=== PATIENT | female | born 1935 | race Caucasian/White ===

== ENCOUNTER 2016-08-25 18:10 | Inpatient (IN) ==
--- NOTE | 2016-08-25 18:35 | Emergency Department Note ---
Disposition Clinical Impression: UTI (urinary tract infection), Altered mental status Disposition: Admitted As Inpatient Weakness HPI - General Chief complaint: ED Weakness Stated complaint: lethargic Source: EMS Nursing Notes Reviewed: Yes Vital Signs Reviewed: Yes - History of Present Illness HPI Narrative: Patient was found unresponsive at the half-way. Per report last known well was 5 PM at dinnertime. The patient's found the 6:00 unresponsive. EMS arrived and notes that the patient was not following commands. At times been going on patient has been improving and able to follow commands. There is a report of fevers or chills no report of shortness of breath. Patient has had a questionable history of seizures in the past. The family does not believe the patient truly has seizures but they are unsure. He states this normally happens whenever she has a urinary tract infection. Pain Scale: 0 - Related Data Home Medications Medication Instructions Recorded Confirmed Carbidopa/Levodopa [Carbidopa-Levo 2 tab PO TID 12/14/15 02/22/16 ER 25-100 Tab] Aspirin [Lo-Dose Aspirin EC] 81 mg PO DAILY 01/22/16 02/22/16 Ferrous Sulfate [Iron] 325 mg PO DAILY 01/22/16 02/22/16 FluocinoNIDE 0.05% CRM [Lidex] 1 appl TP DAILY 01/22/16 02/22/16 Multivit-Min/FA/Lycopen/Lutein 1 tab PO DAILY 01/22/16 02/22/16 [Centrum Silver Tablet] Pravastatin Sodium 10 mg PO DAILY 01/22/16 02/22/16 Amlodipine Besylate 2.5 mg PO DAILY 02/22/16 02/22/16 Salicylic Acid [Dermarest 1 appl TP MOTH 02/22/16 02/22/16 Psoriasis] Previous Rx's Medication Instructions Recorded Ascorbate Calcium [Vitamin C] 500 mg PO BID #60 tablet 12/15/15 Cholecalciferol (Vitamin D3) 5,000 unit PO DAILY #30 capsule 12/15/15 [Dialyvite Vitamin D] Cranberry 800 mg PO TIDWM #180 capsule 12/15/15 Docusate [Colace] 100 mg PO BID capsule 12/15/15 Mirtazapine [Remeron] 15 mg PO HS #0 tablet 01/25/16 Ampicillin Trihydrate 500 mg PO Q6H 5 Days 02/25/16 Sulfamethoxazole/Trimeth DS 1 each PO BID 10 Days 05/23/16 [Bactrim DS] Allergies Allergy/AdvReac Type Severity Reaction Status Date / Time No Known Allergies Allergy Verified 02/22/16 10:15 All systems ED: reviewed and negative except as stated. 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 - Social History Smoking Status: Former smoker Smokeless Tobacco Status: No Alcohol use: Reports: none Drug use: Reports: none Physical Exam - General Limitations: altered mental status General appearance: alert, in no apparent distress - Head Head exam: atraumatic, normocephalic, normal inspection - Eye Eye exam: Present: PERRL, EOMI - ENT ENT exam: normal exam, normal oropharynx, mucous membranes moist - Neck Neck exam: Present: normal inspection, full ROM, trachea midline - Chest Chest inspection: Present: normal inspection, symmetric chest wall rise - Respiratory Respiratory exam: Present: normal lung sounds bilaterally, respiratory distress - Cardiovascular Cardiovascular exam: Present: regular rate, normal rhythm, normal heart sounds - Abdominal Exam Abdominal exam: Present: soft, Non-Tender. Absent: tenderness, distention, guarding, rebound, rigidity - Extremities Exam Extremities exam: Present: normal inspection, full ROM - Back Exam Back exam: Present: normal inspection, full ROM. Absent: tenderness - Neurological Exam Neurological exam: Present: alert, other (Nonverbal but able to follow commands. Left upper extremity weakness when compared to the right) - Skin Skin exam: Present: warm, dry, intact, normal color Course Vital Signs Temperature 98 F 08/25/16 18:13 Pulse Rate 92 08/25/16 18:13 Respiratory Rate 18 08/25/16 18:13 Blood Pressure 130/69 08/25/16 18:13 O2 Sat by Pulse Oximetry 97 08/25/16 18:13 Temperature 97.8 F 08/25/16 18:34 Pulse Rate 88 08/25/16 21:31 Respiratory Rate 14 08/25/16 21:31 Blood Pressure 133/85 08/25/16 21:31 O2 Sat by Pulse Oximetry 96 08/25/16 21:31 Oxygen Delivery Oxygen Delivery Room Air Weakness - Differential Diagnosis Differential Diagnosis: Likely: acute myocardial infarction, rhabdomyolysis, dehydration, stroke - Medical Records Medical records reviewed: Yes I reviewed the patient's medical records. - Lab Data Lab results reviewed: Yes I reviewed the patient's lab results. Result diagrams: 08/25/16 18:15 08/25/16 18:15 Lab Results 08/25/16 08/25/16 08/25/16 Range/Units 18:15 18:15 18:15 WBC 24.5 H (4.3-11.1) K/mcL RBC 4.71 (3.82-4.97) M/mcL Hgb 13.5 (11.5-15.4) g/dL Hct 43.2 (35.3-44.9) % MCV 91.7 (83.0-100.0) fL MCH 28.7 (28.0-33.3) pg MCHC 31.3 L (31.6-35.5) g/dL RDW 13.6 (11.5-14.5) % Plt Count 403 H (140-400) K/mcL MPV 10.4 (9.4-12.4) fL Immature Gran % 0.7 (0-4) % Seg Neutrophils % 82.5 % Lymphocytes % 10.4 % Monocytes % 5.8 % Eosinophils % 0.3 % Basophils % 0.3 % Neutrophils # 20.2 H (1.6-8.9) K/mcL Lymphocytes # 2.5 (0.6-4.6) K/mcL Monocytes # 1.4 H (0.0-1.3) K/mcL Eosinophils # 0.1 (0.0-0.6) K/mcL Basophils # 0.1 (0.0-0.2) K/mcL PT 11.1 (9.4-12.1) Seconds INR 1.0 APTT 26.4 (26.0-36.0) Seconds Sodium 142 (136-145) mEq/L Potassium 4.7 H (3.5-4.5) mEq/L Chloride 108 (98-109) mEq/L Carbon Dioxide 22 (19-29) mEq/L BUN 53 H (7-20) mg/dL Creatinine 0.95 (0.57-1.11) mg/dL Est GFR ( Amer) > 60 (> 60) Est GFR (Non-Af Amer) 57 L (> 60) BUN/Creatinine Ratio 56 H (6-26) Glucose 114 H (70-99) mg/dL Calculated Osmolality 309 H (280-300) Lactic Acid (0.5-2.2) mmol/L Calcium 10.3 (8.6-10.8) mg/dL Total Bilirubin 0.6 (0.2-1.2) mg/dL AST 13 (5-34) Units/L ALT < 6 (0-55) Units/L Alkaline Phosphatase 104 (38-126) Units/L Troponin I (0-0.03) ng/mL Serum Total Protein 7.5 (6.0-8.3) g/dL Albumin 3.2 L (3.5-5.0) g/dL Globulin 4.3 H (2.4-3.5) g/dL Albumin/Globulin Ratio 0.7 L (1.1-2.2) Urine Color (Yellow) Urine Clarity (Clear) Urine pH (5.0-8.0) pH Units Ur Specific [place] (1.010-1.025) Urine Protein (Neg-Trace) mg/dL Urine Glucose (UA) (Normal) mg/dL Urine Ketones (Negative) mg/dL Urine Blood (Negative) Urine Nitrite (Negative) Urine Bilirubin (Negative) Urine Urobilinogen (Normal) mg/dL Ur Leukocyte Esterase (Negative) Urine Microscopic RBC (0-3) per hpf Urine Microscopic WBC (0-3) per hpf Ur Squamous Epith Cells (None-Few) per lpf Urine Bacteria (None-Few) per hpf Hyaline Casts (None-Few) per lpf Ur Culture Indicated? (NO) 08/25/16 08/25/16 08/25/16 Range/Units 18:15 18:15 20:50 WBC (4.3-11.1) K/mcL RBC (3.82-4.97) M/mcL Hgb (11.5-15.4) g/dL Hct (35.3-44.9) % MCV (83.0-100.0) fL MCH (28.0-33.3) pg MCHC (31.6-35.5) g/dL RDW (11.5-14.5) % Plt Count (140-400) K/mcL MPV (9.4-12.4) fL Immature Gran % (0-4) % Seg Neutrophils % % Lymphocytes % % Monocytes % % Eosinophils % % Basophils % % Neutrophils # (1.6-8.9) K/mcL Lymphocytes # (0.6-4.6) K/mcL Monocytes # (0.0-1.3) K/mcL Eosinophils # (0.0-0.6) K/mcL Basophils # (0.0-0.2) K/mcL PT (9.4-12.1) Seconds INR APTT (26.0-36.0) Seconds Sodium (136-145) mEq/L Potassium (3.5-4.5) mEq/L Chloride (98-109) mEq/L Carbon Dioxide (19-29) mEq/L BUN (7-20) mg/dL Creatinine (0.57-1.11) mg/dL Est GFR ( Amer) (> 60) Est GFR (Non-Af Amer) (> 60) BUN/Creatinine Ratio (6-26) Glucose (70-99) mg/dL Calculated Osmolality (280-300) Lactic Acid 2.8 H (0.5-2.2) mmol/L Calcium (8.6-10.8) mg/dL Total Bilirubin (0.2-1.2) mg/dL AST (5-34) Units/L ALT (0-55) Units/L Alkaline Phosphatase (38-126) Units/L Troponin I 0.02 (0-0.03) ng/mL Serum Total Protein (6.0-8.3) g/dL Albumin (3.5-5.0) g/dL Globulin (2.4-3.5) g/dL Albumin/Globulin Ratio (1.1-2.2) Urine Color Yellow (Yellow) Urine Clarity Cloudy A (Clear) Urine pH 6.0 (5.0-8.0) pH Units Ur Specific [place] 1.021 (1.010-1.025) Urine Protein Trace (Neg-Trace) mg/dL Urine Glucose (UA) Normal (Normal) mg/dL Urine Ketones Trace H (Negative) mg/dL Urine Blood Negative (Negative) Urine Nitrite Negative (Negative) Urine Bilirubin Negative (Negative) Urine Urobilinogen Normal (Normal) mg/dL Ur Leukocyte Esterase Large H (Negative) Urine Microscopic RBC 3-5 H (0-3) per hpf Urine Microscopic WBC TNTC H (0-3) per hpf Ur Squamous Epith Cells Few (None-Few) per lpf Urine Bacteria Many H (None-Few) per hpf Hyaline Casts None Seen (None-Few) per lpf Ur Culture Indicated? YES A (NO) - Radiology Data Radiology results reviewed: Yes I reviewed the patient's radiology results. Head CT 08/25/16 00:00 IMPRESSION: 1. No acute intracranial abnormality. 2. Acute right sphenoid sinusitis. 3. Cerebral and cerebellar parenchymal volume loss with severe chronic microvascular white matter ischemic disease, stable. Results discussed with Dr. Shannon at 1840 hours on 08/25/2012. D/ / 08/25/2016 18:56:46 Angelito Cabezas MD / luisito Interpreting Provider: Angelito Cabezas MD Chest X-Ray 08/25/16 18:34 IMPRESSION: 1. Emphysema and sequela of old granulomatous disease, stable. No new lung infiltrate. D/ / Angelito Cabezas MD / Angelito Cabezas MD Interpreting Provider: Angelito Cabezas MD - EKG Data EKG attestation: Yes I reviewed and interpreted this EKG. EKG shows normal: sinus rhythm Rate: normal Rhythm: NSR Critical Care Time Total Critical Care Time: 45 Attestation: Critical care performed: Time is exclusive of separately billable procedures. Time includes: direct patient care, patient reassessment, coordination of patient care, interpretation of data (laboratory data, radiology data, and respiratory data), review of patient's medical records, medical consultation and documentation of patient care. Procedures included in critical care time: Procedures excluded from critical care time:
[2016-08-25 18:41] LABS: Basophils # 0.1 K/mcL (0.0-0.2); Basophils % 0.3 %; Eosinophils # 0.1 K/mcL (0.0-0.6); Eosinophils % 0.3 %; Hematocrit 43.2 % (35.3-44.9); Hemoglobin 13.5 g/dL (11.5-15.4); Immature Granulocytes % 0.7 % (0-4); Lymphocytes # 2.5 K/mcL (0.6-4.6); Lymphocytes % 10.4 %; Mean Corpuscular HGB Conc 31.3 g/dL (31.6-35.5); Mean Corpuscular Hemoglobin 28.7 pg (28.0-33.3); Mean Corpuscular Volume 91.7 fL (83.0-100.0); Mean Platelet Volume 10.4 fL (9.4-12.4); Monocytes # 1.4 K/mcL (0.0-1.3); Monocytes % 5.8 %; Neutrophils # 20.2 K/mcL (1.6-8.9); Platelet Count 403 K/mcL (140-400); Red Blood Count 4.71 M/mcL (3.82-4.97); Red Cell Distribution Width 13.6 % (11.5-14.5); Segmented Neutrophils % 82.5 %
[2016-08-25 18:48] LABS: Prothrombin Time 11.1 Seconds (9.4-12.1)
[2016-08-25 18:50] LABS: Albumin 3.2 g/dL (3.5-5.0); Albumin/Globulin Ratio 0.7 (1.1-2.2); Alkaline Phosphatase 104 Units/L (38-126); Aspartate Amino Transferase 13 Units/L (5-34); BUN/Creatinine Ratio 56 (6-26); Bilirubin,Total 0.6 mg/dL (0.2-1.2); Blood Urea Nitrogen 53 mg/dL (7-20); Calcium 10.3 mg/dL (8.6-10.8); Carbon Dioxide 22 mEq/L (19-29); Chloride 108 mEq/L (98-109); Globulin 4.3 g/dL (2.4-3.5); Glucose 114 mg/dL (70-99); Osmolality,Calculated 309 (280-300); Potassium 4.7 mEq/L (3.5-4.5); Sodium 142 mEq/L (136-145); Total Protein 7.5 g/dL (6.0-8.3); eGFR For African Americans > 60 (> 60); eGFR For Non-African Americans 57 (> 60)
[2016-08-25 18:51] LABS: Activated Partial Thrombo Time 26.4 Seconds (26.0-36.0)
[2016-08-25 18:56] LABS: Alanine Aminotransferase < 6 Units/L (0-55)
[2016-08-25] MEDS ORDERED: 0.9 % Sodium Chloride 500 ML IV ONE (19:11)
[2016-08-25] MEDS ORDERED: Levofloxacin 750 MG/150 ML 750 MG/150 ML BAG IVPB ONE (19:12)
[2016-08-25] MEDS ORDERED: 0.9 % Sodium Chloride 500 ML IVC ONE (20:50)
[2016-08-25 21:09] LABS: Bilirubin,Urine Negative (Negative); Blood,Urine Negative (Negative); Clarity,Urine Cloudy (Clear); Color,Urine Yellow (Yellow); Glucose,Urine (UA) Normal (Normal); Ketones,Urine Trace mg/dL (Negative); Leukocyte Esterase,Urine Large (Negative); Nitrite,Urine Negative (Negative); Protein,Urine Trace mg/dL (Neg-Trace); Specific Gravity,Urine 1.021 (1.010-1.025); Urobilinogen,Urine Normal (Normal)
[2016-08-25 21:12] LABS: Bacteria,Urine Many per hpf (None-Few); Hyaline Casts,Urine None Seen per lpf (None-Few); WBC,Urine TNTC per hpf (0-3)
[2016-08-25 21:27] LABS: Squamous Epithelial Cell,Urine Few per lpf (None-Few)
[2016-08-25] MEDS ORDERED: Phenytoin 1,000 MG in SYRINGE 1 EACH IVPB ONE (21:50)
--- NOTE | 2016-08-25 23:24 | Internal Med History&Physical ---
Date of Encounter: 08/26/16 Time of Encounter: 23:19 Assessment and Plan (1) Seizure Current visit: Yes Status: Acute Patient sustained a grand mal seizure as she had periods of unresponsiveness after full body tonic-clonic movements Start patient on Dilantin 100 mg 3 times a day Consult neurology, appreciate recommendations Obtain Dilantin level and procalcitonin in the morning (2) UTI (urinary tract infection) Current visit: No Status: Acute Patient does have history of recurrent urinary tract infections including several organisms resistant to multiple drugs Previous culture sensitivities reviewed, will start patient on nitrofurantoin and Levaquin Urine and blood cultures have been collected, await sensitivities Qualifiers: Urinary tract infection type: acute cystitis Hematuria presence: without hematuria Qualified Code(s): N30.00 - Acute cystitis without hematuria (3) Hypertension Current visit: Yes Status: Chronic Blood pressure is stable since admission We will continue home Norvasc dose monitor vital signs closely Qualifiers: Qualified Code(s): I10 - Essential (primary) hypertension (4) DVT prophylaxis Current visit: No Status: Acute heparin 5000 units subcutaneous twice a day Internal Medicine - H&P: HPI Chief complaint: Seizure, UTI Admitted From: Long-term Nursing Facility Plans for Post Hospital Care: Transfer Medical Technician Care History of present illness: Ms. Campos is a 81 year old female who presents from [facility] with reported seizure and UTI. Staff at [facility] noted that the seizure occurred on Thursday and she had episodes of unresponsiveness the next couple days which led to the ER visit. Has history of dementia and Parkinson's and is a poor historian, daughters at bedside and able to provide entire history. She states that her mother has had history of seizures over the past 3-4 months and was evaluated as an outpatient by neurology where an EEG was found to be negative 1.5 months ago. She was started on Keppra. There was one episode of fall, but she denies any injury to the head. Daughter also noted that patient has been having recurrent UTIs over the past year and a half and has required multiple antibiotic regimens. She states that she gets altered mental status during these episodes and is unsure if the seizures are being mistaken for symptoms from her UTI's. Patient is able to respond to commands appropriately but is unable to answer questions appropriately. At this time she denies any pain, shortness of breath, fevers. Past Med Surg Social Fam HX - Past Medical History Medical history: arthritis, COPD, dementia, GERD, hypertension, osteoporosis, renal disease, syncope, other Psychiatric history: no psych history - Past Surgical History Surgical History: hysterectomy, ALCIDES/BSO, other - Social History Smoking Status: Former smoker Smokeless Tobacco Status: No Alcohol use: none Drug use: none - Family History Mother Hx Family Respiratory Disorders: Yes (Empyhsema) Brother Hx Family Respiratory Disorders: Yes (empyhema) Internal Medicine - H&P: Meds Carbidopa/Levodopa [Carbidopa-Levo ER 25-100 Tab] 2 tab PO TID 12/14/15 [History ] Ascorbate Calcium [Vitamin C] 500 mg PO BID #60 tablet 12/15/15 [Rx] Cholecalciferol (Vitamin D3) [Dialyvite Vitamin D] 5,000 unit PO DAILY #30 capsule 12/15/15 [Rx] Cranberry 800 mg PO TIDWM #180 capsule 12/15/15 [Rx] Docusate [Colace] 100 mg PO BID capsule 12/15/15 [Rx] Aspirin [Lo-Dose Aspirin EC] 81 mg PO DAILY 01/22/16 [History] Ferrous Sulfate [Iron] 325 mg PO DAILY 01/22/16 [History] FluocinoNIDE 0.05% CRM [Lidex] 1 appl TP DAILY 01/22/16 [History] Multivit-Min/FA/Lycopen/Lutein [Centrum Silver Tablet] 1 tab PO DAILY 01/22/16 [ History] Pravastatin Sodium 10 mg PO DAILY 01/22/16 [History] Amlodipine Besylate 2.5 mg PO DAILY 02/22/16 [History] Salicylic Acid/Ceramide Cmb #1 [Salicylic Acid 6% Cream Kit] 1 each TP MOTH [History] Hydrocortisone 1% CREAM [Cortaid] 1 appl TP TID PRN 08/26/16 [History] Ketoconazole Shampoo [Nizoral Shampoo] 1 appl TP DAILY PRN 08/26/16 [History] LevETIRAcetam [Keppra] 250 mg PO BID 08/26/16 [History] Magnesium Hydroxide [Milk of Magnesia] 30 ml PO DAILY PRN 08/26/16 [History] Megestrol Acetate [Megace] 400 mg PO DAILY 08/26/16 [History] Promethazine [Phenergan] 12.5 mg RC Q8H PRN 08/26/16 [History] Allergies No Known Allergies Allergy (Verified 02/22/16 10:15) ROS unobtainable: due to mental status All Systems PM: A 10-system review of systems was performed and is negative for pertinent findings except as documented above in the HPI. - Constitutional Vitals: Temp Pulse Resp BP Pulse Ox 97.8 F 88 14 133/85 96 08/25/16 18:34 08/25/16 21:31 08/25/16 21:31 08/25/16 21:31 08/25/16 21:31 General appearance: Present: A&O X 0, disheveled. Absent: answers questions appropriately - Head Head exam: Present: atraumatic, normocephalic - Eye Eye exam: Present: PERRL, conjuntiva pink, sclera anicteric - Neck Neck exam general surgery: Present: supple, trachea midline. Absent: lymphadenopathy - Respiratory Respiratory exam: Present: CTAB. Absent: accessory muscle use, rales, rhonchi, wheezes - Cardiovascular Cardiovascular exam: Present: RRR, +S1, +S2. Absent: diastolic murmur, gallop, rubs, systolic murmur - GI/Abdominal GI/Abdominal exam: Present: normal bowel sounds, soft, no peritoneal signs. Absent: distended, tenderness - Extremities Exam Extremities exam: Present: warm, radial pulses palpable and symetrical. Absent : calf tenderness, cyanotic, pedal edema - Neurological Exam Neurological exam: Present: altered. Absent: oriented X3, facial droop, speech deficit - Skin Skin exam: Present: dry, intact Internal Med - H&P Results - Labs CBC & Chem 7: 08/25/16 18:15 08/25/16 18:15
[2016-08-25] MEDS ORDERED: Naloxone 0.4 MG/ML INJ IVP PRN (23:33)
[2016-08-25] MEDS ORDERED: Ondansetron ODT 4 MG TAB.RAPDIS SL PRN (23:33)
[2016-08-25] MEDS ORDERED: Acetaminophen 325 MG TABLET PO PRN (23:33)
--- NOTE | 2016-08-26 04:05 | Event Note ---
Date of Encounter: 08/26/16 Time of Encounter: 04:02 Patient seen and examined with internist medical doctor md. Patient presents with what appears to be a grand mal seizure. She is also found to have a urinary tract infection. Patient will be loaded with Dilantin. Continue Dilantin 100 mg 3 times a day. Dilantin level in a.m. Neurology consult. According to parent cultures patient will be started on antibiotics for UtI in the form of Levaquin and nitrofurantoin. Patients were dehydrated. Physical therapy will see the patient. Daughter was the power of commercial attorney is yet to decide about her code status. Daughter is not yet decided.
[2016-08-26] MEDS ORDERED: PHENYTOIN IVPB SCH (06:00)
[2016-08-26] MEDS: *HR* Heparin 5,000 UNIT/ML VIAL SQ SCH ×2 (06:16→19:07)
[2016-08-26 06:34] LABS: Basophils # 0.1 K/mcL (0.0-0.2); Basophils % 0.2 %; Hematocrit 35.2 % (35.3-44.9); Immature Granulocytes % 0.8 % (0-4); Lymphocytes # 1.6 K/mcL (0.6-4.6); Lymphocytes % 7.2 %; Mean Corpuscular HGB Conc 32.1 g/dL (31.6-35.5); Mean Corpuscular Volume 90.5 fL (83.0-100.0); Mean Platelet Volume 10.6 fL (9.4-12.4); Monocytes # 1.5 K/mcL (0.0-1.3); Monocytes % 6.8 %; Neutrophils # 19.1 K/mcL (1.6-8.9); Platelet Count 361 K/mcL (140-400); Red Blood Count 3.89 M/mcL (3.82-4.97); Red Cell Distribution Width 13.4 % (11.5-14.5)
[2016-08-26 06:37] LABS: Hemoglobin 11.3 g/dL (11.5-15.4)
[2016-08-26 06:47] LABS: BUN/Creatinine Ratio 68 (6-26); Blood Urea Nitrogen 47 mg/dL (7-20); Carbon Dioxide 17 mEq/L (19-29); Chloride 115 mEq/L (98-109); Glucose 89 mg/dL (70-99); Magnesium 1.7 mg/dL (1.6-2.6); Osmolality,Calculated 310 (280-300); Phosphorous 2.2 mg/dL (2.3-4.7); Potassium 3.7 mEq/L (3.5-4.5); Sodium 144 mEq/L (136-145); eGFR For African Americans > 60 (> 60); eGFR For Non-African Americans > 60 (> 60)
[2016-08-26] MEDS ORDERED: Aminoglycoside Consult 1 EACH MC ONE (08:01)
[2016-08-26] MEDS: Aspirin Enteric Coated 81 MG Tablet PO SCH (08:54)
[2016-08-26] MEDS: amLODIPine 5 MG TABLET PO SCH (08:54)
[2016-08-26] MEDS: Carbidopa/Levodopa 25/100 TABLET PO SCH ×3 (08:54→22:00)
--- NOTE | 2016-08-26 08:56 | Internal Med Progress Note ---
<Stephanie Bill - Last Filed: 08/26/16 11:33> Date of Encounter: 08/26/16 Time of Encounter: 08:54 - Assessment and plan (1) Seizure Current Visit: Yes Status: Acute Assessment and plan: Tonic-clonic seizure reported by family followed by period of unresponsiveness Dilantin 100mg TID Dilantin level this am 26.0 (ref 10-20) Procalcitonin level pending, lab reports that result will be available in 2-3 days Will await neurology recommendations (2) UTI (urinary tract infection) Current Visit: Yes Status: Acute Assessment and plan: WBC today 22.6 with neutrophilia 19.1 History of multiple UTIs with drug resistant organisms 06/12/16 urine culture grew multi-drug resistent Serratia plymuthica, VRE Serratia was susceptible to Gentamycin, Nitrofurantion Will continue Levaquin and Nitrofurantoin Urine cultures, pending Qualifiers: Urinary tract infection type: acute cystitis Hematuria presence: without hematuria Qualified Code(s): N30.00 - Acute cystitis without hematuria (3) Altered mental status Current Visit: Yes Status: Acute Assessment and plan: Qualifiers: Altered mental status type: unspecified Qualified Code(s): R41.82 - Altered mental status, unspecified (4) Hypertension Current Visit: Yes Status: Chronic Assessment and plan: Stable since admission Continue home dose Norvasc Closely monitor vital signs Qualifiers: Hypertension type: essential hypertension Qualified Code(s): I10 - Essential (primary) hypertension (5) Hypophosphatasia Current Visit: Yes Status: Acute Assessment and plan: Replaced, continue to monitor. (6) DVT prophylaxis Current Visit: No Status: Acute Assessment and plan: Heparin 5000u q 12 hr - Time Spent With Patient less than 15 minutes - Subjective Interval history: Patient presented to hospital from [facility]. She was admitted last evening for grand mal seizure that occurred Thursday followed by periods of unresponsiveness the next couple of days. She was placed on Dilantin 100mg TID. Patient is in room alone this morning. She has apparent altered mental status. However, I am unclear as to her baseline status given Parkinson's disease and dementia. Does respond to yes and no questioning, but does reply when asked her name or . She did have multiple episode of sneeze productive of mucopurulent discharge. She does not wince to pain when palpating abdomen. - Constitutional Vitals: Temp Pulse Resp BP Pulse Ox 98 F 100 14 118/72 95 08/26/16 08:19 08/26/16 08:19 08/26/16 08:19 08/26/16 08:19 08/26/16 08:19 General appearance: Present: cachectic, A&O X 0, disheveled. Absent: answers questions appropriately - Head Head exam: Present: atraumatic, normal inspection - Eye Eye exam: Present: EOMI - Neck Neck exam general surgery: Present: full ROM - Respiratory Respiratory exam: Absent: rhonchi, wheezes Additional comments: sonorous upper respiratory sounds - Cardiovascular Cardiovascular exam: Present: RRR, +S1, +S2 - GI/Abdominal GI/Abdominal exam: Present: normal bowel sounds, soft. Absent: tenderness ( patient did not wince to palpation), no peritoneal signs - Extremities Exam Extremities exam: Present: normal capillary refill, normal inspection, warm. Absent: pedal edema - Neurological Exam Neurological exam: Present: altered. Absent: facial droop - Skin Skin exam: Present: dry, warm Internal Medicine: Result - Labs CBC & Chem 7: 08/26/16 06:15 08/26/16 06:15 Labs: Short CBC 08/26/16 Range/Units 06:15 WBC 22.6 H (4.3-11.1) K/mcL Hgb 11.3 L D (11.5-15.4) g/dL Hct 35.2 L (35.3-44.9) % Plt Count 361 (140-400) K/mcL Neutrophils # 19.1 H (1.6-8.9) K/mcL BMP 08/26/16 06:15 Sodium 144 Potassium 3.7 D Chloride 115 H Carbon Dioxide 17 L BUN 47 H Creatinine 0.69 Glucose 89 Calcium 9.0 - ABG Interpretation ABG results: PT/INR, D-dimer PT 11.1 Seconds (9.4-12.1) 08/25/16 18:15 - Impressions Head CT 08/25/16 00:00 IMPRESSION: 1. No acute intracranial abnormality. 2. Acute right sphenoid sinusitis. 3. Cerebral and cerebellar parenchymal volume loss with severe chronic microvascular white matter ischemic disease, stable. Results discussed with Dr. Shannon at 1840 hours on 08/25/2012. D/ / 08/25/2016 18:56:46 Angelito Cabezas MD / luisito Interpreting Provider: Angelito Cabezas MD Chest X-Ray 08/25/16 18:34 IMPRESSION: 1. Emphysema and sequela of old granulomatous disease, stable. No new lung infiltrate. D/ / Angelito Cabezas MD / Angelito Cabezas MD Interpreting Provider: Angelito Cabezas MD Consult Discharge Plan - Plan Referrals: Taty Cruz MD [Primary Care Provider] - - Attending Attestation I examined this patient and my medical decision-making was reviewed with the BITUMASTIC APPLIER/PA/Advanced Practice Nurse/Resident Physician. I agree with the documented findings, disposition and treatment plan as described except to the extent set forth below. <MilajerryHakeem H - Last Filed: 08/26/16 11:45> Date of Encounter: 08/26/16 - Constitutional Vitals: Temp Pulse Resp BP Pulse Ox 98 F 100 14 118/72 95 08/26/16 08:19 08/26/16 08:19 08/26/16 08:19 08/26/16 08:19 08/26/16 08:30 Internal Medicine: Result - Labs CBC & Chem 7: 08/26/16 06:15 08/26/16 06:15 Labs: Short CBC 08/26/16 Range/Units 06:15 WBC 22.6 H (4.3-11.1) K/mcL Hgb 11.3 L D (11.5-15.4) g/dL Hct 35.2 L (35.3-44.9) % Plt Count 361 (140-400) K/mcL Neutrophils # 19.1 H (1.6-8.9) K/mcL BMP 08/26/16 06:15 Sodium 144 Potassium 3.7 D Chloride 115 H Carbon Dioxide 17 L BUN 47 H Creatinine 0.69 Glucose 89 Calcium 9.0 - ABG Interpretation ABG results: PT/INR, D-dimer PT 11.1 Seconds (9.4-12.1) 08/25/16 18:15 - Attending Attestation Acute metabolic encephalopathy likely secondary to urinary tract infection/ seizure disorder The patient is not swallowing the nitrofurantoin at this point, start gentamicin IV as Serratia was only sensitive to do stool antibiotics on the prior culture. Await new cultures to decide on antibiotic therapy Appreciate neurology recommendations Fall and aspiration precautions
[2016-08-26] MEDS ORDERED: WATER IVPB ONE (10:04)
[2016-08-26] MEDS ORDERED: D5 IVPB ONE (10:04)
[2016-08-26] MEDS ORDERED: SODIUM PHOSPHATE IVPB ONE (10:04)
[2016-08-26] MEDS ORDERED: Gentamicin 50 MG in 0.9 % Sodium Chloride 100 ML IVPB ONE (13:00)
[2016-08-26] MEDS: SODIUM CHLORIDE 0.9% IVPB SCH ×2 (13:47→22:15)
[2016-08-26] MEDS: AMPICILLIN IVPB SCH ×2 (13:47→22:15)
[2016-08-26] MEDS ORDERED: 0.9 % Sodium Chloride 500 ML ONE (14:43)
--- NOTE | 2016-08-26 16:59 | Neurology - Consult Note ---
Date of Encounter: 08/26/16 Time of Encounter: 16:53 Assessment and Plan (1) Altered mental status Current Visit: No Status: Acute Patient presents with altered mental status. The differential diagnosis is fairly large and would include delirium secondary to urinary tract infection, acute dehydration, she could have some element of Dilantin toxicity. She could have a protracted postictal state, she may also have a subclinical status. I do not suspect a central nervous system infectious process. She has no nuchal rigidity, the neck is supple. My plan at this point is to discontinue the Dilantin, I would prefer Keppra 500 mg IV twice a day. I will obtain an EEG in the morning. I would expect however that as her urinary tract infection improves in her metabolic status returns to baseline and that the delirium should resolve. Qualifiers: Altered mental status type: unspecified Qualified Code(s): R41.82 - Altered mental status, unspecified History of Present Illness HPI: Ms. Campos is a 81 year old female who was seen for neurologic consultation secondary to lethargy and confusion. 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 There is a question as to whether or not she has a seizure disorder. Apparently on the day of admission she had dinner at the [place] at about 5:00 in the evening. At about 6:00 which was one hour later that same evening she was found by staff to be on conscious and unarousable. There is question as to whether or not she may have had generalized tonic-clonic seizure. Upon arrival to the [facility] she was found to have a urinary tract infection as well as says evidence of kidney failure. She has not had any apparent seizure activity since admission, she remains confused however is a bit more responsive. However she is not verbal nor she following commands. The history is obtained from nursing staff as well as the medical record. She has not been febrile since admission. She was loaded on Dilantin however it is supratherapeutic at 26.0. The urine was elevated at 53, creatinine was 0.95. Urine revealed a high leukocyte esterase and multiple bacteria and WBCs. CT scan of the head reveals diffuse atrophy, along with a chronic white matter changes. Past Med Surg Social Fam HX - Past Medical History Medical history: arthritis, COPD, dementia, GERD, hypertension, osteoporosis, renal disease, syncope, other Psychiatric history: no psych history - Past Surgical History Surgical History: hysterectomy, ALCIDES/BSO, other - Social History Smoking Status: Former smoker Smokeless Tobacco Status: No Alcohol use: none Drug use: none - Family History Mother Hx Family Respiratory Disorders: Yes (Empyhsema) Hx Family Neurologic Disorders: Yes (CVA) Brother Hx Family Respiratory Disorders: Yes (empyhema) Medications and Allergies Carbidopa/Levodopa [Carbidopa-Levo ER 25-100 Tab] 2 tab PO TID 12/14/15 [History ] Ascorbate Calcium [Vitamin C] 500 mg PO BID #60 tablet 12/15/15 [Rx] Cholecalciferol (Vitamin D3) [Dialyvite Vitamin D] 5,000 unit PO DAILY #30 capsule 12/15/15 [Rx] Cranberry 800 mg PO TIDWM #180 capsule 12/15/15 [Rx] Docusate [Colace] 100 mg PO BID capsule 12/15/15 [Rx] Aspirin [Lo-Dose Aspirin EC] 81 mg PO DAILY 01/22/16 [History] FluocinoNIDE 0.05% CRM [Lidex] 1 appl TP DAILY 01/22/16 [History] Multivit-Min/FA/Lycopen/Lutein [Centrum Silver Tablet] 1 tab PO DAILY 01/22/16 [ History] Pravastatin Sodium 10 mg PO DAILY 01/22/16 [History] Amlodipine Besylate 2.5 mg PO DAILY 02/22/16 [History] Salicylic Acid/Ceramide Cmb #1 [Salicylic Acid 6% Cream Kit] 1 each TP MOTH [History] Ferrous Gluconate 324 mg PO DAILY 08/26/16 [History] Hydrocortisone 1% CREAM [Cortaid] 1 appl TP TID PRN 08/26/16 [History] Ketoconazole Shampoo [Nizoral Shampoo] 1 appl TP DAILY PRN 08/26/16 [History] LevETIRAcetam [Keppra] 250 mg PO BID 08/26/16 [History] Magnesium Hydroxide [Milk of Magnesia] 30 ml PO DAILY PRN 08/26/16 [History] Megestrol Acetate [Megace] 10 ml PO DAILY 08/26/16 [History] Promethazine [Phenergan] 12.5 mg RC Q8H PRN 08/26/16 [History] Allergies No Known Allergies Allergy (Verified 08/26/16 10:51) ROS unobtainable: due to mental status All Systems: A 10-system review of systems was performed and is negative for pertinent findings except as documented above in the HPI. Physical Examination - Vital Signs Vital Signs: Initial Vital Signs Temp Pulse Resp BP Pulse Ox 98 F 92 18 130/69 97 08/25/16 18:13 08/25/16 18:13 08/25/16 18:13 08/25/16 18:13 08/25/16 18:13 - Exam Exam: Neurologic examination is as follows: For cerebral functions she is arousable, she does make eye contact however, she does not follow commands and she is agitated. Somewhat lethargic. She withdraws appropriately from noxious stim. Every now and then she will moan or groan but she is not speaking in words at this time. But again she is responsive to environmental stimuli. Pupils are equal and reactive to light, extraocular motility appears to be intact. There is no facial asymmetry identified. Motor exam finds no involuntary movements are present now, she has normal tone of the upper and lower extremities. She does appear to be malnourished however. She does withdraw all 4 extremities to noxious stim. Sensory examination is difficult to perform on a confused patient however again she withdraws all 4 extremities to tactile stim. The deep tendon reflexes are 1 symmetrically in the biceps triceps brachioradialis absent at the patella and Achilles. No Babinski or clonus are present. Results - Laboratory Findings CBC and BMP: 08/26/16 06:15 08/26/16 06:15 Abnormal lab findings: Abnormal lab results WBC 22.6 K/mcL (4.3-11.1) H 08/26/16 06:15 Hgb 11.3 g/dL (11.5-15.4) L D 08/26/16 06:15 Hct 35.2 % (35.3-44.9) L 08/26/16 06:15 Neutrophils # 19.1 K/mcL (1.6-8.9) H 08/26/16 06:15 Monocytes # 1.5 K/mcL (0.0-1.3) H 08/26/16 06:15 Chloride 115 mEq/L (98-109) H 08/26/16 06:15 Carbon Dioxide 17 mEq/L (19-29) L 08/26/16 06:15 BUN 47 mg/dL (7-20) H 08/26/16 06:15 BUN/Creatinine Ratio 68 (6-26) H 08/26/16 06:15 POC Glucose 111 (58-89) H 08/25/16 18:17 Calculated Osmolality 310 (280-300) H 08/26/16 06:15 Lactic Acid 2.8 mmol/L (0.5-2.2) H 08/25/16 18:15 Phosphorus 2.2 mg/dL (2.3-4.7) L 08/26/16 06:15 Albumin 3.2 g/dL (3.5-5.0) L 08/25/16 18:15 Globulin 4.3 g/dL (2.4-3.5) H 08/25/16 18:15 Albumin/Globulin Ratio 0.7 (1.1-2.2) L 08/25/16 18:15 Urine Clarity Cloudy (Clear) A 08/25/16 20:50 Urine Ketones Trace mg/dL (Negative) H 08/25/16 20:50 Ur Leukocyte Esterase Large (Negative) H 08/25/16 20:50 Urine Microscopic RBC 3-5 per hpf (0-3) H 08/25/16 20:50 Urine Microscopic WBC TNTC per hpf (0-3) H 08/25/16 20:50 Urine Bacteria Many per hpf (None-Few) H 08/25/16 20:50 Ur Culture Indicated? YES (NO) A 08/25/16 20:50 Phenytoin 26.0 mcg/mL (10-20) H 08/26/16 06:15 Consult Discharge Plan - Plan Referrals: Taty Cruz MD [Primary Care Provider] -
--- NOTE | 2016-08-26 18:28 | Electrocardiograph Report ---
[place] [id number] Test Date: 2016-08-25 Pat Name: Elodia Campos Department: 103 Room: [facility] Gender: F [employer]: : [id number] Requested By: Anjel Shannon Order Number: [id number] Reading MD: Susan Calderon Measurements Intervals [place] Rate: 94 P: 69 TX: 125 QRS: 64 QRSD: 74 T: 68 QT: 340 QTc: 392 Interpretive Statements SINUS RHYTHM NONSPECIFIC ST \T\ T-WAVE ABNORMALITY Electronically Signed On 08-26-2016 18:26:06 EST by Susan Calderon
[2016-08-26] MEDS ORDERED: Levofloxacin 750 MG/150 ML 750 MG/150 ML BAG IVPB SCH (21:00)
[2016-08-26] MEDS: Mirtazapine 15 MG TABLET PO SCH (22:00)
[2016-08-27] MEDS: Gentamicin 40 MG in 0.9 % Sodium Chloride 100 ML IVPB SCH ×2 (00:26→14:01)
[2016-08-27] MEDS ORDERED: D5% in 0.45% NACL 1,000 ML IVC SCH (04:00)
[2016-08-27] MEDS: SODIUM CHLORIDE 0.9% IVPB SCH ×3 (04:08→21:32)
[2016-08-27] MEDS: AMPICILLIN IVPB SCH ×3 (04:08→21:32)
[2016-08-27] MEDS: *HR* Heparin 5,000 UNIT/ML VIAL SQ SCH ×2 (06:03→18:18)
[2016-08-27 07:02] LABS: Mean Corpuscular HGB Conc 31.6 g/dL (31.6-35.5); Mean Corpuscular Volume 91.8 fL (83.0-100.0); Mean Platelet Volume 10.7 fL (9.4-12.4); Platelet Count 350 K/mcL (140-400); Red Blood Count 4.14 M/mcL (3.82-4.97); Red Cell Distribution Width 13.3 % (11.5-14.5)
[2016-08-27 07:12] LABS: BUN/Creatinine Ratio 40 (6-26); Calcium 8.7 mg/dL (8.6-10.8); Carbon Dioxide 17 mEq/L (19-29); Chloride 117 mEq/L (98-109); Glucose 105 mg/dL (70-99); Osmolality,Calculated 304 (280-300); Potassium 3.4 mEq/L (3.5-4.5); Sodium 145 mEq/L (136-145); eGFR For African Americans > 60 (> 60); eGFR For Non-African Americans > 60 (> 60)
[2016-08-27 07:17] LABS: Blood Urea Nitrogen 24 mg/dL (7-20)
[2016-08-27] MEDS: Aspirin Enteric Coated 81 MG Tablet PO SCH (07:36)
[2016-08-27] MEDS: amLODIPine 5 MG TABLET PO SCH (07:36)
[2016-08-27] MEDS: Carbidopa/Levodopa 25/100 TABLET PO SCH ×3 (07:37→21:57)
--- NOTE | 2016-08-27 10:31 | Internal Med Progress Note ---
<Stephanie Bill - Last Filed: 08/27/16 14:01> Date of Encounter: 08/27/16 Time of Encounter: 13:30 - Assessment and plan (1) Seizure Current Visit: Yes Status: Acute Assessment and plan: Tonic-clonic seizure reported by [facility] followed by periods of unresponsiveness Patient was seen by neurology who started Keppra 500mg IV q 12 hr. Dilantin was discontinued. Procalcitonin level pending (2) UTI (urinary tract infection) Current Visit: Yes Status: Acute Assessment and plan: WBC down today to 12 from 22.6 yesterday History of multiple UTIs with drug resistant organisms Preliminary urine culture grew Gram positive cocci, will await final result Levaquin was discontinued yesterday and Ampicillin 750mg q 8 hr was started to cover Gram positive cocci We will continue nitrofurantoin Qualifiers: Urinary tract infection type: acute cystitis Hematuria presence: without hematuria Qualified Code(s): N30.00 - Acute cystitis without hematuria (3) Altered mental status Current Visit: Yes Status: Acute Assessment and plan: Qualifiers: Altered mental status type: unspecified Qualified Code(s): R41.82 - Altered mental status, unspecified (4) Hypertension Current Visit: Yes Status: Chronic Assessment and plan: Stable since admission Continue home dose Norvasc Closely monitor vital signs Qualifiers: Hypertension type: essential hypertension Qualified Code(s): I10 - Essential (primary) hypertension (5) At risk for aspiration Current Visit: Yes Status: Acute Assessment and plan: Swallow study performed by speech therapy Recommend NPO Will consider NGT feeds to provide nutrition altered mental status resolves (6) Hypokalemia Current Visit: Yes Status: Acute Assessment and plan: Replaced Will follow chemistry (7) DVT prophylaxis Current Visit: No Status: Acute Assessment and plan: Heparin 5000u q 12 hr - Time Spent With Patient 25 - 35 minutes - Subjective Interval history: Patient's mental status, not improved per nurse. However, I am unclear as to her baseline status given Parkinson's disease and dementia. She has agitation to any stimulation. Evaluation by speech therapy. She is NPO because she exhibited aspiration with thickened liquid. - Constitutional Vitals: Temp Pulse Resp BP Pulse Ox 98.2 F 82 14 144/80 98 08/27/16 08:14 08/27/16 08:14 08/27/16 08:14 08/27/16 08:14 08/27/16 08:14 General appearance: Present: cachectic, A&O X 0, disheveled. Absent: answers questions appropriately - Head Head exam: Present: atraumatic, normal inspection - Neck Neck exam general surgery: Present: full ROM - Respiratory Respiratory exam: Present: rhonchi. Absent: accessory muscle use, rales, respiratory distress, tachypnea Additional comments: coarse lung sounds in left upper lobe - Cardiovascular Cardiovascular exam: Present: RRR, +S1, +S2. Absent: irregular rhythm, tachycardia Internal Medicine: Result - Labs CBC & Chem 7: 08/27/16 06:44 08/27/16 06:44 Labs: Short CBC 08/27/16 Range/Units 06:44 WBC 12.0 H (4.3-11.1) K/mcL Hgb 12.0 (11.5-15.4) g/dL Hct 38.0 (35.3-44.9) % Plt Count 350 (140-400) K/mcL BMP 08/27/16 06:44 Sodium 145 Potassium 3.4 L Chloride 117 H Carbon Dioxide 17 L BUN 24 H D Creatinine 0.60 Glucose 105 H Calcium 8.7 - ABG Interpretation ABG results: PT/INR, D-dimer PT 11.1 Seconds (9.4-12.1) 08/25/16 18:15 Consult Discharge Plan - Plan Referrals: Taty Cruz MD [Primary Care Provider] - (Patient will follow up with ECF PCP) - Attending Attestation I examined this patient and my medical decision-making was reviewed with the ADOLESCENT SPECIALIST/PA/Advanced Practice Nurse/Resident Physician. I agree with the documented findings, disposition and treatment plan as described except to the extent set forth below. <Hakeem Rivera H - Last Filed: 08/27/16 15:02> Date of Encounter: 08/27/16 - Constitutional Vitals: Temp Pulse Resp BP Pulse Ox 98.2 F 85 16 156/93 95 08/27/16 11:24 08/27/16 11:24 08/27/16 11:24 08/27/16 11:24 08/27/16 11:24 Internal Medicine: Result - Labs CBC & Chem 7: 08/27/16 06:44 02/15/17 06:44 Labs: Short CBC 08/27/16 Range/Units 06:44 WBC 12.0 H (4.3-11.1) K/mcL Hgb 12.0 (11.5-15.4) g/dL Hct 38.0 (35.3-44.9) % Plt Count 350 (140-400) K/mcL BMP 08/27/16 06:44 Sodium 145 Potassium 3.4 L Chloride 117 H Carbon Dioxide 17 L BUN 24 H D Creatinine 0.60 Glucose 105 H Calcium 8.7 - ABG Interpretation ABG results: PT/INR, D-dimer PT 11.1 Seconds (9.4-12.1) 08/25/16 18:15 - Attending Attestation Acute metabolic encephalopathy secondary to sepsis from urinary tract infection with possible enterococcus Continue ampicillin IV Await culture Neurology recommended to continue Keppra and discontinue Dilantin May discontinue gentamicin and nitrofurantoin Start half normal saline with dextrose 5 with 10 mg of potassium at 100 mL per hour
--- NOTE | 2016-08-27 15:40 | EEG/EMG/Oth Biometrics Report ---
EEG Procedure Report Date of procedure: 08/27/16 EEG Procedure: Routine EEG Procedure Note: This is a report of a 21 channel bipolar and referential montage EEG. There is no resting of her rhythm at any time during the recording. The resting baseline rhythm consisted of mixed theta and delta frequencies in all leads bilaterally. This is poorly organized and poorly sustained. Hyperventilation was not performed during the recording. Occasional spindle-like activity is identified in the vertex area. Photic stimulation is performed and does not produce a driving response. The EKG reveals normal sinus rhythm at 72 beats per minute. Impressions: This EEG recording is abnormal and is reflective of a moderate to severe generalized encephalopathy. There is no evidence of epileptiform activity identified during the study. Comment: Etiologies of this interpretation might include toxic, metabolic, postictal, and degenerative. Please correlate clinically. The documentation in the history of HPI and plan were at least partially created by [employer] voice recognition technology by Dr. Medrano. Errors in grammar, wording or other phrases may exist. If errors are found after the documentation signed, they will be addressed individually in the addendum section of this document when appropriate.
--- NOTE | 2016-08-27 17:10 | Neurology Progress Note ---
Date of Encounter: 08/27/16 Time of Encounter: 17:08 Assessment and Plan (1) Altered mental status Current Visit: No Status: Acute Mental status has improved. However not certain whether not she is back to her normal baseline. We are likely dealing with metabolic encephalopathy secondary to urinary tract infection. Dilantin toxicity may have also been superimposed. Also acute renal failure. In any regard the EEG did not reveal evidence of seizure activity. However I recommend maintaining the Keppra at its current dosage of 500 mg twice a day. I will reevaluate her at your request. Qualifiers: Altered mental status type: unspecified Qualified Code(s): R41.82 - Altered mental status, unspecified Subjective Interval history: The chart was reviewed, the patient was seen and examined. Her mental status is improved today. She is awake, and she can follow simple commands and answer simple "questions. She does have obvious cognitive deficits. Her white blood cell count has declined today, her EEG was abnormal but did not show any evidence of seizure activity. She is moving all 4 extremities on command. I believe that the urinary tract infection was likely the culprit here. Objective - Constitutional Vitals: Temp Pulse Resp BP Pulse Ox 98.2 F 85 16 156/93 95 08/27/16 11:24 08/27/16 11:24 08/27/16 11:24 08/27/16 11:24 08/27/16 11:24 - Neurological Exam Motor Examination: Present: other (No focal or lateralizing deficits. Patient is able move all 4 extremities.) Mental Status Examination: Present: awake, oriented to person, drowsy (Patient is drowsy but she arouses and off to follow commands, she does make eye contact. She was confused however. His is likely secondary to her underlying Parkinson's and dementia.) Cranial nerve examination: Present: PERRL, EOMI Results - Laboratory Findings CBC and BMP: 08/27/16 06:44 08/27/16 06:44 Abnormal lab findings: Abnormal lab results WBC 12.0 K/mcL (4.3-11.1) H 08/27/16 06:44 Neutrophils # 19.1 K/mcL (1.6-8.9) H 08/26/16 06:15 Monocytes # 1.5 K/mcL (0.0-1.3) H 08/26/16 06:15 Potassium 3.4 mEq/L (3.5-4.5) L 08/27/16 06:44 Chloride 117 mEq/L (98-109) H 08/27/16 06:44 Carbon Dioxide 17 mEq/L (19-29) L 08/27/16 06:44 BUN 24 mg/dL (7-20) H D 08/27/16 06:44 BUN/Creatinine Ratio 40 (6-26) H 08/27/16 06:44 Glucose 105 mg/dL (70-99) H 08/27/16 06:44 POC Glucose 112 (58-89) H 08/27/16 11:29 Calculated Osmolality 304 (280-300) H 08/27/16 06:44 Lactic Acid 2.8 mmol/L (0.5-2.2) H 08/25/16 18:15 Phosphorus 2.2 mg/dL (2.3-4.7) L 08/26/16 06:15 Albumin 3.2 g/dL (3.5-5.0) L 08/25/16 18:15 Globulin 4.3 g/dL (2.4-3.5) H 08/25/16 18:15 Albumin/Globulin Ratio 0.7 (1.1-2.2) L 08/25/16 18:15 Urine Clarity Cloudy (Clear) A 08/25/16 20:50 Urine Ketones Trace mg/dL (Negative) H 08/25/16 20:50 Ur Leukocyte Esterase Large (Negative) H 08/25/16 20:50 Urine Microscopic RBC 3-5 per hpf (0-3) H 08/25/16 20:50 Urine Microscopic WBC TNTC per hpf (0-3) H 08/25/16 20:50 Urine Bacteria Many per hpf (None-Few) H 08/25/16 20:50 Ur Culture Indicated? YES (NO) A 08/25/16 20:50 Gentamicin Peak 2.2 mcg/mL (4.0-10.0) L 08/27/16 13:55 Phenytoin 26.0 mcg/mL (10-20) H 08/26/16 06:15 Consult Discharge Plan - Plan Referrals: Taty Cruz MD [Primary Care Provider] - (Patient will follow up with ECF PCP)
[2016-08-27] MEDS: D5% in 0.45% NACL w KCl 10 MEQ/1,000 ML MLS IVC SCH (18:16)
[2016-08-27] MEDS: Mirtazapine 15 MG TABLET PO SCH (21:57)
[2016-08-28 02:22] LABS: Hematocrit 39.2 % (35.3-44.9); Hemoglobin 12.5 g/dL (11.5-15.4); Mean Corpuscular HGB Conc 31.9 g/dL (31.6-35.5); Mean Corpuscular Hemoglobin 29.2 pg (28.0-33.3); Mean Corpuscular Volume 91.6 fL (83.0-100.0); Mean Platelet Volume 10.8 fL (9.4-12.4); Platelet Count 366 K/mcL (140-400); Red Blood Count 4.28 M/mcL (3.82-4.97); Red Cell Distribution Width 13.2 % (11.5-14.5)
[2016-08-28 02:44] LABS: BUN/Creatinine Ratio 24 (6-26); Blood Urea Nitrogen 14 mg/dL (7-20); Calcium 8.6 mg/dL (8.6-10.8); Carbon Dioxide 20 mEq/L (19-29); Chloride 112 mEq/L (98-109); Glucose 95 mg/dL (70-99); Osmolality,Calculated 294 (280-300); Potassium 3.2 mEq/L (3.5-4.5); Sodium 142 mEq/L (136-145); eGFR For African Americans > 60 (> 60); eGFR For Non-African Americans > 60 (> 60)
[2016-08-28] MEDS: *HR* Heparin 5,000 UNIT/ML VIAL SQ SCH ×2 (05:39→18:34)
[2016-08-28] MEDS: SODIUM CHLORIDE 0.9% IVPB SCH (06:51)
[2016-08-28] MEDS: AMPICILLIN IVPB SCH (06:51)
[2016-08-28] MEDS: Aspirin Enteric Coated 81 MG Tablet PO SCH (08:11)
[2016-08-28] MEDS: amLODIPine 5 MG TABLET PO SCH (08:12)
[2016-08-28] MEDS: Carbidopa/Levodopa 25/100 TABLET PO SCH ×3 (08:12→20:37)
--- NOTE | 2016-08-28 08:24 | Internal Med Progress Note ---
Date of Encounter: 08/28/16 Time of Encounter: 08:22 - Assessment and plan (1) UTI (urinary tract infection) Current Visit: Yes Status: Acute Assessment and plan: Acute metabolic encephalopathy secondary to sepsis from urinary tract infection growing VRE (Prior cultures for enterococcus of urinary were sensitive to ampicillin, the culture shows resistance to ampicillin) Levaquin, nitrofurantoin and Ampicillin were discontinued Gentamicin was discontinued at day 2, the patient was started this morning on Zyvox Qualifiers: Urinary tract infection type: acute cystitis Hematuria presence: without hematuria Qualified Code(s): N30.00 - Acute cystitis without hematuria (2) At risk for aspiration Current Visit: Yes Status: Acute Assessment and plan: Await recomendations by speech therapy NPO Will consider NGT feeds to provide nutrition altered mental status resolves (3) Hypokalemia Current Visit: Yes Status: Acute Assessment and plan: Replete as needed Will follow chemistry (4) Seizure Current Visit: Yes Status: Acute Assessment and plan: Tonic-clonic seizure reported by care home followed by periods of unresponsiveness Patient was seen by neurology , Keppra 500mg IV q 12 hr was recommended to be continued. Dilantin was discontinued. (5) Dementia Current Visit: No Status: Acute Qualifiers: Dementia type: associated with other underlying disease Dementia behavioral disturbance: without behavioral disturbance Qualified Code(s): F02.80 - Dementia in other diseases classified elsewhere without behavioral disturbance (6) Metabolic encephalopathy Current Visit: No Status: Acute (7) COPD (chronic obstructive pulmonary disease) Current Visit: No Status: Chronic Assessment and plan: Stable Qualifiers: COPD type: emphysema Emphysema type: centrilobular Qualified Code(s): J43.2 - Centrilobular emphysema - Time Spent With Patient Greater than 35 minutes - Subjective Interval history: Patient is more awake today, oriented in person only but able to mention that she is not having any shortness of breath, no chest pain, no abdominal pain. Review of systems was not able to be completed due to the patient's confusion. She appears to be in no distress - Constitutional Vitals: Temp Pulse Resp BP Pulse Ox 97.7 F 75 18 149/81 96 08/28/16 07:30 08/28/16 07:30 08/28/16 07:30 08/28/16 07:30 08/28/16 07:30 General appearance: Present: cachectic, A&O X 1, disheveled. Absent: answers questions appropriately - Head Head exam: Present: atraumatic, normocephalic - Eye Eye exam: Present: PERRL, conjuntiva pink, sclera anicteric Pupils: Present: PERRL - Neck Neck exam general surgery: Present: supple, trachea midline. Absent: lymphadenopathy - Respiratory Respiratory exam: Present: decreased breath sounds, CTAB. Absent: accessory muscle use, rales, rhonchi, wheezes - Cardiovascular Cardiovascular exam: Present: RRR, +S1, +S2. Absent: diastolic murmur, gallop, rubs, systolic murmur - GI/Abdominal GI/Abdominal exam: Present: distended, normal bowel sounds, soft, no peritoneal signs. Absent: tenderness - Extremities Exam Extremities exam: Present: warm, radial pulses palpable and symetrical. Absent : calf tenderness, cyanotic, pedal edema - Neurological Exam Neurological exam: Present: CN II-XII intact, no focal deficits. Absent: oriented X3, pronater drift, facial droop, speech deficit - Skin Skin exam: Present: dry, intact Internal Medicine: Result - Labs CBC & Chem 7: 08/28/16 01:58 08/28/16 01:58 Labs: Short CBC 08/28/16 Range/Units 01:58 WBC 12.8 H (4.3-11.1) K/mcL Hgb 12.5 (11.5-15.4) g/dL Hct 39.2 (35.3-44.9) % Plt Count 366 (140-400) K/mcL [facility] 08/28/16 01:58 Sodium 142 Potassium 3.2 L Chloride 112 H Carbon Dioxide 20 BUN 14 D Creatinine 0.59 Glucose 95 Calcium 8.6 - ABG Interpretation ABG results: PT/INR, D-dimer PT 11.1 Seconds (9.4-12.1) 08/25/16 18:15 Consult Discharge Plan - Plan Referrals: Taty Cruz MD [Primary Care Provider] - (Patient will follow up with ECF PCP)
[2016-08-28] MEDS: D5% in 0.45% NACL w KCl 10 MEQ/1,000 ML MLS IVC SCH ×2 (10:50)
[2016-08-29] MEDS: D5% in 0.45% NACL w KCl 10 MEQ/1,000 ML MLS IVC SCH (01:50)
[2016-08-29 05:21] VITALS: BP 147/53
[2016-08-29 06:20] LABS: Hematocrit 37.7 % (35.3-44.9); Hemoglobin 12.3 g/dL (11.5-15.4); Mean Corpuscular HGB Conc 32.6 g/dL (31.6-35.5); Mean Corpuscular Hemoglobin 29.6 pg (28.0-33.3); Mean Corpuscular Volume 90.8 fL (83.0-100.0); Mean Platelet Volume 10.9 fL (9.4-12.4); Platelet Count 354 K/mcL (140-400); Red Blood Count 4.15 M/mcL (3.82-4.97); Red Cell Distribution Width 13.2 % (11.5-14.5)
[2016-08-29] MEDS: *HR* Heparin 5,000 UNIT/ML VIAL SQ SCH (06:43)
[2016-08-29 07:39] LABS: BUN/Creatinine Ratio 16 (6-26); Blood Urea Nitrogen 10 mg/dL (7-20); Calcium 8.5 mg/dL (8.6-10.8); Carbon Dioxide 18 mEq/L (19-29); Chloride 106 mEq/L (98-109); Glucose 96 mg/dL (70-99); Osmolality,Calculated 277 (280-300); Potassium 3.8 mEq/L (3.5-4.5); eGFR For African Americans > 60 (> 60); eGFR For Non-African Americans > 60 (> 60)
[2016-08-29 07:47] LABS: Sodium 134 mEq/L (136-145)
[2016-08-29] MEDS: Aspirin Enteric Coated 81 MG Tablet PO SCH (08:20)
--- NOTE | 2016-08-29 08:20 | Discharge Summary ---
Date of Encounter: 08/29/16 Time of Encounter: 08:16 - Discharge Diagnosis (1) UTI (urinary tract infection) Priority: Primary Status: Acute Comments: Acute metabolic encephalopathy secondary to sepsis from urinary tract infection growing VRE (Prior cultures for enterococcus of urinary were sensitive to ampicillin, the culture shows resistance to ampicillin) Qualifiers: Urinary tract infection type: acute cystitis Hematuria presence: without hematuria Qualified Code(s): N30.00 - Acute cystitis without hematuria (2) At risk for aspiration Priority: Secondary Status: Acute (3) Hypokalemia Priority: Secondary Status: Acute (4) Seizure Priority: Secondary Status: Acute (5) Dementia Priority: Secondary Status: Acute Qualifiers: Dementia type: associated with other underlying disease Dementia behavioral disturbance: without behavioral disturbance Qualified Code(s): F02.80 - Dementia in other diseases classified elsewhere without behavioral disturbance (6) Metabolic encephalopathy Priority: Primary Status: Acute (7) COPD (chronic obstructive pulmonary disease) Priority: Secondary Status: Chronic Qualifiers: COPD type: emphysema Emphysema type: centrilobular Qualified Code(s): J43.2 - Centrilobular emphysema - Discharge Medications Prescriptions: Carbidopa/Levodopa [Carbidopa-Levo ER 25-100 Tab] 2 tab PO TID #90 tablet.er LevETIRAcetam [Keppra] 500 mg PO BID #60 tablet Linezolid [Zyvox] 600 mg PO BID #10 tablet Home Medications: Ascorbate Calcium [Vitamin C] 500 mg PO BID #60 tablet 12/15/15 [Rx] Cholecalciferol (Vitamin D3) [Dialyvite Vitamin D] 5,000 unit PO DAILY #30 capsule 12/15/15 [Rx] Cranberry 800 mg PO TIDWM #180 capsule 12/15/15 [Rx] Docusate [Colace] 100 mg PO BID capsule 12/15/15 [Rx] Aspirin [Lo-Dose Aspirin EC] 81 mg PO DAILY 01/22/16 [History] FluocinoNIDE 0.05% CRM [Lidex] 1 appl TP DAILY 01/22/16 [History] Multivit-Min/FA/Lycopen/Lutein [Centrum Silver Tablet] 1 tab PO DAILY 01/22/16 [ History] Pravastatin Sodium 10 mg PO DAILY 01/22/16 [History] Amlodipine Besylate 2.5 mg PO DAILY 02/22/16 [History] Salicylic Acid/Ceramide Cmb #1 [Salicylic Acid 6% Cream Kit] 1 each TP MOTH [History] Ferrous Gluconate 324 mg PO DAILY 08/26/16 [History] Hydrocortisone 1% CREAM [Cortaid] 1 appl TP TID PRN 08/26/16 [History] Ketoconazole Shampoo [Nizoral Shampoo] 1 appl TP DAILY PRN 08/26/16 [History] Magnesium Hydroxide [Milk of Magnesia] 30 ml PO DAILY PRN 08/26/16 [History] Megestrol Acetate [Megace] 10 ml PO DAILY 08/26/16 [History] Promethazine [Phenergan] 12.5 mg RC Q8H PRN 08/26/16 [History] Carbidopa/Levodopa [Carbidopa-Levo ER 25-100 Tab] 2 tab PO TID #90 tablet.er [Rx] LevETIRAcetam [Keppra] 500 mg PO BID #60 tablet 08/29/16 [Rx] Linezolid [Zyvox] 600 mg PO BID #10 tablet 08/29/16 [Rx] Allergies/Adverse Reactions: Allergies No Known Allergies Allergy (Verified 08/26/16 10:51) Date of admission: 08/26/16 04:20 Primary care physician: Ttay Cruz, Consults: 08/27/16 09:47 Consult to Interpret Exam [CONS] Routine Consulting Provider: Kwame Medrano Consult to Interpret Exam: Interpret EEG - Patient Status Disposition: Transfer SNF Condition: Fair Overall status at discharge: patient is progressing back to baseline - Discharge Instructions Follow Up With: Taty Cruz MD [Primary Care Provider] - ([facility]) Forms: ED Satisfaction Letter Additional Instructions: Follow with primary care physician within the next 7 days. Continue 5 more days of Zyvox. Continue pureed Diet with pudding thick liquids. Fall precautions . Continue Keppra at 500 mg twice a day, may follow with neurology within the next 2 weeks. - Diet and Activity Activity: increase activity as tolerated (He is wheelchair) Diet: other Hospital course: Ms. Campos is a 81 year old female with a past medical history of COPD not oxygen dependent, dementia, GERD, hypertension, osteoporosis, CKD2, syncope, who was transferred from [facility] with reported seizure and UTI. Staff at [facility] noted that the seizure occurred on Thursday and she had episodes of unresponsiveness the next couple days which led to the ER visit. Has history of dementia and Parkinson's and is a poor historian, daughter stated that her mother has had history of seizures over the past 3-4 months and was evaluated as an outpatient by neurology where an EEG was found to be negative 1.5 months ago. She was started on Keppra. There was one episode of fall, but she denies any injury to the head. Daughter also noted that patient has been having recurrent UTIs over the past year and a half and has required multiple antibiotic regimens. She stated that she gets altered mental status during these episodes and is unsure if the seizures are being mistaken for symptoms from her UTI's. The patient was loaded with Dilantin and neurology was consulted. An EEG was performed and did not show any abnormality. Neurology recommended to continue Keppra at a dose of 500 mg twice a day. Initially, the patient was kept nothing by mouth, then diet was restarted started after being evaluated by the speech pathology service. Pudding thick liquids with pureed diet was recommended (Prior urine cultures for enterococcus were sensitive to ampicillin, the new culture showed resistance to ampicillin, was VRE) Levaquin, nitrofurantoin and Ampicillin were discontinued. Gentamicin was discontinued at day 2, the patient was started on Zyvox. The patient has improved her mentation but is not quite at baseline yet. Her white blood cell count has decreased from 24.5 down to 14.3. Potassium was repleted and it was low at 3.2, today's 3.8. - Time Spent with Patient Total time spent providing and/or coordinating discharge services: Greater than 30 minutes (40 min) - Constitutional Vitals: Temp Pulse Resp BP Pulse Ox 98.4 F 64 20 147/53 94 L 08/29/16 04:58 08/29/16 04:58 08/29/16 04:58 08/29/16 04:58 08/29/16 04:58 General appearance: Present: cachectic, A&O X 1, underweight. Absent: answers questions appropriately - Head Head exam: Present: atraumatic, normocephalic - Eye Eye exam: Present: PERRL, conjuntiva pink, sclera anicteric Pupils: Present: PERRL - Neck Neck exam general surgery: Present: supple, trachea midline. Absent: lymphadenopathy - Respiratory Respiratory exam: Present: decreased breath sounds, CTAB. Absent: accessory muscle use, rales, rhonchi, wheezes - Cardiovascular Cardiovascular exam: Present: RRR, +S1, +S2. Absent: diastolic murmur, gallop, rubs, systolic murmur - GI/Abdominal GI/Abdominal exam: Present: distended, normal bowel sounds, soft, no peritoneal signs. Absent: tenderness - Extremities Exam Extremities exam: Present: warm, radial pulses palpable and symetrical. Absent : calf tenderness, cyanotic, pedal edema - Neurological Exam Neurological exam: Present: CN II-XII intact, no focal deficits. Absent: oriented X3, pronater drift, facial droop, speech deficit - Skin Skin exam: Present: dry, intact Additional comments: Generalized weakness
[2016-08-29] MEDS: Carbidopa/Levodopa 25/100 TABLET PO SCH (08:21)
[2016-08-29] MEDS: amLODIPine 5 MG TABLET PO SCH (08:27)
--- NOTE | 2016-08-29 08:29 | Physician Discharge Referral ---
ExtendedCare Referral Info Provider in Charge after Transfer: PCP Institutional Level of Care: Skilled - Diagnosis (1) UTI (urinary tract infection) Status: Acute (2) At risk for aspiration Status: Acute (3) Hypokalemia Status: Acute (4) Seizure Status: Acute (5) Dementia Status: Acute (6) Metabolic encephalopathy Status: Acute (7) COPD (chronic obstructive pulmonary disease) Status: Chronic - Transfer Medications Prescriptions: Carbidopa/Levodopa [Carbidopa-Levo ER 25-100 Tab] 2 tab PO TID #90 tablet.er LevETIRAcetam [Keppra] 500 mg PO BID #60 tablet Linezolid [Zyvox] 600 mg PO BID #10 tablet Home Medications: Ascorbate Calcium [Vitamin C] 500 mg PO BID #60 tablet 12/15/15 [Rx] Cholecalciferol (Vitamin D3) [Dialyvite Vitamin D] 5,000 unit PO DAILY #30 capsule 12/15/15 [Rx] Cranberry 800 mg PO TIDWM #180 capsule 12/15/15 [Rx] Docusate [Colace] 100 mg PO BID capsule 12/15/15 [Rx] Aspirin [Lo-Dose Aspirin EC] 81 mg PO DAILY 01/22/16 [History] FluocinoNIDE 0.05% CRM [Lidex] 1 appl TP DAILY 01/22/16 [History] Multivit-Min/FA/Lycopen/Lutein [Centrum Silver Tablet] 1 tab PO DAILY 01/22/16 [ History] Pravastatin Sodium 10 mg PO DAILY 01/22/16 [History] Amlodipine Besylate 2.5 mg PO DAILY 02/22/16 [History] Salicylic Acid/Ceramide Cmb #1 [Salicylic Acid 6% Cream Kit] 1 each TP MOTH [History] Ferrous Gluconate 324 mg PO DAILY 08/26/16 [History] Hydrocortisone 1% CREAM [Cortaid] 1 appl TP TID PRN 08/26/16 [History] Ketoconazole Shampoo [Nizoral Shampoo] 1 appl TP DAILY PRN 08/26/16 [History] Magnesium Hydroxide [Milk of Magnesia] 30 ml PO DAILY PRN 08/26/16 [History] Megestrol Acetate [Megace] 10 ml PO DAILY 08/26/16 [History] Promethazine [Phenergan] 12.5 mg RC Q8H PRN 08/26/16 [History] Carbidopa/Levodopa [Carbidopa-Levo ER 25-100 Tab] 2 tab PO TID #90 tablet.er [Rx] LevETIRAcetam [Keppra] 500 mg PO BID #60 tablet 08/29/16 [Rx] Linezolid [Zyvox] 600 mg PO BID #10 tablet 08/29/16 [Rx] Allergies/Adverse Reactions: Allergies No Known Allergies Allergy (Verified 08/26/16 10:51) - Respiratory Orders Smoking Cessation: Smoking cessation has been advised. For more information, call the [place] Tobacco Quit Line at 3-329-XXZQ-NOW. - Advance Directives Code Status: Full Code - Treatments List/Other: Follow with primary care physician within the next 7 days. Continue 5 more days of Zyvox. Continue pureed Diet with pudding thick liquids. Fall precautions . Continue Keppra at 500 mg twice a day, may follow with neurology within the next 2 weeks. - Diet Orders Pureed CERTIFICATION: I certify that the transfer of the above named patient to an Extended Care Facility is necessary for the continuing treatment of the diagnosis listed. The above information is true and accurate reflection of patient's current condition. Confidential - Redisclosure prohibited without a patient's written consent.
[2016-08-29] MEDS ORDERED: Linezolid 600 MG TABLET PO SCH (09:00)
== END 2016-08-29 12:27 | DRG 871 ==
LOC: EMEROO 18:10 → 2ANU 18:10 → SUATTDRO 08-26 04:20
PROVIDERS: ADMIT Internal Medicine Endocrinology, Diabetes & Metabolism; ATTEND Internal Medicine

== ENCOUNTER 2016-12-15 17:59 | Inpatient (IN) ==
--- NOTE | 2016-12-15 18:08 | Emergency Department Note ---
Addendum entered and electronically signed by Real Sen DO 12/15/16 19: 45: EKG: Heart rate 10 2 bpm. TN interval 142 ms. QTC 395 ms. Normal axis. Sinus tachycardia. No ST elevation or ST depression noted. EKG similar to EKG from 08/25/2016 with the exception of new tachycardia. Original Note: Disposition Clinical Impression: Hypoxia Sepsis Qualifiers: Sepsis type: sepsis due to unspecified organism Qualified Code(s): A41.9 - Sepsis, unspecified organism Pneumonia Qualifiers: Pneumonia type: due to unspecified organism Laterality: left Lung location: lower lobe of lung Qualified Code(s): J18.1 - Lobar pneumonia, unspecified organism Disposition: Admitted As Inpatient Condition: Undetermined Time of Disposition: 19:32 General Adult HPI - General Chief complaint: ED General Medical Stated complaint: Chills Time Seen by Provider: 12/15/16 18:05 Source: EMS Mode of arrival: EMS Limitations: altered mental status Nursing Notes Reviewed: Yes Vital Signs Reviewed: Yes - History of Present Illness HPI Narrative: 81-year-old female with extensive history of Lewy body dementia arrives from [facility] after feeling "chills"today. The patient is otherwise at her baseline. There was no noted fevers by EMS. In addition the patient was hypoxic upon arrival by EMS crew with a O2 saturation of 73% on room air. The immediately placed the patient on 2 L nasal cannula and she is at 92% at this time. The patient is laying on the stretcher shivering. In addition the patient is resting comfortably otherwise. The patient is unable to answer any questions due to baseline alteration of mentation associated with her Lewy body dementia. No other report was given from [facility] EMS stated that that was not the story that they were told initially. They gathered the patient's O2 saturation upon physical exam. Onset (ago): unknown Improves with: nothing Worsens with: nothing Treatments Prior to Arrival: none - Related Data Home Medications Medication Instructions Recorded Confirmed Aspirin [Lo-Dose Aspirin EC] 81 mg PO DAILY 01/22/16 12/15/16 FluocinoNIDE 0.05% CRM [Lidex] 1 appl TP DAILY 01/22/16 12/15/16 Multivit-Min/FA/Lycopen/Lutein 1 tab PO DAILY 01/22/16 12/15/16 [Centrum Silver Tablet] Pravastatin Sodium 10 mg PO DAILY 01/22/16 12/15/16 Amlodipine Besylate 2.5 mg PO DAILY 02/22/16 12/15/16 Salicylic Acid/Ceramide Cmb #1 1 each TP MOTH 08/25/16 12/15/16 [Salicylic Acid 6% Cream Kit] Hydrocortisone 1% CREAM [Cortaid] 1 appl TP TID PRN 08/26/16 12/15/16 Ketoconazole Shampoo [Nizoral 1 appl TP DAILY 08/26/16 12/15/16 Shampoo] Magnesium Hydroxide [Milk of 2,400 mg PO DAILY PRN 08/26/16 12/15/16 Magnesia] Promethazine [Phenergan] 12.5 mg RC Q8H PRN 08/26/16 12/15/16 Bisacodyl [Dulcolax] 10 mg RC DAILY PRN 12/15/16 12/15/16 Lactulose 20 gm PO BID 12/15/16 12/15/16 Mirtazapine 7.5 mg PO HS 12/15/16 12/15/16 Previous Rx's Medication Instructions Recorded Carbidopa/Levodopa [Carbidopa-Levo 2 tab PO TID #90 tablet.er 08/29/16 ER 25-100 Tab] levETIRAcetam [Keppra] 500 mg PO BID #60 tablet 08/29/16 Allergies Allergy/AdvReac Type Severity Reaction Status Date / Time No Known Allergies Allergy Verified 08/26/16 10:51 Limitations: ROS unobtainable due to patients medical condition Past Medical History - Past Medical History Attestation: Yes The following information was validated with the patient. 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 Absent: respiratory distress, wheezes - Cardiovascular Cardiovascular exam: Present: normal rhythm, tachycardia - Abdominal Exam Abdominal exam: Present: soft, Non-Tender. Absent: tenderness, distention, guarding, rebound, rigidity - Extremities Exam Extremities exam: Present: normal inspection, full ROM. Absent: tenderness, pedal edema - Back Exam Back exam: Present: normal inspection, full ROM. Absent: tenderness - Neurological Exam Neurological exam: Present: alert, oriented X3 - Psychiatric Psychiatric exam: Present: normal affect, normal mood - Skin Skin exam: Present: warm, dry, intact, normal color Course Vital Signs Temperature 97.6 F 12/15/16 18:02 Pulse Rate 106 12/15/16 18:02 Respiratory Rate 16 12/15/16 18:02 Blood Pressure 116/64 12/15/16 18:02 O2 Sat by Pulse Oximetry 80 12/15/16 18:02 Temperature 97.6 F 12/15/16 18:02 Pulse Rate 106 12/15/16 18:02 Respiratory Rate 16 12/15/16 18:02 Blood Pressure 116/64 12/15/16 18:02 O2 Sat by Pulse Oximetry 80 12/15/16 18:02 Oxygen Delivery Oxygen Delivery Room Air Medical Decision Making - MDM Narrative Medical decision making narrative: Findings suggestive of sepsis as well as concern for pneumonia. We will begin the patient on Rocephin as well as vancomycin. The patient will be admitted to the hospital. The patient is not in septic shock at this time. - Lab Data Lab results reviewed: Yes I reviewed the patient's lab results. Result diagrams: 12/15/16 18:42 12/15/16 18:42 Lab Results 12/15/16 12/15/16 12/15/16 Range/Units 18:42 18:42 18:42 WBC 22.8 H (4.3-11.1) K/mcL RBC 4.44 (3.82-4.97) M/mcL Hgb 12.4 (11.5-15.4) g/dL Hct 39.4 (35.3-44.9) % MCV 88.7 (83.0-100.0) fL MCH 27.9 L (28.0-33.3) pg MCHC 31.5 L (31.6-35.5) g/dL RDW 14.6 H (11.5-14.5) % Plt Count 296 (140-400) K/mcL MPV 10.8 (9.4-12.4) fL Immature Gran % 0.5 (0-4) % Seg Neutrophils % 90.5 % Lymphocytes % 4.4 % Monocytes % 4.1 % Eosinophils % 0.2 % Basophils % 0.3 % Neutrophils # 20.6 H (1.6-8.9) K/mcL Lymphocytes # 1.0 (0.6-4.6) K/mcL Monocytes # 0.9 (0.0-1.3) K/mcL Eosinophils # 0.1 (0.0-0.6) K/mcL Basophils # 0.1 (0.0-0.2) K/mcL Sodium 141 (136-145) mEq/L Potassium 4.5 (3.5-4.5) mEq/L Chloride 107 (98-109) mEq/L Carbon Dioxide 24 (19-29) mEq/L BUN 49 H (7-20) mg/dL Creatinine 0.86 (0.57-1.11) mg/dL Est GFR ( Amer) > 60 (> 60) Est GFR (Non-Af Amer) > 60 (> 60) BUN/Creatinine Ratio 57 H (6-26) Glucose 115 H (70-99) mg/dL Calculated Osmolality 306 H (280-300) Lactic Acid 1.8 (0.5-2.2) mmol/L Calcium 9.9 (8.6-10.8) mg/dL Total Bilirubin 0.5 (0.2-1.2) mg/dL AST 17 (5-34) Units/L ALT < 6 (0-55) Units/L Alkaline Phosphatase 105 (38-126) Units/L Serum Total Protein 7.6 (6.0-8.3) g/dL Albumin 3.3 L (3.5-5.0) g/dL Globulin 4.3 H (2.4-3.5) g/dL Albumin/Globulin Ratio 0.8 L (1.1-2.2) - Radiology Data Radiology results reviewed: Yes I reviewed the patient's radiology results. Critical Care Time Critical Care Time: Yes Total Critical Care Time: 35 Attestation: Total care time managing patient's pneumonia, hypoxia, and sepsis, 35 minutes. Attestation Statement - Attestation Attestation: Patient was seen with resident physician. I reviewed the history, physical, assessment and plan, and agree with the findings. I also personally evaluated this patient and had [id number] time with this patient. 81-year-old female presents from [facility] with chief complaint of chills. Patient provides no history secondary to dementia. History from EMS and senior living is that the patient had chills today and she has a history of urinary tract infections. Exam vital signs severe hypoxia. Lungs diminished breath sounds significantly in the left base. Remainder with some crackles diffusely throughout. Heart regular rhythm and rate. Abdomen soft no appreciable tenderness extremities no swelling. Neurologically patient is awake follows no commands has no verbal communication. ED course we will do workup for sepsis. We will also need to evaluate why the patient so severely hypoxic. She is placed on oxygen therapy. IV access was obtained. Chest x-ray demonstrates pneumonia bilaterally and worse on the left. This is consistent with her lab testing showed an elevated white blood cell count. Also with the patient's hypoxia. IV antibiotics were started. Hospitalist was notified and the patient was admitted to the hospital for further evaluation and treatment for pneumonia and sepsis. Patient did not meet criteria for severe sepsis. Critical care time was 35 minutes for this patient. I agree with the resident physician assessment and plan.
[2016-12-15 18:53] LABS: Basophils # 0.1 K/mcL (0.0-0.2); Basophils % 0.3 %; Eosinophils # 0.1 K/mcL (0.0-0.6); Eosinophils % 0.2 %; Hematocrit 39.4 % (35.3-44.9); Hemoglobin 12.4 g/dL (11.5-15.4); Immature Granulocytes % 0.5 % (0-4); Lymphocytes % 4.4 %; Mean Corpuscular HGB Conc 31.5 g/dL (31.6-35.5); Mean Corpuscular Hemoglobin 27.9 pg (28.0-33.3); Mean Corpuscular Volume 88.7 fL (83.0-100.0); Mean Platelet Volume 10.8 fL (9.4-12.4); Monocytes # 0.9 K/mcL (0.0-1.3); Monocytes % 4.1 %; Neutrophils # 20.6 K/mcL (1.6-8.9); Platelet Count 296 K/mcL (140-400); Red Blood Count 4.44 M/mcL (3.82-4.97); Red Cell Distribution Width 14.6 % (11.5-14.5); Segmented Neutrophils % 90.5 %
[2016-12-15 19:08] LABS: Albumin 3.3 g/dL (3.5-5.0); Albumin/Globulin Ratio 0.8 (1.1-2.2); Alkaline Phosphatase 105 Units/L (38-126); Aspartate Amino Transferase 17 Units/L (5-34); BUN/Creatinine Ratio 57 (6-26); Bilirubin,Total 0.5 mg/dL (0.2-1.2); Blood Urea Nitrogen 49 mg/dL (7-20); Calcium 9.9 mg/dL (8.6-10.8); Carbon Dioxide 24 mEq/L (19-29); Chloride 107 mEq/L (98-109); Globulin 4.3 g/dL (2.4-3.5); Glucose 115 mg/dL (70-99); Osmolality,Calculated 306 (280-300); Potassium 4.5 mEq/L (3.5-4.5); Sodium 141 mEq/L (136-145); Total Protein 7.6 g/dL (6.0-8.3); eGFR For African Americans > 60 (> 60); eGFR For Non-African Americans > 60 (> 60)
[2016-12-15 19:09] LABS: Alanine Aminotransferase < 6 Units/L (0-55)
[2016-12-15] MEDS ORDERED: Vancomycin 1,000 MG in D5% in Water 250 ML IVPB ONE (19:25)
[2016-12-15] MEDS ORDERED: 0.9 % Sodium Chloride 1,000 ML IVC ONE (19:27)
[2016-12-15 20:57] LABS: Bilirubin,Urine Negative (Negative); Blood,Urine Moderate (Negative); Clarity,Urine Turbid (Clear); Color,Urine Yellow (Yellow); Glucose,Urine (UA) Normal (Normal); Ketones,Urine Negative (Negative); Leukocyte Esterase,Urine Large (Negative); Nitrite,Urine Negative (Negative); Protein,Urine Trace mg/dL (Neg-Trace); Specific Gravity,Urine 1.018 (1.010-1.025); Urobilinogen,Urine Normal (Normal)
[2016-12-15 21:00] LABS: Bacteria,Urine Many per hpf (None-Few); RBC,Urine 15-30 per hpf (0-3); Squamous Epithelial Cell,Urine Many per lpf (None-Few); WBC,Urine TNTC per hpf (0-3)
[2016-12-15] MEDS ORDERED: Acetaminophen 325 MG TABLET PO PRN (21:24)
[2016-12-15] MEDS ORDERED: Naloxone 0.4 MG/ML INJ IVP PRN (21:24)
[2016-12-15] MEDS ORDERED: Bisacodyl 10 MG RECTAL SUPPOSITORY RC PRN (21:30)
[2016-12-15] MEDS ORDERED: Vancomycin 500 MG in D5% in Water 250 ML IVPB SCH (22:00)
[2016-12-15] MEDS: 0.9 % Sodium Chloride 1,000 ML IVC SCH (23:09)
--- NOTE | 2016-12-16 01:48 | Internal Med History&Physical ---
Date of Encounter: 12/15/16 Time of Encounter: 21:00 Assessment and Plan (1) Sepsis Current visit: Yes Status: Acute Patient has tachycardia, leukocytosis, urinary analysis shows UTI, chest x-ray shows pneumonia. Meet criteria of sepsis. - IV fluid has been giving the emergency room and will continue. - Lactate acid is not elevated. - Continue antibiotics Vanco and cefepime. - Closely monitor patient. - Follow up blood culture Patient is at high risk because of she is on vancomycin, need close monitoring. Qualifiers: Sepsis type: sepsis due to unspecified organism Qualified Code(s): A41.9 - Sepsis, unspecified organism (2) DVT prophylaxis Current visit: No Status: Acute Heparin subcutaneously (3) UTI (urinary tract infection) Current visit: No Status: Acute Patient is on antibiotic. Follow-up urine culture. Qualifiers: Urinary tract infection type: acute cystitis Hematuria presence: without hematuria Qualified Code(s): N30.00 - Acute cystitis without hematuria (4) Pneumonia Current visit: Yes Status: Acute Patient has chills, desaturation. Chest x-ray shows pneumonia. Consider healthcare associated pneumonia. - Treat Patient with Vanco and cefepime to cover healthcare associated pneumonia - Supportive treatment with oxygen. - Closely monitor patient. - Keep patient nothing by mouth now. Swallow evaluation in a.m. Qualifiers: Pneumonia type: due to unspecified organism Laterality: left Lung location: lower lobe of lung Qualified Code(s): J18.1 - Lobar pneumonia, unspecified organism (5) Dementia Current visit: No Status: Acute Chronic. Qualifiers: Dementia type: associated with other underlying disease Dementia behavioral disturbance: without behavioral disturbance Qualified Code(s): F02.80 - Dementia in other diseases classified elsewhere without behavioral disturbance (6) Parkinson disease Current visit: No Status: Chronic Continue home medications Levadopa Internal Medicine - H&P: HPI Chief complaint: Lethargic Admitted From: Long-term Nursing Facility Plans for Post Hospital Care: Transfer Long-Term Facility History of present illness: Ms. Campos is a 81 year old female transferred from [facility] for lethargic. Patient is demented. History is obtained from transfer form the patient's daughter Lissette Reza (Also POA). Patient has a history of repeatedly UTI. She was found lethargic, chills, and desaturation for 2 days in senior living. Patient was sent to emergency room, chest x-ray shows pneumonia. Urinalysis shows UTI. Patient was admitted as healthcare associated pneumonia and UTI. I discussed CODE STATUS with patient's daughter and POA. Patient is DNR DNI Past Med Surg Social Fam HX - Past Medical History Medical history: arthritis, COPD, dementia, GERD, hypertension, osteoporosis, syncope, other Psychiatric history: no psych history - Past Surgical History Surgical History: hysterectomy, ALCIDES/BSO, other - Social History Smoking Status: Former smoker Smokeless Tobacco Status: No Alcohol use: none Drug use: none - Family History Grandfather Hx Family Respiratory Disorders: Yes (Emphysema) Grandmother Hx Family Neurologic Disorders: Yes (CVA) Mother Hx Family Respiratory Disorders: Yes (Empyhsema) Hx Family Neurologic Disorders: Yes (CVA) Brother Hx Family Respiratory Disorders: Yes (empyhema) Internal Medicine - H&P: Meds Aspirin [Lo-Dose Aspirin EC] 81 mg PO DAILY 01/22/16 [History] FluocinoNIDE 0.05% CRM [Lidex] 1 appl TP DAILY 01/22/16 [History] Multivit-Min/FA/Lycopen/Lutein [Centrum Silver Tablet] 1 tab PO DAILY 01/22/16 [ History] Pravastatin Sodium 10 mg PO DAILY 01/22/16 [History] Amlodipine Besylate 2.5 mg PO DAILY 02/22/16 [History] Salicylic Acid/Ceramide Cmb #1 [Salicylic Acid 6% Cream Kit] 1 each TP MOTH [History] Hydrocortisone 1% CREAM [Cortaid] 1 appl TP TID PRN 08/26/16 [History] Ketoconazole Shampoo [Nizoral Shampoo] 1 appl TP DAILY 08/26/16 [History] Magnesium Hydroxide [Milk of Magnesia] 2,400 mg PO DAILY PRN 08/26/16 [History] Promethazine [Phenergan] 12.5 mg RC Q8H PRN 08/26/16 [History] Carbidopa/Levodopa [Carbidopa-Levo ER 25-100 Tab] 2 tab PO TID #90 tablet.er [Rx] levETIRAcetam [Keppra] 500 mg PO BID #60 tablet 02/17/17 [Rx] Bisacodyl [Dulcolax] 10 mg RC DAILY PRN 12/15/16 [History] Lactulose 20 gm PO BID 12/15/16 [History] Mirtazapine 7.5 mg PO HS 12/15/16 [History] Allergies No Known Allergies Allergy (Verified 08/26/16 10:51) All Systems PM: A 10-system review of systems was performed and is negative for pertinent findings except as documented above in the HPI. - Constitutional Vitals: Temp Pulse Resp BP Pulse Ox 98.2 F 108 15 133/94 97 12/15/16 21:44 12/15/16 21:44 12/15/16 21:44 12/15/16 21:44 12/15/16 23:31 General appearance: Present: cachectic, A&O X 0 - Head Head exam: Present: atraumatic, normocephalic - Eye Eye exam: Present: PERRL, conjuntiva pink, sclera anicteric Pupils: Present: PERRL - Neck Neck exam general surgery: Present: supple, trachea midline. Absent: lymphadenopathy - Respiratory Respiratory exam: Present: CTAB. Absent: accessory muscle use, rales, rhonchi, wheezes - Cardiovascular Cardiovascular exam: Present: RRR, +S1, +S2. Absent: diastolic murmur, gallop, rubs, systolic murmur - GI/Abdominal GI/Abdominal exam: Present: normal bowel sounds, soft, no peritoneal signs. Absent: distended, tenderness - Extremities Exam Extremities exam: Present: warm, radial pulses palpable and symetrical. Absent : calf tenderness, cyanotic, pedal edema - Neurological Exam Neurological exam: Present: CN II-XII intact, no focal deficits. Absent: pronater drift, facial droop, speech deficit - Skin Skin exam: Present: dry, intact Internal Med - H&P Results - Labs CBC & Chem 7: 12/15/16 18:42 12/15/16 18:42
[2016-12-16 06:00] LABS: Basophils # 0.1 K/mcL (0.0-0.2); Basophils % 0.2 %; Hemoglobin 10.4 g/dL (11.5-15.4); Immature Granulocytes % 0.6 % (0-4); Lymphocytes # 1.3 K/mcL (0.6-4.6); Lymphocytes % 5.4 %; Mean Corpuscular HGB Conc 31.5 g/dL (31.6-35.5); Mean Corpuscular Volume 88.9 fL (83.0-100.0); Mean Platelet Volume 11.2 fL (9.4-12.4); Monocytes # 1.1 K/mcL (0.0-1.3); Monocytes % 4.7 %; Neutrophils # 21.3 K/mcL (1.6-8.9); Platelet Count 253 K/mcL (140-400); Red Blood Count 3.71 M/mcL (3.82-4.97); Red Cell Distribution Width 14.7 % (11.5-14.5); Segmented Neutrophils % 89.1 %
[2016-12-16 06:15] LABS: BUN/Creatinine Ratio 48 (6-26); Blood Urea Nitrogen 38 mg/dL (7-20); Calcium 9.1 mg/dL (8.6-10.8); Carbon Dioxide 23 mEq/L (19-29); Chloride 109 mEq/L (98-109); Glucose 114 mg/dL (70-99); Magnesium 1.7 mg/dL (1.6-2.6); Osmolality,Calculated 300 (280-300); Potassium 4.2 mEq/L (3.5-4.5); Sodium 140 mEq/L (136-145); eGFR For African Americans > 60 (> 60); eGFR For Non-African Americans > 60 (> 60)
[2016-12-16 06:23] LABS: Platelet Estimate Normal (Normal)
[2016-12-16] MEDS: *HR* Heparin 5,000 UNIT/ML VIAL SQ SCH ×2 (06:30→17:38)
--- NOTE | 2016-12-16 08:46 | Internal Med Progress Note ---
<Murtaza Lara - Last Filed: 12/16/16 14:56> Date of Encounter: 12/16/16 Time of Encounter: 08:46 - Assessment and plan (1) Sepsis Current Visit: Yes Status: Acute Assessment and plan: Likely 2/2 PNA and UTI, still high WBCs, tachycardia improved, con't vanco and zosyn for now until cultures come back. Qualifiers: Qualified Code(s): A41.9 - Sepsis, unspecified organism (2) Pneumonia Current Visit: Yes Status: Acute Assessment and plan: Chest x-ray reviewed, b/l middle lobe PNA more so on left side, recent hospitalization 4 months ago and she's from residential, concern for MDR organisms, will cover with vanco and zosyn for now, also concern for aspiration in a setting of swallowing issue and baseline dementia, will wait for blood/ sputum cultures and urinary antigens. Qualifiers: Qualified Code(s): J18.9 - Pneumonia, unspecified organism (3) Dementia Current Visit: Yes Status: Acute Assessment and plan: She has this as baseline but worse now, con't sinemet, treat underlying infections. Qualifiers: Qualified Code(s): F03.90 - Unspecified dementia without behavioral disturbance; F02.80 - Dementia in other diseases classified elsewhere without behavioral disturbance (4) Change in mental status Current Visit: Yes Status: Acute Assessment and plan: Likely 2/2 ongoing underlying infection, will treat with IV abxs. Qualifiers: Qualified Code(s): R41.82 - Altered mental status, unspecified (5) UTI (urinary tract infection) Current Visit: Yes Status: Acute Assessment and plan: Hx of VRE twice, she got zyvox in the previous visit, will wait for culture for now. Qualifiers: Qualified Code(s): N39.0 - Urinary tract infection, site not specified (6) DVT prophylaxis Current Visit: Yes Status: Acute Assessment and plan: Heparin SQ BID. - Subjective Interval history: Pt seen and examined, A and Ox1, not answering questions appropriately or follow simple commands. - Constitutional Vitals: Temp Pulse Resp BP Pulse Ox 99.5 F 87 16 115/64 97 12/16/16 07:01 12/16/16 07:01 12/16/16 07:01 12/16/16 07:01 12/16/16 07:01 General appearance: Present: cachectic, A&O X 1, no acute distress. Absent: cooperative, answers questions appropriately - Respiratory Respiratory exam: Present: CTAB. Absent: accessory muscle use, chest wall tenderness, rales, rhonchi, wheezes - Cardiovascular Cardiovascular exam: Present: RRR, +S1, +S2. Absent: gallop, rubs, systolic murmur - GI/Abdominal GI/Abdominal exam: Present: normal bowel sounds, soft, no peritoneal signs. Absent: distended, firm, guarding, rebound, rigid, tenderness - Extremities Exam Extremities exam: Present: normal inspection, warm, radial pulses palpable and symetrical. Absent: calf tenderness, pedal edema, tenderness - Neurological Exam Neurological exam: Present: altered (unable to assess full neuro exams). Absent : alert, oriented X3 Internal Medicine: Result - Labs CBC & Chem 7: 12/16/16 04:36 12/16/16 04:36 Labs: Short CBC 12/16/16 Range/Units 04:36 WBC 23.9 H (4.3-11.1) K/mcL Hgb 10.4 L D (11.5-15.4) g/dL Hct 33.0 L (35.3-44.9) % Plt Count 253 (140-400) K/mcL Neutrophils # 21.3 H (1.6-8.9) K/mcL BMP 12/16/16 04:36 Sodium 140 Potassium 4.2 Chloride 109 Carbon Dioxide 23 BUN 38 H D Creatinine 0.79 Glucose 114 H Calcium 9.1 Consult Discharge Plan - Plan Referrals: Taty Cruz MD [Primary Care Provider] - 12/25/16 2:00 pm <Abdirizak Santana - Last Filed: 12/16/16 17:16> Date of Encounter: 12/16/16 - Assessment and plan (1) Acute respiratory failure with hypoxia Current Visit: Yes Status: Acute Assessment and plan: Due to pneumonia. On oxygen supplementation. (2) Pneumonia Current Visit: Yes Status: Suspected Assessment and plan: On IV abx and modified diet Qualifiers: Pneumonia type: aspiration pneumonia Laterality: bilateral Lung location : lower lobe of lung Qualified Code(s): J69.0 - Pneumonitis due to inhalation of food and vomit (3) Dysphagia Current Visit: Yes Status: Chronic Assessment and plan: Modified diet. Qualifiers: Dysphagia type: pharyngeal phase Qualified Code(s): R13.13 - Dysphagia, pharyngeal phase (4) Encephalopathy acute Current Visit: Yes Status: Acute Assessment and plan: Most likely related to acute infection. (5) Severe protein-calorie malnutrition Current Visit: Yes Status: Chronic (6) UTI (urinary tract infection) Current Visit: No Status: Acute Assessment and plan: On IV abx. Qualifiers: Urinary tract infection type: acute cystitis Hematuria presence: without hematuria Qualified Code(s): N30.00 - Acute cystitis without hematuria (7) Dementia Current Visit: Yes Status: Acute Qualifiers: Dementia type: Parkinson's disease Dementia behavioral disturbance: without behavioral disturbance Qualified Code(s): G20 - Parkinson's disease; F02.80 - Dementia in other diseases classified elsewhere without behavioral disturbance (8) Hypertension Current Visit: Yes Status: Chronic Assessment and plan: Monitoring. Qualifiers: Hypertension type: essential hypertension Qualified Code(s): I10 - Essential (primary) hypertension - Constitutional Vitals: Temp Pulse Resp BP Pulse Ox 98.6 F 95 19 125/66 90 12/16/16 16:13 12/16/16 16:13 12/16/16 16:13 12/16/16 16:13 12/16/16 16:13 Internal Medicine: Result - Labs CBC & Chem 7: 12/16/16 04:36 12/16/16 04:36 Labs: Short CBC 12/16/16 Range/Units 04:36 WBC 23.9 H (4.3-11.1) K/mcL Hgb 10.4 L D (11.5-15.4) g/dL Hct 33.0 L (35.3-44.9) % Plt Count 253 (140-400) K/mcL Neutrophils # 21.3 H (1.6-8.9) K/mcL BMP 12/16/16 04:36 Sodium 140 Potassium 4.2 Chloride 109 Carbon Dioxide 23 BUN 38 H D Creatinine 0.79 Glucose 114 H Calcium 9.1 - Attending Attestation I examined this patient and my medical decision-making was reviewed with the Resident Physician on 12/16/16. I agree with the documented findings, disposition and treatment plan as described except to the extent set forth below. Ms. Campos is currently admitted for acute encephalopathy, PNA, UTI and hypoxemia. She is high risk due to potential for worsening respiratory and infectious status. Ms. Campos is more alert this AM. She has been verbalizing some. No fever noted. Has required more oxygen this afternoon but breathes through mouth. No GI issues. Incontinent of urine. Exam Alert. Comfortable Heart reg Lungs with scattered rhonchi. No wheeze Abd soft No edema I/P 1. Hypoxic resp failure 2. PNA - ? aspiration 3. Acute encephalopathy 4. UTI 5. Dysphagia Further diagnoses and plan as above.
[2016-12-16] MEDS ORDERED: FluocinoNIDE 0.05% CRM 15 GM TUBE TP SCH (09:00)
[2016-12-16] MEDS ORDERED: Aspirin Enteric Coated 81 MG Tablet PO SCH (09:00)
[2016-12-16] MEDS: Piperacillin/Tazobactam 3.375 GM in D5% in Water (Mini-Bag+) 100 ML IVPB SCH ×2 (09:56→15:57)
[2016-12-16] MEDS: levETIRAcetam 250 MG TABLET PO SCH ×2 (10:00→20:33)
[2016-12-16] MEDS: Carbidopa/Levodopa 25/100 TABLET PO SCH ×3 (10:00→20:32)
[2016-12-16] MEDS: Lactulose Oral Soln 20 GM/30 ML UDC PO SCH ×2 (10:00→20:35)
[2016-12-16] MEDS: Aspirin 81 MG TAB.CHEW PO SCH (15:42)
[2016-12-16] MEDS: 0.9 % Sodium Chloride 1,000 ML IVC SCH (15:58)
[2016-12-16] MEDS: Mirtazapine 15 MG TABLET PO SCH (20:33)
[2016-12-16] MEDS ORDERED: Vancomycin 500 MG in D5% in Water (Mini-Bag+) 100 ML IVPB SCH (22:00)
[2016-12-16] MEDS ORDERED: Cefepime HCl 1,000 MG in D5% in Water (Mini-Bag+) 100 ML IVPB SCH ×2 (23:00)
--- NOTE | 2016-12-16 23:53 | Electrocardiograph Report ---
[place] [address] Test Date: 2016-12-15 Pat Name: Elodia Campos Department: 103 Room: 2NE20 Gender: F Land [employer]: : [id number] Requested By: Abdirizak Santana Order Number: [id number] Reading MD: Susan Calderon Measurements Intervals [place] Rate: 102 P: 64 [place]: 142 QRS: 53 QRSD: 86 T: 41 QT: 336 QTc: 395 Interpretive Statements SINUS TACHYCARDIA NONSPECIFIC ST \T\ T-WAVE ABNORMALITY ABNORMAL RHYTHM ECG Electronically Signed On 12-16-2016 23:52:21 EDT by Susan Calderon
[2016-12-17] MEDS: Piperacillin/Tazobactam 3.375 GM in D5% in Water (Mini-Bag+) 100 ML IVPB SCH ×3 (00:52→17:44)
[2016-12-17 04:36] LABS: Basophils # 0.1 K/mcL (0.0-0.2); Basophils % 0.4 %; Eosinophils # 0.2 K/mcL (0.0-0.6); Eosinophils % 1.7 %; Hematocrit 34.1 % (35.3-44.9); Hemoglobin 10.5 g/dL (11.5-15.4); Immature Granulocytes % 0.5 % (0-4); Lymphocytes # 1.5 K/mcL (0.6-4.6); Lymphocytes % 11.5 %; Mean Corpuscular HGB Conc 30.8 g/dL (31.6-35.5); Mean Corpuscular Hemoglobin 27.6 pg (28.0-33.3); Mean Corpuscular Volume 89.7 fL (83.0-100.0); Mean Platelet Volume 11.1 fL (9.4-12.4); Monocytes % 7.7 %; Neutrophils # 9.9 K/mcL (1.6-8.9); Platelet Count 214 K/mcL (140-400); Red Cell Distribution Width 14.7 % (11.5-14.5); Segmented Neutrophils % 78.2 %
[2016-12-17 04:58] LABS: BUN/Creatinine Ratio 36 (6-26); Blood Urea Nitrogen 29 mg/dL (7-20); Calcium 9.1 mg/dL (8.6-10.8); Carbon Dioxide 23 mEq/L (19-29); Chloride 112 mEq/L (98-109); Glucose 102 mg/dL (70-99); Osmolality,Calculated 302 (280-300); Sodium 143 mEq/L (136-145); eGFR For African Americans > 60 (> 60); eGFR For Non-African Americans > 60 (> 60)
[2016-12-17] MEDS: *HR* Heparin 5,000 UNIT/ML VIAL SQ SCH ×2 (06:38→17:44)
--- NOTE | 2016-12-17 08:17 | Internal Med Progress Note ---
<Murtaza Lara - Last Filed: 12/17/16 12:24> Date of Encounter: 12/17/16 Time of Encounter: 08:17 - Assessment and plan (1) Acute on chronic respiratory failure with hypoxia Current Visit: Yes Status: Acute Assessment and plan: Patient now requiring more oxygen support with 6-8 liter of nasal cannula, satting 90%, likely secondary to underlying pneumonia infection and possible COPD exacerbation, will obtain ABG today and will add DuoNeb and po steroid. (2) COPD exacerbation Current Visit: Yes Status: Acute Assessment and plan: Possibility due to underlying pneumonia infection, will treat with IV antibiotics, po steroid, DuoNeb and oxygen support. (3) Sepsis Current Visit: Yes Status: Acute Assessment and plan: Likely 2/2 PNA and UTI, leukocytosis significantly improved, continue zosyn for now until repeat urine culture comes back. Qualifiers: Qualified Code(s): A41.9 - Sepsis, unspecified organism (4) Pneumonia Current Visit: Yes Status: Acute Assessment and plan: Chest x-ray reviewed, b/l middle lobe PNA more so on left side, recent hospitalization 4 months ago and she's from skilled nursing, concern for aspiration in a setting of swallowing issue and baseline dementia, leukocytosis significantly improved after Zosyn was started yesterday, urinary antigen and blood culture came back negative, we will stop vancomycin today. Qualifiers: Qualified Code(s): J18.9 - Pneumonia, unspecified organism (5) Dementia Current Visit: Yes Status: Acute Assessment and plan: She has this as baseline but came in with change in mental status, somewhat improved today, con't sinemet, treat underlying infections. Qualifiers: Dementia type: Parkinson's disease Dementia behavioral disturbance: without behavioral disturbance Qualified Code(s): G20 - Parkinson's disease; F02.80 - Dementia in other diseases classified elsewhere without behavioral disturbance (6) Change in mental status Current Visit: Yes Status: Acute Assessment and plan: Likely 2/2 ongoing underlying infection, will treat with IV abx, mental status has improved today. 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 Qualifiers: Qualified Code(s): N39.0 - Urinary tract infection, site not specified (8) DVT prophylaxis Current Visit: Yes Status: Acute Assessment and plan: Heparin SQ BID. - Subjective Interval history: Pt seen and examined, A and Ox1, not answering questions appropriately or follow simple commands but clinically she shows slight improvement compared to yesterday. - Constitutional Vitals: Temp Pulse Resp BP Pulse Ox 97.5 F L 82 16 130/77 97 12/17/16 07:04 12/17/16 07:04 12/17/16 07:04 12/17/16 07:04 12/17/16 07:04 General appearance: Present: cachectic, A&O X 1, no acute distress. Absent: cooperative, answers questions appropriately - Respiratory Respiratory exam: Present: rhonchi (Diffusedly bilateral). Absent: rales, respiratory distress, stridor, wheezes - Cardiovascular Cardiovascular exam: Present: RRR, +S1, +S2. Absent: clicks, gallop, rubs, systolic murmur - GI/Abdominal GI/Abdominal exam: Present: normal bowel sounds, soft, no peritoneal signs. Absent: distended, firm, guarding, rebound, rigid, tenderness - Extremities Exam Extremities exam: Present: normal inspection, warm, radial pulses palpable and symetrical. Absent: calf tenderness, pedal edema, tenderness - Neurological Exam Neurological exam: Present: altered. Absent: alert, oriented X3 Additional comments: Limited full neurological exam due to change in mental status Internal Medicine: Result - Labs CBC & Chem 7: 12/17/16 04:04 12/17/16 04:04 Labs: Short CBC 12/17/16 Range/Units 04:04 WBC 12.7 H (4.3-11.1) K/mcL Hgb 10.5 L (11.5-15.4) g/dL Hct 34.1 L (35.3-44.9) % Plt Count 214 (140-400) K/mcL Neutrophils # 9.9 H (1.6-8.9) K/mcL BMP 12/17/16 04:04 Sodium 143 Potassium 4.0 Chloride 112 H Carbon Dioxide 23 BUN 29 H Creatinine 0.81 Glucose 102 H Calcium 9.1 Consult Discharge Plan - Plan Referrals: Taty Cruz MD [Primary Care Provider] - 12/25/16 2:00 pm <Abdirizak Santana - Last Filed: 12/17/16 19:07> Date of Encounter: 12/17/16 - Assessment and plan (1) Acute respiratory failure with hypoxia Current Visit: Yes Status: Acute (2) Pneumonia Current Visit: Yes Status: Suspected Qualifiers: Pneumonia type: aspiration pneumonia Laterality: bilateral Lung location : lower lobe of lung Qualified Code(s): J69.0 - Pneumonitis due to inhalation of food and vomit (3) Dysphagia Current Visit: Yes Status: Chronic Qualifiers: Dysphagia type: pharyngeal phase Qualified Code(s): R13.13 - Dysphagia, pharyngeal phase (4) Encephalopathy acute Current Visit: Yes Status: Acute (5) Severe protein-calorie malnutrition Current Visit: Yes Status: Chronic (6) UTI (urinary tract infection) Current Visit: No Status: Acute Qualifiers: Urinary tract infection type: acute cystitis Hematuria presence: without hematuria Qualified Code(s): N30.00 - Acute cystitis without hematuria (7) Dementia Current Visit: Yes Status: Acute Qualifiers: Dementia type: Parkinson's disease Dementia behavioral disturbance: without behavioral disturbance Qualified Code(s): G20 - Parkinson's disease; F02.80 - Dementia in other diseases classified elsewhere without behavioral disturbance (8) Hypertension Current Visit: Yes Status: Chronic Qualifiers: Hypertension type: essential hypertension Qualified Code(s): I10 - Essential (primary) hypertension - Constitutional Vitals: Temp Pulse Resp BP Pulse Ox 98.3 F 73 20 112/67 97 12/17/16 15:13 12/17/16 15:13 12/17/16 15:36 12/17/16 15:13 12/17/16 15:36 Internal Medicine: Result - Labs CBC & Chem 7: 12/17/16 04:04 12/17/16 04:04 Labs: Short CBC 12/17/16 Range/Units 04:04 WBC 12.7 H (4.3-11.1) K/mcL Hgb 10.5 L (11.5-15.4) g/dL Hct 34.1 L (35.3-44.9) % Plt Count 214 (140-400) K/mcL Neutrophils # 9.9 H (1.6-8.9) K/mcL BMP 12/17/16 04:04 Sodium 143 Potassium 4.0 Chloride 112 H Carbon Dioxide 23 BUN 29 H Creatinine 0.81 Glucose 102 H Calcium 9.1 - ABG Interpretation ABG results: ABG ABG pH 7.42 pH Units (7.32-7.45) 12/17/16 17:15 ABG pCO2 37 mmHg (35-45) 12/17/16 17:15 ABG pO2 121 mmHg (85-104) H 12/17/16 17:15 ABG O2 Saturation 99 % (95-98) H 12/17/16 17:15 - Impressions Impressions Chest X-Ray 12/17/16 08:00 IMPRESSION: 1. COPD with stable asymmetric patchy opacities, more prominent on the left, suggesting pneumonia. 2. Mild left and probable trace right pleural effusions. D/ / 12/17/2016 09:15:43 Rashawn Bustillo [facility] / [facility] Interpreting Provider: Rashawn Bustillo MD - Attending Attestation I examined this patient and my medical decision-making was reviewed with the Resident Physician on 12/17/16. I agree with the documented findings, disposition and treatment plan as described except to the extent set forth below. Ms. Campos is currently hospitalized for acute encephalopathy and pneumonia. She is moderate to high risk due to potential for worsening respiratory status. Ms. Campos is doing OK. No fever or chills. No GI symptoms. CXR showed pneumonia and abx changed. Exam Alert. Comfortable Heart reg No wheeze. Rhonchi heard. I/P 1. Pneumonia 2. Encephalopathy Further diagnoses and plan as above.
[2016-12-17] MEDS: levETIRAcetam 250 MG TABLET PO SCH ×2 (08:39→21:07)
[2016-12-17] MEDS: Carbidopa/Levodopa 25/100 TABLET PO SCH ×3 (08:39→21:08)
[2016-12-17] MEDS: Aspirin 81 MG TAB.CHEW PO SCH (08:39)
[2016-12-17] MEDS: Lactulose Oral Soln 20 GM/30 ML UDC PO SCH ×2 (08:39→21:08)
[2016-12-17] MEDS: predniSONE 20 MG TABLET PO SCH (11:34)
[2016-12-17] MEDS ORDERED: Aminoglycoside Consult 1 EACH MC ONE (12:00)
[2016-12-17] MEDS: Ipratropium/Albuterol Neb 3 ML IH SCH ×3 (15:15→20:39)
[2016-12-17 17:25] LABS: ABG Base Excess -0.3 mEq/L (-2.0 to 3.0); ABG Oxygen Saturation 99 % (95-98); ABG PCO2 37 mmHg (35-45); ABG PH 7.42 pH Units (7.32-7.45); ABG PO2 121 mmHg (85-104); ABG TCO2 25.1 mEq/L (20-26)
[2016-12-17] MEDS: Mirtazapine 15 MG TABLET PO SCH (21:08)
[2016-12-18] MEDS: Piperacillin/Tazobactam 3.375 GM in D5% in Water (Mini-Bag+) 100 ML IVPB SCH ×4 (01:47→23:27)
[2016-12-18] MEDS: Ipratropium/Albuterol Neb 3 ML IH SCH ×4 (03:22→23:15)
[2016-12-18 05:10] LABS: Basophils % 0.2 %; Eosinophils % 0.3 %; Hematocrit 30.5 % (35.3-44.9); Hemoglobin 9.5 g/dL (11.5-15.4); Immature Granulocytes % 0.3 % (0-4); Lymphocytes # 1.4 K/mcL (0.6-4.6); Lymphocytes % 15.1 %; Mean Corpuscular HGB Conc 31.1 g/dL (31.6-35.5); Mean Corpuscular Hemoglobin 27.9 pg (28.0-33.3); Mean Corpuscular Volume 89.7 fL (83.0-100.0); Mean Platelet Volume 10.7 fL (9.4-12.4); Monocytes # 0.5 K/mcL (0.0-1.3); Monocytes % 5.8 %; Neutrophils # 7.2 K/mcL (1.6-8.9); Platelet Count 223 K/mcL (140-400); Red Cell Distribution Width 14.6 % (11.5-14.5); Segmented Neutrophils % 78.3 %
[2016-12-18] MEDS: *HR* Heparin 5,000 UNIT/ML VIAL SQ SCH ×2 (06:49→17:16)
--- NOTE | 2016-12-18 08:35 | Internal Med Progress Note ---
<Murtaza Lara - Last Filed: 12/18/16 13:43> Date of Encounter: 12/18/16 Time of Encounter: 08:35 - Assessment and plan (1) Acute on chronic respiratory failure with hypoxia Current Visit: Yes Status: Acute Assessment and plan: Able to decrease oxygen down to 3L NC, satting 90%, likely secondary to underlying pneumonia infection and possible COPD exacerbation, con't abx, duoNeb and po steroid. (2) COPD exacerbation Current Visit: Yes Status: Acute Assessment and plan: Possibility due to underlying pneumonia infection, will treat with IV antibiotics, po steroid, DuoNeb and oxygen support. (3) Sepsis Current Visit: Yes Status: Acute Assessment and plan: Resolved, likely 2/2 PNA and UTI, continue zosyn for now until repeat urine culture comes back. Qualifiers: Qualified Code(s): A41.9 - Sepsis, unspecified organism (4) Pneumonia Current Visit: Yes Status: Acute Assessment and plan: Chest x-ray reviewed, b/l middle lobe PNA more so on left side, recent hospitalization 4 months ago and she's from [facility], concern for aspiration in a setting of swallowing issue and baseline dementia, leukocytosis significantly improved after Zosyn was started, urinary antigen and blood culture came back negative, vanco stopped. Qualifiers: Qualified Code(s): J18.9 - Pneumonia, unspecified organism (5) Dementia Current Visit: Yes Status: Acute Assessment and plan: Likely at her baseline now, con't sinemet, treat underlying infections. Qualifiers: Dementia type: Parkinson's disease Dementia behavioral disturbance: without behavioral disturbance Qualified Code(s): G20 - Parkinson's disease; F02.80 - Dementia in other diseases classified elsewhere without behavioral disturbance (6) UTI (urinary tract infection) Current Visit: Yes Status: Acute Assessment and plan: Hx of VRE twice, she got zyvox in the previous visit, will wait for culture for now. Qualifiers: Qualified Code(s): N39.0 - Urinary tract infection, site not specified (7) DVT prophylaxis Current Visit: Yes Status: Acute Assessment and plan: Heparin SQ BID. - Subjective Interval history: Pt seen and examined, A and Ox1, not answering questions appropriately or follow simple commands, likely this is her baseline dementia, but clinically she shows slight improvement compared to yesterday. - Constitutional Vitals: Temp Pulse Resp BP Pulse Ox 97.4 F L 75 18 133/81 98 12/18/16 06:50 12/18/16 06:50 12/18/16 06:50 12/18/16 06:50 12/18/16 06:50 General appearance: Present: cachectic, A&O X 1, no acute distress. Absent: cooperative, answers questions appropriately - Respiratory Respiratory exam: Present: rhonchi (at base diffuse b/l). Absent: chest wall tenderness, decreased breath sounds, rales, wheezes - Cardiovascular Cardiovascular exam: Present: RRR, +S1, +S2. Absent: clicks, gallop, rubs, systolic murmur - GI/Abdominal GI/Abdominal exam: Present: normal bowel sounds, soft. Absent: distended, firm , guarding, rebound, rigid, tenderness - Extremities Exam Extremities exam: Present: warm, radial pulses palpable and symetrical. Absent : calf tenderness, pedal edema, tenderness - Neurological Exam Neurological exam: Present: altered. Absent: alert, oriented X3 Internal Medicine: Result - Labs CBC & Chem 7: 12/18/16 04:56 12/17/16 04:04 Labs: Short CBC 12/18/16 Range/Units 04:56 WBC 9.2 (4.3-11.1) K/mcL Hgb 9.5 L (11.5-15.4) g/dL Hct 30.5 L (35.3-44.9) % Plt Count 223 (140-400) K/mcL Neutrophils # 7.2 (1.6-8.9) K/mcL - ABG Interpretation ABG results: ABG ABG pH 7.42 pH Units (7.32-7.45) 12/17/16 17:15 ABG pCO2 37 mmHg (35-45) 12/17/16 17:15 ABG pO2 121 mmHg (85-104) H 12/17/16 17:15 ABG O2 Saturation 99 % (95-98) H 12/17/16 17:15 - Impressions Impressions Chest X-Ray 12/17/16 08:00 IMPRESSION: 1. COPD with stable asymmetric patchy opacities, more prominent on the left, suggesting pneumonia. 2. Mild left and probable trace right pleural effusions. D/ / 12/17/2016 09:15:43 Rashawn Bustillo MD / earnolydia Interpreting Provider: Rashawn Bustillo MD Consult Discharge Plan - Plan Referrals: Taty Cruz MD [Primary Care Provider] - 12/25/16 2:00 pm <Abdirizak Santana - Last Filed: 12/18/16 18:16> Date of Encounter: 12/18/16 - Assessment and plan (1) Acute respiratory failure with hypoxia Current Visit: Yes Status: Acute (2) Pneumonia Current Visit: Yes Status: Suspected Qualifiers: Pneumonia type: aspiration pneumonia Laterality: bilateral Lung location : lower lobe of lung Qualified Code(s): J69.0 - Pneumonitis due to inhalation of food and vomit (3) Dysphagia Current Visit: Yes Status: Chronic Qualifiers: Dysphagia type: pharyngeal phase Qualified Code(s): R13.13 - Dysphagia, pharyngeal phase (4) Encephalopathy acute Current Visit: Yes Status: Acute (5) Severe protein-calorie malnutrition Current Visit: Yes Status: Chronic (6) UTI (urinary tract infection) Current Visit: No Status: Acute Qualifiers: Urinary tract infection type: acute cystitis Hematuria presence: without hematuria Qualified Code(s): N30.00 - Acute cystitis without hematuria (7) Dementia Current Visit: Yes Status: Acute Qualifiers: Dementia type: Parkinson's disease Dementia behavioral disturbance: without behavioral disturbance Qualified Code(s): G20 - Parkinson's disease; F02.80 - Dementia in other diseases classified elsewhere without behavioral disturbance (8) Hypertension Current Visit: Yes Status: Chronic Qualifiers: Hypertension type: essential hypertension Qualified Code(s): I10 - Essential (primary) hypertension - Constitutional Vitals: Temp Pulse Resp BP Pulse Ox 97.3 F L 95 16 115/63 93 12/18/16 16:44 12/18/16 16:44 12/18/16 16:27 12/18/16 16:44 12/18/16 16:27 Internal Medicine: Result - Labs CBC & Chem 7: 12/18/16 04:56 12/17/16 04:04 Labs: Short CBC 12/18/16 Range/Units 04:56 WBC 9.2 (4.3-11.1) K/mcL Hgb 9.5 L (11.5-15.4) g/dL Hct 30.5 L (35.3-44.9) % Plt Count 223 (140-400) K/mcL Neutrophils # 7.2 (1.6-8.9) K/mcL - ABG Interpretation ABG results: ABG ABG pH 7.42 pH Units (7.32-7.45) 12/17/16 17:15 ABG pCO2 37 mmHg (35-45) 12/17/16 17:15 ABG pO2 121 mmHg (85-104) H 12/17/16 17:15 ABG O2 Saturation 99 % (95-98) H 12/17/16 17:15 - Attending Attestation I examined this patient and my medical decision-making was reviewed with the Resident Physician on 12/18/16. I agree with the documented findings, disposition and treatment plan as described except to the extent set forth below. Ms. Campos is currently admitted for acute encephalopathy related to pneumonia and probable UTI. She is moderate to high risk due to potential for worsening respiratory status. Ms Campos is alert. She does not appear to be in distress. Oxygen has been weaning down. No fever or GI issues. Exam Alert. Comfortable Heart reg No wheeze I/P 1. PNA 2. Encephalopathy Further diagnoses and plan as above.
[2016-12-18] MEDS: predniSONE 20 MG TABLET PO SCH (09:39)
[2016-12-18] MEDS: Lactulose Oral Soln 20 GM/30 ML UDC PO SCH ×2 (09:39→21:37)
[2016-12-18] MEDS: Aspirin 81 MG TAB.CHEW PO SCH (09:39)
[2016-12-18] MEDS: levETIRAcetam 250 MG TABLET PO SCH ×2 (09:39→21:39)
[2016-12-18] MEDS: Carbidopa/Levodopa 25/100 TABLET PO SCH ×3 (09:39→21:38)
[2016-12-18] MEDS: Mirtazapine 15 MG TABLET PO SCH (21:39)
[2016-12-19] MEDS: Ipratropium/Albuterol Neb 3 ML IH SCH ×3 (04:17→16:37)
[2016-12-19 04:50] LABS: Basophils % 0.1 %; Eosinophils % 0.1 %; Hemoglobin 9.4 g/dL (11.5-15.4); Immature Granulocytes % 0.5 % (0-4); Lymphocytes # 1.4 K/mcL (0.6-4.6); Mean Corpuscular HGB Conc 31.3 g/dL (31.6-35.5); Mean Corpuscular Hemoglobin 27.9 pg (28.0-33.3); Mean Platelet Volume 10.9 fL (9.4-12.4); Monocytes # 0.6 K/mcL (0.0-1.3); Monocytes % 6.5 %; Neutrophils # 6.7 K/mcL (1.6-8.9); Platelet Count 240 K/mcL (140-400); Red Blood Count 3.37 M/mcL (3.82-4.97); Red Cell Distribution Width 14.5 % (11.5-14.5); Segmented Neutrophils % 76.8 %
[2016-12-19 05:21] LABS: BUN/Creatinine Ratio 49 (6-26); Blood Urea Nitrogen 37 mg/dL (7-20); Calcium 9.2 mg/dL (8.6-10.8); Carbon Dioxide 23 mEq/L (19-29); Chloride 114 mEq/L (98-109); Glucose 100 mg/dL (70-99); Osmolality,Calculated 311 (280-300); Potassium 3.7 mEq/L (3.5-4.5); Sodium 146 mEq/L (136-145); eGFR For African Americans > 60 (> 60); eGFR For Non-African Americans > 60 (> 60)
[2016-12-19] MEDS: *HR* Heparin 5,000 UNIT/ML VIAL SQ SCH (05:46)
[2016-12-19] MEDS ORDERED: Fluconazole 100 MG TABLET PO SCH (09:00)
[2016-12-19] MEDS: Lactulose Oral Soln 20 GM/30 ML UDC PO SCH (09:36)
[2016-12-19] MEDS: Piperacillin/Tazobactam 3.375 GM in D5% in Water (Mini-Bag+) 100 ML IVPB SCH (09:36)
[2016-12-19] MEDS: Carbidopa/Levodopa 25/100 TABLET PO SCH (09:37)
[2016-12-19] MEDS: predniSONE 20 MG TABLET PO SCH (09:37)
[2016-12-19] MEDS: levETIRAcetam 250 MG TABLET PO SCH (09:37)
[2016-12-19] MEDS: Aspirin 81 MG TAB.CHEW PO SCH (09:37)
--- NOTE | 2016-12-19 14:12 | Discharge Summary ---
<Murtaza Lara - Last Filed: 12/19/16 14:02> Date of Encounter: 12/19/16 Time of Encounter: 14:03 - Discharge Diagnosis (1) Acute on chronic respiratory failure with hypoxia Priority: Primary Status: Acute (2) COPD exacerbation Priority: Primary Status: Acute (3) Sepsis Priority: Primary Status: Acute Qualifiers: Qualified Code(s): A41.9 - Sepsis, unspecified organism (4) Pneumonia Priority: Primary Status: Acute Qualifiers: Qualified Code(s): J18.9 - Pneumonia, unspecified organism (5) Dementia Priority: Secondary Status: Acute Qualifiers: Dementia type: Parkinson's disease Dementia behavioral disturbance: without behavioral disturbance Qualified Code(s): G20 - Parkinson's disease; F02.80 - Dementia in other diseases classified elsewhere without behavioral disturbance (6) UTI (urinary tract infection) Priority: Primary Status: Acute Qualifiers: Qualified Code(s): N39.0 - Urinary tract infection, site not specified (7) Altered mental status Priority: Primary Status: Acute Qualifiers: Altered mental status type: unspecified Qualified Code(s): R41.82 - Altered mental status, unspecified (8) DVT prophylaxis Priority: Secondary Status: Acute - Discharge Medications Prescriptions: Amoxicillin/Clavulanate [Augmentin] 875 mg PO BIDWM 5 Days Fluconazole [Diflucan] 200 mg PO DAILY 13 Days predniSONE [PredniSONE] 10 mg PO DAILY #25 tablet Home Medications: Aspirin [Lo-Dose Aspirin EC] 81 mg PO DAILY 01/22/16 [History] FluocinoNIDE 0.05% CRM [Lidex] 1 appl TP DAILY 01/22/16 [History] Multivit-Min/FA/Lycopen/Lutein [Centrum Silver Tablet] 1 tab PO DAILY 01/22/16 [ History] Pravastatin Sodium 10 mg PO DAILY 01/22/16 [History] Amlodipine Besylate 2.5 mg PO DAILY 02/22/16 [History] Salicylic Acid/Ceramide Cmb #1 [Salicylic Acid 6% Cream Kit] 1 each TP MOTH [History] Hydrocortisone 1% CREAM [Cortaid] 1 appl TP TID PRN 08/26/16 [History] Ketoconazole Shampoo [Nizoral Shampoo] 1 appl TP DAILY 08/26/16 [History] Magnesium Hydroxide [Milk of Magnesia] 2,400 mg PO DAILY PRN 08/26/16 [History] Promethazine [Phenergan] 12.5 mg RC Q8H PRN 08/26/16 [History] Carbidopa/Levodopa [Carbidopa-Levo ER 25-100 Tab] 2 tab PO TID #90 tablet.er [Rx] levETIRAcetam [Keppra] 500 mg PO BID #60 tablet 08/29/16 [Rx] Bisacodyl [Dulcolax] 10 mg RC DAILY PRN 12/15/16 [History] Lactulose 20 gm PO BID 12/15/16 [History] Mirtazapine 7.5 mg PO HS 12/15/16 [History] Amoxicillin/Clavulanate [Augmentin] 875 mg PO BIDWM 5 Days 12/19/16 [Rx] Fluconazole [Diflucan] 200 mg PO DAILY 13 Days 12/19/16 [Rx] predniSONE [PredniSONE] 10 mg PO DAILY #25 tablet 12/19/16 [Rx] Allergies/Adverse Reactions: Allergies No Known Allergies Allergy (Verified 08/26/16 10:51) Date of admission: 12/15/16 21:24 Primary care physician: Taty Cruz, Consults: 12/15/16 21:29 Consult to Speech Therapy [CONS] Routine Comment: Evaluate, develop and implement POC Reason for Consult: pneumonia, dementia, need swallow evaluation Call Completed: No 12/16/16 14:58 Consult to Nutrition [CONS] Routine Comment: Consulting Provider: NUTRITION Reason for Dietary Consult: PO Supplementation Discharging clinician: Murtaza Lara Anticipated date of discharge: 12/19/16 - Patient Status Disposition: Transfer SNF Condition: Fair Functional capacity at discharge: wheelchair bound (fall precaution) Overall status at discharge: patient is progressing back to baseline - Discharge Instructions Follow Up With: Taty Cruz MD [Primary Care Provider] - 12/25/16 2:00 pm (F/u for hospital d/c f/u and for PNA and UTI, COPD.) - Diet and Activity Activity: resume usual activities as tolerated, wear oxygen at all times Diet: other (mechanicalll altered diet, encourage more water intake, aspiration precaution, nectar thickended diet and ensure plus TID, assist with feeding) Hospital course: Ms. Campos is a 81 year old female with a history of COPD, baseline dementia, hypertension, and GERD who was transferred from long-term for change in mental status from her baseline dementia and she was lethargic. Patient has a history of recurrent UTI and she had a VRE UTI twice in the past, recently she was in this hospital 4 months ago. At long-term she was lethargic, having chills and had oxygen desaturation. Chest x-ray in the ER showed bilateral pneumonia and the UA showed picture of UTI. Patient was admitted to the hospital for pneumonia and UTI and during his hospital stay patient received the IV antibiotics of vancomycin and Zosyn. Patient's mental status gradually improved and on the day of discharge her mental status went back to her baseline. Because of extensive smoking history and history of COPD patient was also put on by mouth steroid for possible underlying COPD exacerbation and patient was also getting DuoNeb [id number]. Blood culture came back negative and urinary Legionella/pneumococcal antigens were negative, for possible aspiration pneumonia Zosyn was selected, a urine culture came back positive for yeast infection therefore Diflucan was added. Today patient will be discharged to long-term in stable condition with steroid po taper, and by mouth antibiotic of Augmentin for possible aspiration pneumonia and Diflucan for yeast UTI. - Time Spent with Patient Total time spent providing and/or coordinating discharge services: - Constitutional Vitals: Temp Pulse Resp BP Pulse Ox 96.9 F L 97 14 131/83 92 12/19/16 11:06 12/19/16 11:06 12/19/16 11:06 12/19/16 11:06 12/19/16 11:06 General appearance: Present: cachectic, A&O X 1, no acute distress. Absent: cooperative, answers questions appropriately - Respiratory Respiratory exam: Present: CTAB. Absent: accessory muscle use, chest wall tenderness, rales, rhonchi, wheezes - Cardiovascular Cardiovascular exam: Present: RRR, +S1, +S2. Absent: clicks, diastolic murmur, gallop, rubs, systolic murmur - GI/Abdominal GI/Abdominal exam: Present: normal bowel sounds, soft. Absent: distended, firm , guarding, rebound, rigid, tenderness - Extremities Exam Extremities exam: Present: warm, radial pulses palpable and symetrical. Absent : calf tenderness, pedal edema, tenderness - Neurological Exam Neurological exam: Present: altered. Absent: alert, oriented X3 Additional comments: limited neuro exam due to baseline dementia <Abdirizak Santana Kel - Last Filed: 12/19/16 17:19> Date of Encounter: 12/19/16 - Discharge Diagnosis (1) Acute respiratory failure with hypoxia Priority: Primary Status: Acute (2) Pneumonia Priority: Primary Status: Suspected Qualifiers: Pneumonia type: aspiration pneumonia Laterality: bilateral Lung location : lower lobe of lung (3) Yeast UTI Priority: Secondary Status: Acute (4) Dysphagia Priority: Secondary Status: Chronic Qualifiers: Dysphagia type: pharyngeal phase Qualified Code(s): R13.13 - Dysphagia, pharyngeal phase (5) Encephalopathy acute Priority: Secondary Status: Acute (6) Severe protein-calorie malnutrition Priority: Secondary Status: Chronic (7) UTI (urinary tract infection) Priority: Secondary Status: Acute Qualifiers: Urinary tract infection type: acute cystitis Hematuria presence: without hematuria Qualified Code(s): N30.00 - Acute cystitis without hematuria (8) Dementia Priority: Secondary Status: Acute Qualifiers: Dementia type: Parkinson's disease Dementia behavioral disturbance: without behavioral disturbance Qualified Code(s): G20 - Parkinson's disease; F02.80 - Dementia in other diseases classified elsewhere without behavioral disturbance (9) Hypertension Priority: Secondary Status: Chronic Qualifiers: Hypertension type: essential hypertension Qualified Code(s): I10 - Essential (primary) hypertension Date of admission: 12/15/16 21:24 Primary care physician: Taty Cruz, Consults: 12/15/16 21:29 Consult to Speech Therapy [CONS] Routine Comment: Evaluate, develop and implement POC Reason for Consult: pneumonia, dementia, need swallow evaluation Call Completed: No 12/16/16 14:58 Consult to Nutrition [CONS] Routine Comment: Consulting Provider: NUTRITION Reason for Dietary Consult: PO Supplementation Hospital course: Ms. Campos is a 81 year old female - Time Spent with Patient Total time spent providing and/or coordinating discharge services: 38min - Constitutional Vitals: Temp Pulse Resp BP Pulse Ox 98.8 F 89 16 134/76 95 12/19/16 15:58 12/19/16 15:58 12/19/16 16:38 12/19/16 15:58 12/19/16 16:38 - Attending Attestation I examined this patient and my medical decision-making was reviewed with the Resident Physician on 12/19/16 . I agree with the documented findings, disposition and treatment plan as described except to the extent set forth below. Ms. Campos appears to be at baseline. She is drinking and eating well. Her sodium is slightly elevated but she is drinking more today. No fever or chills. Vitals are stable today. Exam Alert. Comfortable Heart reg No wheeze Plan D/C today Encourage PO thickened fluids. Follow labs at [facility].
--- NOTE | 2016-12-19 14:40 | Physician Discharge Referral ---
ExtendedCare Referral Info Transfer To: [facility] Provider in Charge: Dr. Santana Provider in Charge after Transfer: PCP Institutional Level of Care: Skilled - Diagnosis (1) Acute on chronic respiratory failure with hypoxia Priority: Primary Status: Acute (2) COPD exacerbation Status: Acute (3) Sepsis Status: Acute (4) Pneumonia Status: Acute (5) Dementia Status: Acute (6) UTI (urinary tract infection) Status: Acute (7) Altered mental status Status: Acute (8) DVT prophylaxis Status: Acute - Transfer Medications Prescriptions: Amoxicillin/Clavulanate [Augmentin] 875 mg PO BIDWM 5 Days Fluconazole [Diflucan] 200 mg PO DAILY 13 Days predniSONE [PredniSONE] 10 mg PO DAILY #25 tablet Home Medications: Aspirin [Lo-Dose Aspirin EC] 81 mg PO DAILY 01/22/16 [History] FluocinoNIDE 0.05% CRM [Lidex] 1 appl TP DAILY 01/22/16 [History] Multivit-Min/FA/Lycopen/Lutein [Centrum Silver Tablet] 1 tab PO DAILY 01/22/16 [ History] Pravastatin Sodium 10 mg PO DAILY 01/22/16 [History] Amlodipine Besylate 2.5 mg PO DAILY 02/22/16 [History] Salicylic Acid/Ceramide Cmb #1 [Salicylic Acid 6% Cream Kit] 1 each TP MOTH [History] Hydrocortisone 1% CREAM [Cortaid] 1 appl TP TID PRN 08/26/16 [History] Ketoconazole Shampoo [Nizoral Shampoo] 1 appl TP DAILY 08/26/16 [History] Magnesium Hydroxide [Milk of Magnesia] 2,400 mg PO DAILY PRN 08/26/16 [History] Promethazine [Phenergan] 12.5 mg RC Q8H PRN 08/26/16 [History] Carbidopa/Levodopa [Carbidopa-Levo ER 25-100 Tab] 2 tab PO TID #90 tablet.er [Rx] levETIRAcetam [Keppra] 500 mg PO BID #60 tablet 08/29/16 [Rx] Bisacodyl [Dulcolax] 10 mg RC DAILY PRN 12/15/16 [History] Lactulose 20 gm PO BID 12/15/16 [History] Mirtazapine 7.5 mg PO HS 12/15/16 [History] Amoxicillin/Clavulanate [Augmentin] 875 mg PO BIDWM 5 Days 12/19/16 [Rx] Fluconazole [Diflucan] 200 mg PO DAILY 13 Days 12/19/16 [Rx] predniSONE [PredniSONE] 10 mg PO DAILY #25 tablet 12/19/16 [Rx] Allergies/Adverse Reactions: Allergies No Known Allergies Allergy (Verified 08/26/16 10:51) - Respiratory Orders Oxygen / L per min (2) Smoking Cessation: Smoking cessation has been advised. For more information, call the [place] Tobacco Quit Line at 9-868-NUXL-NOW. - Ancillary Orders May use pressure relief devices daily prn, May go on ABEL w/family/respon democrat w /meds at nurse discretion PRN, May consult with Dentist, Automatic Washer Mechanic, Ms Access Database Developer PRN - Advance Directives Code Status: DNR-Arrest/Don't Intubate - Mobility Orders Ambulate (up with assistance, fall precaution) - Rehabiliation Orders Rehab Potential: Poor Rehab Orders: ROM Exercises, Evaluation for Speech Therapy - Treatments Skin tear care topically daily PRN per policy, May check for fecal impaction rectally daily PRN, Fleet enema rectally every other day PRN cleansing purposes - Diet Orders Mechanical Soft (mechanicalll altered diet, encourage more water intake, aspiration precaution, nectar thickended diet and ensure plus TID, assist with feeding) CERTIFICATION: I certify that the transfer of the above named patient to an Extended Care Facility is necessary for the continuing treatment of the diagnosis listed. The above information is true and accurate reflection of patient's current condition. Confidential - Redisclosure prohibited without a patient's written consent.
[2016-12-19 15:59] VITALS: BP 134/76
== END 2016-12-19 18:40 | DRG 871 ==
LOC: EMEROO 17:59 → 2ANU 17:59 → 2NNU 21:17 → 2NENU 21:20 → SUATTDRO 21:24 → 2NENU 21:35
PROVIDERS: ADMIT Internal Medicine; ATTEND Internal Medicine

== ENCOUNTER 2017-06-14 12:10 | Inpatient (IN) ==
--- NOTE | 2017-06-14 12:21 | Emergency Department Note ---
Disposition Clinical Impression: Fall Qualifiers: Encounter type: initial encounter Qualified Code(s): W19.XXXA - Unspecified fall, initial encounter UTI (urinary tract infection) Qualifiers: Urinary tract infection type: site unspecified Hematuria presence: with hematuria Qualified Code(s): N39.0 - Urinary tract infection, site not specified ; R31.9 - Hematuria, unspecified; R31.9 - Hematuria, unspecified Fracture of femoral neck, right Qualifiers: Encounter type: initial encounter Fracture type: closed Qualified Code(s): S72.001A - Fracture of unspecified part of neck of right femur, initial encounter for closed fracture Disposition: Admitted As Inpatient Condition: Fair Time of Disposition: 17:21 Fall HPI - General Chief Complaint: ED Fall Stated Complaint: fall Time Seen by Provider: 06/14/17 12:12 Nursing Notes Reviewed: Yes Vital Signs Reviewed: Yes - History of Present Illness HPI Narrative: Mrs. Campos, 82-year-old female, presents from nursing facility after reported fall from her wheelchair. Noted to be at 11:05 this morning however it was unwitnessed. Patient presents with right-sided complaints. Anticoagulant: None Antiplatelet: Aspirin 81 daily - Related Data Home Medications Medication Instructions Recorded Confirmed Aspirin [Lo-Dose Aspirin EC] 81 mg PO DAILY 01/22/16 06/14/17 Multivit-Min/FA/Lycopen/Lutein 1 tab PO DAILY 01/22/16 06/14/17 [Centrum Silver Tablet] Pravastatin Sodium 10 mg PO DAILY 01/22/16 06/14/17 Amlodipine Besylate 2.5 mg PO DAILY 02/22/16 06/14/17 Salicylic Acid/Ceramide Cmb #1 1 each TP MOTH 08/25/16 06/14/17 [Salicylic Acid 6% Cream Kit] Hydrocortisone 1% CREAM [Cortaid] 1 appl TP TID PRN 08/26/16 06/14/17 Ketoconazole Shampoo [Nizoral 1 appl TP DAILY 08/26/16 06/14/17 Shampoo] Magnesium Hydroxide [Milk of 2,400 mg PO DAILY PRN 08/26/16 06/14/17 Magnesia] Promethazine [Phenergan] 12.5 mg RC Q8H PRN 08/26/16 06/14/17 Bisacodyl [Dulcolax] 10 mg RC DAILY PRN 12/15/16 06/14/17 Lactulose 20 gm PO BID 12/15/16 06/14/17 Carbidopa/Levodopa 25/100 [Sinemet 2 each PO TID 06/14/17 06/14/17 25/100] Lactose-Reduced Food [Ensure Plus] 1 bottle PO QID 06/14/17 06/14/17 LevETIRAcetam [Keppra] 500 mg PO BID 06/14/17 06/14/17 Oxygen 2 l NS AD PRN 06/14/17 06/14/17 Allergies Allergy/AdvReac Type Severity Reaction Status Date / Time No Known Allergies Allergy Verified 08/26/16 10:51 All systems ED: reviewed and negative except as stated. 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 Breathing: No chest wall tenderness. Bilateral breath sounds equal. Circulation: Bilateral radial, posterior tibial, pulses 2/4. No hemorrhaging. Disability: GCS 15. Exposure: No abrasions, lacerations, ecchymosis, or hematomas on the patient's scalp or face, trunk, extremities. Secondary survey Vital Signs Reviewed General: Patient is alert, oriented, and in moderate distress from her right arm and leg pain. She appears thin and frail. HEENT: No facial asymmetry. Head is normocephalic and atraumatic. PERRLA, EOMI. Nasal turbinates moist and pink without epistaxis. Oral mucosa moist. Cardiovascular: Heart regular rate and rhythm without clicks, rubs, gallops, or murmurs. No JVD. PMI nondisplaced. Respiratory: Symmetric chest rise with poor respiratory effort. Bilateral breath sounds are clear without wheezing, crackles, or rhonchi. Abdomen: Bowel sounds present normoactive x-4 quadrants. Abdomen is soft, nondistended, and nontender. No organomegaly noted. Musculoskeletal: Spontaneously moving all extremities. Pain to palpation of right midhumerus, right greater trochanter, right femur, right knee. Neuro: Sensation light touch intact. Psych: Patient's affect is appropriate for situation. Course Course Narrative: Patient presents with unwitnessed fall. CT head and C-spine. She has pain in her right mid humerus as well as entire right thigh/hip/knee. X-ray shows right subcapital femoral neck fracture. We will add on additional lab work prior to admission. I discussed the patient with the on-call orthopedic surgeon, Dr. Manzano, who agrees to see the patient with admission to medicine. I discussed the patient with the admitting hospitalist, Dr. Valentino, who agrees to accept the patient. Head CT 06/14/17 12:16 IMPRESSION: No acute abnormality of the cervical spine. No acute intracranial abnormality D/ / Tammy Liriano Cha, MD / Tammy Liriano Cha, MD Interpreting Provider: Tammy Liriano Cha, MD Cervical Spine CT 06/14/17 12:17 IMPRESSION: No acute abnormality of the cervical spine. No acute intracranial abnormality D/ / Tammy Liriano Cha, MD / Tammy Liriano Cha, MD Interpreting Provider: Tammy Liriano Cha, MD Femur X-Ray 06/14/17 12:17 IMPRESSION: Mildly subluxed right femoral neck fracture. D/ / Max Multani MD / Max Multani MD Interpreting Provider: Max Multani MD Humerus X-Ray 06/14/17 12:17 IMPRESSION: No acute osseous abnormality. D/ / Mxa Puente MD / Max Puente MD Interpreting Provider: Max Puente MD Pelvis X-Ray 12/03/17 12:17 IMPRESSION: Mildly subluxed right femoral neck fracture. D/ / Max Multani MD / Max Multani MD Interpreting Provider: Max Multani MD Vital Signs Temperature 97.4 F L 06/14/17 12:11 Pulse Rate 96 06/14/17 12:11 Respiratory Rate 14 06/14/17 12:11 Blood Pressure 118/69 06/14/17 12:11 O2 Sat by Pulse Oximetry 84 06/14/17 12:11 Temperature 98.3 F 06/14/17 16:53 Pulse Rate 99 06/14/17 16:53 Respiratory Rate 16 06/14/17 16:53 Blood Pressure 112/66 06/14/17 16:53 O2 Sat by Pulse Oximetry 93 06/14/17 16:53 Oxygen Delivery Oxygen Delivery Nasal Cannula Fall - Lab Data Result diagrams: 06/14/17 15:19 06/14/17 15:20 Lab Results 06/14/17 06/14/17 06/14/17 Range/Units 12:30 15:19 15:20 WBC 32.6 H* (4.3-11.1) K/mcL RBC 4.52 (3.82-4.97) M/mcL Hgb 13.0 (11.5-15.4) g/dL Hct 40.5 (35.3-44.9) % MCV 89.6 (83.0-100.0) fL MCH 28.8 (28.0-33.3) pg MCHC 32.1 (31.6-35.5) g/dL RDW 13.6 (11.5-14.5) % Plt Count 293 (140-400) K/mcL MPV 10.7 (9.4-12.4) fL Immature Gran % 0.6 (0-4) % Seg Neutrophils % 90.0 % Lymphocytes % 5.3 % Monocytes % 3.8 % Eosinophils % 0.1 % Basophils % 0.2 % Neutrophils # 29.3 H (1.6-8.9) K/mcL Lymphocytes # 1.7 (0.6-4.6) K/mcL Monocytes # 1.2 (0.0-1.3) K/mcL Eosinophils # 0.0 (0.0-0.6) K/mcL Basophils # 0.1 (0.0-0.2) K/mcL Platelet Estimate Normal (Normal) Sodium 138 (136-145) mEq/L Potassium 4.1 (3.5-4.5) mEq/L Chloride 109 (98-109) mEq/L Carbon Dioxide 26 (19-29) mEq/L BUN 30 H (7-20) mg/dL Creatinine 0.81 (0.57-1.11) mg/dL Est GFR ( Amer) > 60 (> 60) Est GFR (Non-Af Amer) > 60 (> 60) BUN/Creatinine Ratio 37 H (6-26) Glucose 130 H (70-99) mg/dL Calculated Osmolality 294 (280-300) Calcium 8.8 (8.6-10.8) mg/dL Magnesium 1.8 (1.6-2.6) mg/dL Total Bilirubin 0.3 (0.2-1.2) mg/dL AST 15 (5-34) Units/L ALT < 6 (0-55) Units/L Alkaline Phosphatase 88 (38-126) Units/L Serum Total Protein 6.6 (6.0-8.3) g/dL Albumin 2.9 L (3.5-5.0) g/dL Globulin 3.7 H (2.4-3.5) g/dL Albumin/Globulin Ratio 0.8 L (1.1-2.2) Urine Color Yellow (Yellow) Urine Clarity Turbid A (Clear) Urine pH 7.5 (5.0-8.0) pH Units Ur Specific [place] 1.019 (1.010-1.025) Urine Protein 30 H (Neg-Trace) mg/dL Urine Glucose (UA) Normal (Normal) mg/dL Urine Ketones Negative (Negative) mg/dL Urine Blood Small H (Negative) Urine Nitrite Positive A (Negative) Urine Bilirubin Negative (Negative) Urine Urobilinogen Normal (Normal) mg/dL Ur Leukocyte Esterase Large H (Negative) Urine Microscopic RBC 5-15 H (0-3) per hpf Urine Microscopic WBC TNTC H (0-3) per hpf Ur Squamous Epith Cells Many H (None-Few) per lpf Urine Bacteria Many H (None-Few) per hpf Ur Culture Indicated? YES A (NO)
[2017-06-14] MEDS ORDERED: *HR* FentaNYL (PF) 100 MCG/2 ML VIAL IVP ONE (12:25)
[2017-06-14 12:43] LABS: Bilirubin,Urine Negative (Negative); Blood,Urine Small (Negative); Clarity,Urine Turbid (Clear); Color,Urine Yellow (Yellow); Glucose,Urine (UA) Normal (Normal); Ketones,Urine Negative (Negative); Leukocyte Esterase,Urine Large (Negative); Nitrite,Urine Positive (Negative); PH,Urine 7.5 pH Units (5.0-8.0); Protein,Urine 30 mg/dL (Neg-Trace); Specific Gravity,Urine 1.019 (1.010-1.025); Urobilinogen,Urine Normal (Normal)
[2017-06-14 12:48] LABS: Bacteria,Urine Many per hpf (None-Few); Squamous Epithelial Cell,Urine Many per lpf (None-Few); WBC,Urine TNTC per hpf (0-3)
[2017-06-14] MEDS ORDERED: CefTRIAXone 1,000 MG VIAL IM ONE (13:04)
--- NOTE | 2017-06-14 13:17 | Emergency Department Note ---
START Narrative - START START: I examined this patient and my medical decision-making was reviewed with the Resident Physician. I agree with the documented findings, disposition and treatment plan as described except to the extent set forth below. 82 year old female from care home arrives to the ED via EMS for fall from standing that was heard but not witnessed. It appears that she has a UTI on exam in addition to a midlly subluxed femoral neck fracture. CCT head and neck pending. We have dosed her with rocephin and will admit to medicine with ortho consult
[2017-06-14] MEDS ORDERED: 0.9 % Sodium Chloride 500 ML IVC ONE (13:35)
[2017-06-14 15:28] LABS: Basophils % 0.2 %; Lymphocytes % 5.3 %; Red Cell Distribution Width 13.6 % (11.5-14.5)
[2017-06-14 15:30] LABS: Basophils # 0.1 K/mcL (0.0-0.2); Eosinophils % 0.1 %; Hematocrit 40.5 % (35.3-44.9); Immature Granulocytes % 0.6 % (0-4); Lymphocytes # 1.7 K/mcL (0.6-4.6); Mean Corpuscular HGB Conc 32.1 g/dL (31.6-35.5); Mean Corpuscular Hemoglobin 28.8 pg (28.0-33.3); Mean Corpuscular Volume 89.6 fL (83.0-100.0); Mean Platelet Volume 10.7 fL (9.4-12.4); Monocytes # 1.2 K/mcL (0.0-1.3); Monocytes % 3.8 %; Neutrophils # 29.3 K/mcL (1.6-8.9); Platelet Count 293 K/mcL (140-400); Red Blood Count 4.52 M/mcL (3.82-4.97)
[2017-06-14 15:51] LABS: Albumin 2.9 g/dL (3.5-5.0); Albumin/Globulin Ratio 0.8 (1.1-2.2); Alkaline Phosphatase 88 Units/L (38-126); Aspartate Amino Transferase 15 Units/L (5-34); BUN/Creatinine Ratio 37 (6-26); Bilirubin,Total 0.3 mg/dL (0.2-1.2); Blood Urea Nitrogen 30 mg/dL (7-20); Calcium 8.8 mg/dL (8.6-10.8); Carbon Dioxide 26 mEq/L (19-29); Chloride 109 mEq/L (98-109); Globulin 3.7 g/dL (2.4-3.5); Glucose 130 mg/dL (70-99); Magnesium 1.8 mg/dL (1.6-2.6); Osmolality,Calculated 294 (280-300); Potassium 4.1 mEq/L (3.5-4.5); Sodium 138 mEq/L (136-145); Total Protein 6.6 g/dL (6.0-8.3); eGFR For African Americans > 60 (> 60); eGFR For Non-African Americans > 60 (> 60)
[2017-06-14 15:56] LABS: Alanine Aminotransferase < 6 Units/L (0-55)
[2017-06-14 16:09] LABS: Platelet Estimate Normal (Normal)
[2017-06-14] MEDS ORDERED: *HR* Promethazine 25 MG/ML VIAL IVP PRN (17:29)
[2017-06-14] MEDS ORDERED: Acetaminophen 325 MG TABLET PO PRN (17:29)
[2017-06-14] MEDS ORDERED: Ondansetron 4 MG/2 ML VIAL IVP PRN (17:29)
[2017-06-14] MEDS ORDERED: *HR* HYDROcodone/Acet 5/325 mg TABLET PO PRN (17:29)
[2017-06-14] MEDS ORDERED: Naloxone 0.4 MG/ML INJ IVP PRN (17:29)
--- NOTE | 2017-06-14 17:47 | Internal Med History&Physical ---
Date of Encounter: 06/14/17 Time of Encounter: 17:40 Assessment and Plan (1) SIRS (systemic inflammatory response syndrome) Current visit: Yes Status: Acute Will admit the pt into Tele Pt does meet SIRS criteria with elevated WBC, Tachycardia and source of inf as UTI will check lactic acid started on IVF sent for blood cx and urine cx started on empirical abx Rocephin (2) Fracture of femoral neck, right Current visit: Yes Status: Acute Reviewed X ray of Hip and Femur Showed Rt femoral neck fracture Ortho consulted by ER will keep her NPO after mid night will check EKG Also will get 2 D Echo in am for pre op work up IV analgesics PRN Qualifiers: Encounter type: initial encounter Fracture type: closed Qualified Code(s) : S72.001A - Fracture of unspecified part of neck of right femur, initial encounter for closed fracture (3) UTI (urinary tract infection) Current visit: Yes Status: Acute UA- nitrite +ve too many bacteria started on Rocephin Qualifiers: Urinary tract infection type: site unspecified Hematuria presence: without hematuria Qualified Code(s): N39.0 - Urinary tract infection, site not specified (4) Chronic respiratory failure with hypoxia Current visit: Yes Status: Acute seems to be at baseline cont O2 Cont duoneb (5) DVT prophylaxis Current visit: No Status: Acute on Lovenox (6) Dementia Current visit: No Status: Acute cont supportive care Qualifiers: Dementia type: associated with other underlying disease Dementia behavioral disturbance: without behavioral disturbance Qualified Code(s): F02.80 - Dementia in other diseases classified elsewhere without behavioral disturbance (7) COPD (chronic obstructive pulmonary disease) Current visit: No Status: Chronic stable not in exacerbation Qualifiers: 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 Campos is a 82 year old female HTN, DJD, COPD, Dementia, GERD, Frequent UTI, Parkinson's disease [facility] extermin[facility] SN[facility] resident was brought into ER after she had an unwitnessed fall and Rt hip pain. Pt had further work up done in the ER, X ray of Hip showed mildly subluxed Rt femoral neck fracture. She is now alert, awake and oriented to self, pleasantly demented, denied any CP / SOB. Does c/o Rt hip pain, unable to move at Rt hip. Past Med Surg Social Fam HX - Past Medical History Medical history: arthritis, COPD, dementia, GERD, hypertension, osteoporosis, syncope, other Psychiatric history: no psych history - Past Surgical History Surgical History: hysterectomy, ALCIDES/BSO, other - Social History Smoking Status: Former smoker Smokeless Tobacco Status: No Alcohol use: none Drug use: none - Family History Grandfather Hx Family Respiratory Disorders: Yes (Emphysema) Grandmother History Unknown: Yes Hx Family Neurologic Disorders: Yes (CVA) Mother Hx Family Respiratory Disorders: Yes (Empyhsema) Hx Family Neurologic Disorders: Yes (CVA) Brother Hx Family Respiratory Disorders: Yes (empyhema) Internal Medicine - H&P: Meds Aspirin [Lo-Dose Aspirin EC] 81 mg PO DAILY 01/22/16 [History] Multivit-Min/FA/Lycopen/Lutein [Centrum Silver Tablet] 1 tab PO DAILY 01/22/16 [ History] Pravastatin Sodium 10 mg PO DAILY 01/22/16 [History] Amlodipine Besylate 2.5 mg PO DAILY 02/22/16 [History] Salicylic Acid/Ceramide Cmb #1 [Salicylic Acid 6% Cream Kit] 1 each TP MOTH [History] Hydrocortisone 1% CREAM [Cortaid] 1 appl TP TID PRN 08/26/16 [History] Ketoconazole Shampoo [Nizoral Shampoo] 1 appl TP DAILY 08/26/16 [History] Magnesium Hydroxide [Milk of Magnesia] 2,400 mg PO DAILY PRN 08/26/16 [History] Promethazine [Phenergan] 12.5 mg RC Q8H PRN 08/26/16 [History] Bisacodyl [Dulcolax] 10 mg RC DAILY PRN 12/15/16 [History] Lactulose 20 gm PO BID 12/15/16 [History] Carbidopa/Levodopa 25/100 [Sinemet 25/100] 2 each PO TID 06/14/17 [History] Lactose-Reduced Food [Ensure Plus] 1 bottle PO QID 06/14/17 [History] LevETIRAcetam [Keppra] 500 mg PO BID 06/14/17 [History] Oxygen 2 l NS AD PRN 06/14/17 [History] 3 Allergy/AdvReac Type Severity Reaction Status Date / Time No Known Allergies Allergy Verified 08/26/16 10:51 All Systems PM: A 10-system review of systems was performed and is negative for pertinent findings except as documented above in the HPI. Review of systems: Reviewed all the systems, everything is benign except the systems and symptoms I mentioned in HPI - Constitutional Vitals: Temp Pulse Resp BP Pulse Ox 98.3 F 99 16 112/66 93 06/14/17 16:53 06/14/17 16:53 06/14/17 16:53 06/14/17 16:53 06/14/17 16:53 General appearance: Present: A&O X 1, pleasant, no acute distress - Head Head exam: Present: atraumatic, normal inspection - Neck Neck exam general surgery: Present: supple - Respiratory Respiratory exam: Present: decreased breath sounds. Absent: rales, respiratory distress, rhonchi, wheezes - Cardiovascular Cardiovascular exam: Present: RRR, +S1, +S2. Absent: systolic murmur, tachycardia - GI/Abdominal GI/Abdominal exam: Present: normal bowel sounds, soft. Absent: rebound, rigid, tenderness - Extremities Exam Extremities exam: Present: tenderness (Rt hip..). Absent: calf tenderness, pedal edema Additional comments: Limited ROM in Rt hip due to pain - Back Exam Back exam: Absent: CVA tenderness (L), CVA tenderness (R) - Neurological Exam Neurological exam: Present: alert - Psychiatric Additional comments: pleasantly demented Internal Med - H&P Results - Labs CBC & Chem 7: 06/14/17 15:19 06/14/17 15:20
[2017-06-14] MEDS: Carbidopa/Levodopa 25/100 TABLET PO SCH ×2 (18:00→20:45)
[2017-06-14] MEDS: 0.9 % Sodium Chloride 1,000 ML IVC SCH (18:00)
[2017-06-14] MEDS: levETIRAcetam 250 MG TABLET PO SCH (20:54)
[2017-06-14] MEDS ORDERED: NON-FORMULARY MEDICATION 1 EACH EACH (Lactose-Reduced Food [Ensure Plus] 1 BOTTLE) PO SCH (21:00)
[2017-06-15] MEDS: *HR* Morphine 2 MG/ML SYRINGE IVP PRN ×2 (03:58→14:10)
[2017-06-15] MEDS: 0.9 % Sodium Chloride 1,000 ML IVC SCH (04:01)
[2017-06-15] MEDS: *HR* Enoxaparin 40 MG/0.4 ML SYRINGE SQ SCH (04:08)
[2017-06-15 05:03] LABS: Basophils # 0.1 K/mcL (0.0-0.2); Basophils % 0.3 %; Eosinophils % 0.2 %; Hematocrit 34.7 % (35.3-44.9); Hemoglobin 10.9 g/dL (11.5-15.4); Immature Granulocytes % 0.4 % (0-4); Lymphocytes # 1.2 K/mcL (0.6-4.6); Lymphocytes % 6.1 %; Mean Corpuscular HGB Conc 31.4 g/dL (31.6-35.5); Mean Corpuscular Hemoglobin 27.9 pg (28.0-33.3); Mean Corpuscular Volume 88.7 fL (83.0-100.0); Mean Platelet Volume 10.9 fL (9.4-12.4); Monocytes # 0.9 K/mcL (0.0-1.3); Monocytes % 4.9 %; Neutrophils # 16.8 K/mcL (1.6-8.9); Platelet Count 232 K/mcL (140-400); Red Blood Count 3.91 M/mcL (3.82-4.97); Red Cell Distribution Width 13.9 % (11.5-14.5); Segmented Neutrophils % 88.1 %
[2017-06-15 05:15] LABS: BUN/Creatinine Ratio 39 (6-26); Blood Urea Nitrogen 31 mg/dL (7-20); Calcium 8.8 mg/dL (8.6-10.8); Carbon Dioxide 24 mEq/L (19-29); Chloride 114 mEq/L (98-109); Glucose 119 mg/dL (70-99); Osmolality,Calculated 300 (280-300); Potassium 4.4 mEq/L (3.5-4.5); Sodium 141 mEq/L (136-145); eGFR For African Americans > 60 (> 60); eGFR For Non-African Americans > 60 (> 60)
[2017-06-15] MEDS ORDERED: 0.9 % Sodium Chloride 1,000 ML IVC SCH (08:45)
[2017-06-15] MEDS: Aspirin Enteric Coated 81 MG Tablet PO SCH (09:02)
--- NOTE | 2017-06-15 09:07 | Orthopedic Consult Note ---
Date of Encounter: 06/15/17 Time of Encounter: 09:05 Assessment and Plan (1) Fracture of femoral neck, right Current Visit: Yes Status: Acute The diagnosis and treatment options were discussed with the patient and her family. She has a non-displaced fracture of the femoral neck. She does have significant pain in the hip and uses the leg to aid in transfers. For pain control and to aid in getting out of bed, the patient and her family have elected to go forward with percutaneous pinning of the right hip following medical clearance. The risks and benefits of the procedure were fully explained in detail, including but not limited to the risk of infection, neurovascular injury, continued pain or stiffness, failure of surgery, reinjury, or need for additional surgery, DVT, PE, general risks of anesthesia and loss of limb or life. No guarantees were given or implied and all questions were answered. NPO Plan for surgery today if medically cleared Qualifiers: Encounter type: initial encounter Fracture type: closed Qualified Code(s) : S72.001A - Fracture of unspecified part of neck of right femur, initial encounter for closed fracture History of Present Illness HPI: Ms. Campos is a 82 year old female who fell out of her wheelchair yesterday. Brought to the ED with R hip pain. Imaging showed non-displaced R FNFx. Patient is in a wheelchair, uses RLE for transfers. No CP/SOB. No other ortho complaints today. Past Med Surg Social Fam HX - Past Medical History Medical history: arthritis, COPD, dementia, GERD, hypertension, osteoporosis, syncope, other Psychiatric history: no psych history - Past Surgical History Surgical History: hysterectomy, ALCIDES/BSO, other - Social History Smoking Status: Former smoker Smokeless Tobacco Status: No Alcohol use: none Drug use: none - Family History Grandfather Hx Family Respiratory Disorders: Yes (Emphysema) Grandmother History Unknown: Yes Hx Family Neurologic Disorders: Yes (CVA) Mother Hx Family Respiratory Disorders: Yes (Empyhsema) Hx Family Neurologic Disorders: Yes (CVA) Brother Hx Family Respiratory Disorders: Yes (empyhema) Medications and Allergies Aspirin [Lo-Dose Aspirin EC] 81 mg PO DAILY 01/22/16 [History] Multivit-Min/FA/Lycopen/Lutein [Centrum Silver Tablet] 1 tab PO DAILY 01/22/16 [ History] Pravastatin Sodium 10 mg PO DAILY 01/22/16 [History] Amlodipine Besylate 2.5 mg PO DAILY 02/22/16 [History] Salicylic Acid/Ceramide Cmb #1 [Salicylic Acid 6% Cream Kit] 1 each TP MOTH [History] Hydrocortisone 1% CREAM [Cortaid] 1 appl TP TID PRN 08/26/16 [History] Ketoconazole Shampoo [Nizoral Shampoo] 1 appl TP DAILY 08/26/16 [History] Magnesium Hydroxide [Milk of Magnesia] 2,400 mg PO DAILY PRN 08/26/16 [History] Promethazine [Phenergan] 12.5 mg RC Q8H PRN 08/26/16 [History] Bisacodyl [Dulcolax] 10 mg RC DAILY PRN 12/15/16 [History] Lactulose 20 gm PO BID 12/15/16 [History] Carbidopa/Levodopa 25/100 [Sinemet 25/100] 2 each PO TID 06/14/17 [History] Lactose-Reduced Food [Ensure Plus] 1 bottle PO QID 06/14/17 [History] LevETIRAcetam [Keppra] 500 mg PO BID 06/14/17 [History] Oxygen 2 l NS AD PRN 06/14/17 [History] 3 Allergy/AdvReac Type Severity Reaction Status Date / Time No Known Allergies Allergy Verified 08/26/16 10:51 All Systems Reviewed: A 10-system review of systems was performed and is negative for pertinent findings except as documented above in the HPI. Physical Exam - Constitutional Vitals: Temp Pulse Resp BP Pulse Ox 98.4 F 92 17 120/67 92 06/15/17 07:11 06/15/17 07:11 06/15/17 07:11 06/15/17 07:11 06/15/17 07:11 Exam: Consult Exam: Constitutional -Vitals reviewed -The patient is thin. Psychiatric -The patient responds to questions appropriately Respiratory: -Respiratory effort normal Abdomen: -Soft abdomen -Non tender -Non distended: Left upper extremity: -No deformities. The overlying skin is intact. No obvious signs of acute trauma. -No tenderness to palpation throughout. -No significant pain with passive motion of the shoulder, elbow, wrist, and fingers within the limits of the bed. -Able to make an "OK" sign, cross the index and long fingers, and extend the thumb. -Sensation grossly intact to light touch throughout the median, radial, and ulnar distributions. -Radial pulse is present; Fingers have good capillary refill. Right upper extremity: -No deformities. The overlying skin is intact. No obvious signs of acute trauma. -No tenderness to palpation throughout. -No significant pain with passive motion of the shoulder, elbow, wrist, and fingers within the limits of the bed. -Able to make an "OK" sign, cross the index and long fingers, and extend the thumb. -Sensation grossly intact to light touch throughout the median, radial, and ulnar distributions. -Radial pulse is present; Fingers have good capillary refill. Left lower extremity: -No deformities. The overlying skin is intact. No obvious signs of acute trauma. -No tenderness to palpation throughout. -No pain with passive motion of the hip, knee, ankle, and toes within the limits of the bed. -No pain with axial loading of the thigh. -Able to dorsiflex and plantarflex the ankle and toes. -Sensation is grossly intact to light touch throughout the sural, saphenous, superficial peroneal, and deep peroneal distributions. -Toes have good capillary refill. Right lower extremity: -I did not range the hip due to known fracture -No TTP along knee, ankle, leg, foot -Able to dorsiflex and plantarflex the ankle and toes. -Sensation is grossly intact to light touch throughout the sural, saphenous, superficial peroneal, and deep peroneal distributions. -Toes have good capillary refill. Results - Labs Result Diagrams: 06/15/17 04:45 06/15/17 04:45 Labs: Abnormal lab results WBC 19.1 K/mcL (4.3-11.1) H 06/15/17 04:45 Hgb 10.9 g/dL (11.5-15.4) L D 06/15/17 04:45 Hct 34.7 % (35.3-44.9) L 06/15/17 04:45 MCH 27.9 pg (28.0-33.3) L 06/15/17 04:45 MCHC 31.4 g/dL (31.6-35.5) L 06/15/17 04:45 Neutrophils # 16.8 K/mcL (1.6-8.9) H 06/15/17 04:45 Chloride 114 mEq/L (98-109) H 06/15/17 04:45 BUN 31 mg/dL (7-20) H 06/15/17 04:45 BUN/Creatinine Ratio 39 (6-26) H 06/15/17 04:45 Glucose 119 mg/dL (70-99) H 06/15/17 04:45 Lactic Acid 2.6 mmol/L (0.5-2.2) H 06/14/17 18:12 Albumin 2.9 g/dL (3.5-5.0) L 06/14/17 15:20 Globulin 3.7 g/dL (2.4-3.5) H 06/14/17 15:20 Albumin/Globulin Ratio 0.8 (1.1-2.2) L 06/14/17 15:20 Urine Clarity Turbid (Clear) A 06/14/17 12:30 Urine Protein 30 mg/dL (Neg-Trace) H 06/14/17 12:30 Urine Blood Small (Negative) H 06/14/17 12:30 Urine Nitrite Positive (Negative) A 06/14/17 12:30 Ur Leukocyte Esterase Large (Negative) H 06/14/17 12:30 Urine Microscopic RBC 5-15 per hpf (0-3) H 06/14/17 12:30 Urine Microscopic WBC TNTC per hpf (0-3) H 06/14/17 12:30 Ur Squamous Epith Cells Many per lpf (None-Few) H 06/14/17 12:30 Urine Bacteria Many per hpf (None-Few) H 06/14/17 12:30 Ur Culture Indicated? YES (NO) A 06/14/17 12:30 H & H 06/15/17 Range/Units 04:45 Hgb 10.9 L D (11.5-15.4) g/dL Hct 34.7 L (35.3-44.9) % All other labs normal. - Diagnostic results Shoulder CT: image reviewed (no fx/dislocation) Hip x-ray: image reviewed (non-displaced FNFx) Consult Discharge Plan - Plan Referrals: NONE,PCP [Primary Care Provider] -
[2017-06-15] MEDS: Carbidopa/Levodopa 25/100 TABLET PO SCH ×3 (09:08→21:00)
[2017-06-15] MEDS: amLODIPine 5 MG TABLET PO SCH (09:08)
[2017-06-15] MEDS: levETIRAcetam 250 MG TABLET PO SCH ×2 (09:08→21:00)
--- NOTE | 2017-06-15 11:13 | Internal Med Progress Note ---
Date of Encounter: 06/15/17 Time of Encounter: 09:00 - Assessment and plan (1) SIRS (systemic inflammatory response syndrome) Current Visit: Yes Status: Acute Assessment and plan: Pt did meet SIRS criteria with elevated WBC, Tachycardia, Lactic acidosis and source of inf as UTI Cont IV hydration will f/u on blood cx and urine cx- so far they are P Cont on empirical abx Rocephin (2) Fracture of femoral neck, right Current Visit: Yes Status: Acute Assessment and plan: Cont symptomatic and supportive care Ortho on board.. scheduled for surgery later today Reviewed her EKG my self : Showed mild Sinus tachycardia with VR 101, No ST elevation / depression. No acute ischemic changes Ordered 2 D Echo - P Pt is at intermediate to high risk for major surgeries like Hip repair due to her COPD, Chronic hypoxic resp failure, HTN and chronic LVH changes Qualifiers: Encounter type: initial encounter Fracture type: closed Qualified Code(s) : S72.001A - Fracture of unspecified part of neck of right femur, initial encounter for closed fracture (3) UTI (urinary tract infection) Current Visit: Yes Status: Acute Assessment and plan: cont empirical abx Rocpehin will f/u on Urine cx Qualifiers: Urinary tract infection type: site unspecified Hematuria presence: without hematuria Qualified Code(s): N39.0 - Urinary tract infection, site not specified (4) Chronic respiratory failure with hypoxia Current Visit: Yes Status: Acute Assessment and plan: currently on 2 lit O2 seems to be at her baseline cont duoneb (5) DVT prophylaxis Current Visit: No Status: Acute (6) Dementia Current Visit: No Status: Acute Assessment and plan: advanced dementia continue supportive care spoke to pt's son in law at bed side.. He would like to continue same code status she was placed on at SNF. Reviewed SNF documents, showed as DNR CC So will change her code status to DNR CC Qualifiers: Dementia type: associated with other underlying disease Dementia behavioral disturbance: without behavioral disturbance Qualified Code(s): F02.80 - Dementia in other diseases classified elsewhere without behavioral disturbance (7) COPD (chronic obstructive pulmonary disease) Current Visit: No Status: Chronic Assessment and plan: stable not in exacerbation Qualifiers: COPD type: emphysema Emphysema type: centrilobular Qualified Code(s): J43.2 - Centrilobular emphysema - Subjective Interval history: Ms. Campos is a 82 year old female HTN, DJD, COPD, Dementia, GERD, Frequent UTI, Parkinson's disease terminal [facility] was brought into ER after she had an unwitnessed fall and Rt hip pain. Pt had further work up done in the ER, X ray of Hip showed mildly subluxed Rt femoral neck fracture. Pt stated her pain tolerable with current pain medication. No events over night. Denied any CP / SOB. Resting comfortably - Constitutional Vitals: Temp Pulse Resp BP Pulse Ox 98.4 F 92 17 120/67 92 06/15/17 07:11 06/15/17 07:11 06/15/17 07:11 06/15/17 07:11 06/15/17 07:11 General appearance: Present: A&O X 1, pleasant, no acute distress - Head Head exam: Present: atraumatic, normal inspection - Neck Neck exam general surgery: Present: supple - Respiratory Respiratory exam: Present: decreased breath sounds, wheezes (mild). Absent: rales, respiratory distress, rhonchi - Cardiovascular Cardiovascular exam: Present: RRR, +S1, +S2. Absent: systolic murmur - GI/Abdominal GI/Abdominal exam: Present: normal bowel sounds, soft. Absent: rebound, rigid, tenderness - Extremities Exam Extremities exam: Present: tenderness (Rt hip). Absent: calf tenderness, pedal edema Additional comments: Limited ROM in Rt hip due to pain. Neuro vascularly intact distally - Back Exam Back exam: Absent: CVA tenderness (L), CVA tenderness (R) - Neurological Exam Neurological exam: Present: alert - Psychiatric Psychiatric exam: Present: normal affect, normal mood - Skin Skin exam: Absent: rash Internal Medicine: Result - Labs CBC & Chem 7: 06/15/17 04:45 06/15/17 04:45 Labs: Short CBC 06/15/17 Range/Units 04:45 WBC 19.1 H (4.3-11.1) K/mcL Hgb 10.9 L D (11.5-15.4) g/dL Hct 34.7 L (35.3-44.9) % Plt Count 232 (140-400) K/mcL Neutrophils # 16.8 H (1.6-8.9) K/mcL BMP 06/15/17 04:45 Sodium 141 Potassium 4.4 Chloride 114 H Carbon Dioxide 24 BUN 31 H Creatinine 0.79 Glucose 119 H Calcium 8.8 Consult Discharge Plan - Plan Referrals: NONE,PCP [Primary Care Provider] -
[2017-06-15] MEDS ORDERED: cefTRIAXone 1,000 MG in Water for inj. (sterile) 10 ML IVP SCH (16:45)
[2017-06-15] MEDS ORDERED: Furosemide 20 MG/2 ML VIAL IVP ONE (16:54)
[2017-06-15] MEDS ORDERED: Vancomycin 750 MG in D5% in Water 250 ML IVPB SCH (17:00)
--- NOTE | 2017-06-15 17:03 | Event Note ---
Date of Encounter: 06/15/17 Time of Encounter: 16:55 Pt's respiratory status started declining rapidly. Now she is on 15 lit O2 through face mask and Spo2 @ 92. She denied any CP. She is alert, awake and O to self only. PE; Chest: Diffuse wheezing, mild rales at bottom. No rhonchi Heart: s1 S2 + RRR no murmurs a/p 1. Acute hypoxic resp failure 2. Acute b/l Pneumonia - mostly bacterial 3. Acute pulmonary edema due to pneumonia + Volume overload 4. Acute diastolic HF exacerbation 5. Acute COPD exacerbation Reviewed CXR by myself - showed inc vascular congestion, and patchy infiltrates 2 D Echo showed preserved LVEF, however she does have mid LV diastolic dysfunction d/c IV fluids trend on LA will check ABG now changed abx to Zosyn and Vancomycin started on high dose IV steroids cont O2 through FM.. If ABG shows any hypercapneic resp failure.. will place her on BiPAP talked to the family at bed side and updated them about current care as of now they recommend to continue current care.. code status leon DNR-CC Talked to surgeon, decided to hold on the surgery I did spent 45 minutes critical care time on this pt' critical care.
[2017-06-15] MEDS: Piperacillin/Tazobactam 3.375 GM/200 ML BAG IVPB SCH (17:43)
[2017-06-15] MEDS: methylPREDNISolone 125 MG/2 ML VIAL IVP SCH ×2 (17:43→18:04)
[2017-06-15] MEDS ORDERED: Vancomycin 1,000 MG in D5% in Water 250 ML IVPB ONE (18:00)
[2017-06-15] MEDS: Ipratropium/Albuterol Neb 3 ML IH SCH ×2 (19:55→23:28)
[2017-06-15 19:57] LABS: ABG Base Excess -3 mEq/L (-2 to 3); ABG HCO3 21 mEq/L (21-27); ABG Oxygen Saturation 90 % (95-98); ABG PCO2 33 mmHg (35-45); ABG PH 7.41 pH Units (7.32-7.45); ABG PO2 58 mmHg (85-104); ABG TCO2 22 mEq/L (20-26)
[2017-06-16] MEDS: methylPREDNISolone 125 MG/2 ML VIAL IVP SCH ×4 (02:00→17:28)
[2017-06-16] MEDS: Piperacillin/Tazobactam 3.375 GM/200 ML BAG IVPB SCH ×3 (02:00→17:28)
[2017-06-16] MEDS: Ipratropium/Albuterol Neb 3 ML IH SCH ×6 (03:41→23:57)
[2017-06-16] MEDS ORDERED: Vancomycin 750 MG in D5% in Water 250 ML IVPB SCH (06:00)
[2017-06-16] MEDS: *HR* Enoxaparin 40 MG/0.4 ML SYRINGE SQ SCH ×2 (06:52→07:42)
[2017-06-16 07:01] LABS: Basophils % 0.2 %; Hematocrit 36.9 % (35.3-44.9); Hemoglobin 11.6 g/dL (11.5-15.4); Immature Granulocytes % 0.5 % (0-4); Lymphocytes # 0.7 K/mcL (0.6-4.6); Lymphocytes % 5.6 %; Mean Corpuscular HGB Conc 31.4 g/dL (31.6-35.5); Mean Corpuscular Hemoglobin 27.7 pg (28.0-33.3); Mean Corpuscular Volume 88.1 fL (83.0-100.0); Mean Platelet Volume 10.8 fL (9.4-12.4); Monocytes # 0.2 K/mcL (0.0-1.3); Monocytes % 1.9 %; Neutrophils # 11.4 K/mcL (1.6-8.9); Platelet Count 201 K/mcL (140-400); Red Blood Count 4.19 M/mcL (3.82-4.97); Segmented Neutrophils % 91.8 %
[2017-06-16 07:25] LABS: BUN/Creatinine Ratio 34 (6-26); Blood Urea Nitrogen 28 mg/dL (7-20); Calcium 8.7 mg/dL (8.6-10.8); Carbon Dioxide 22 mEq/L (19-29); Chloride 107 mEq/L (98-109); Glucose 176 mg/dL (70-99); Osmolality,Calculated 306 (280-300); Potassium 3.4 mEq/L (3.5-4.5); Sodium 143 mEq/L (136-145); eGFR For African Americans > 60 (> 60); eGFR For Non-African Americans > 60 (> 60)
[2017-06-16] MEDS: amLODIPine 5 MG TABLET PO SCH (09:23)
[2017-06-16] MEDS: Aspirin Enteric Coated 81 MG Tablet PO SCH (09:23)
[2017-06-16] MEDS: Carbidopa/Levodopa 25/100 TABLET PO SCH ×3 (09:23→21:39)
--- NOTE | 2017-06-16 09:41 | Orthopedics Progress Note ---
Date of Encounter: 06/16/17 Time of Encounter: 09:37 - Assessment and Plan (1) Fracture of femoral neck, right Current Visit: Yes Status: Acute NPO at OR, continue medical treatment. Surgery tomorrow if cleared Qualifiers: Encounter type: initial encounter Fracture type: closed Qualified Code(s) : S72.001A - Fracture of unspecified part of neck of right femur, initial encounter for closed fracture Subjective Interval history: S: R hip pain. Developed increasing O2 requirement yesterday requiring cancellation of surgery. On 15 L yesterday, bipap overnight with breathing treatments. On antibiotics currently for pneumonia. O: Vitals reviewed, on 15 L O2, AF vitals otherwise stable GEN: Receiving breathing treatment, responds to questions RLE: +log roll/IR DNVI No other TTP A/P: 82 yo F with R FNFx -Due to her medical issues and increasing O2 requirement, we will hold off on surgery today. We will see how she responds to treatments today and if she is able we will plan for CRPP R hip tomorrow -Continue medical management -NPO at OR Objective Vital signs: Vital Signs Temp Pulse Resp BP Pulse Ox 06/16/17 07:55 15 100 06/16/17 06:39 97.9 F 87 15 169/86 100 06/16/17 04:20 97.6 F 98 20 155/85 98 06/16/17 03:42 16 99 06/15/17 23:31 20 100 06/15/17 23:30 98.7 F 97 18 163/92 100 06/15/17 20:55 21 96 06/15/17 20:39 99.8 F H 104 14 144/81 92 06/15/17 19:55 18 91 06/15/17 15:50 19 91 06/15/17 15:35 20 91 06/15/17 15:30 102 21 76 06/15/17 12:07 97.9 F 89 16 114/76 92 Intake and Output 06/15/17 06/16/17 06/16/17 23:59 07:59 15:59 Intake Total 200 / 200 Output Total 400 / 400 300 / 300 Balance -200 / -200 -300 / -300 Intake: IV Fluids 200 / 200 Zosyn Premix 3.375 GM/200 ML 3. 200 / 200 375 gm In 200 ml @ 50 mls/hr IVPB Q8H ON LICENSE OF [facility] Rx#:[id number] Output: Catheter 400 / 400 300 / 300 Other: # Urine Diapers 1 - Labs CBC & BMP: 06/16/17 06:38 06/16/17 06:38 Labs: Abnormal lab results WBC 12.4 K/mcL (4.3-11.1) H 06/16/17 06:38 MCH 27.7 pg (28.0-33.3) L 06/16/17 06:38 MCHC 31.4 g/dL (31.6-35.5) L 06/16/17 06:38 Neutrophils # 11.4 K/mcL (1.6-8.9) H 06/16/17 06:38 ABG pCO2 33 mmHg (35-45) L 06/15/17 19:54 ABG pO2 58 mmHg (85-104) L 06/15/17 19:54 ABG O2 Saturation 90 % (95-98) L 06/15/17 19:54 ABG Base Excess -3 mEq/L (-2 to 3) L 06/15/17 19:54 Potassium 3.4 mEq/L (3.5-4.5) L D 06/16/17 06:38 BUN 28 mg/dL (7-20) H 06/16/17 06:38 BUN/Creatinine Ratio 34 (6-26) H 06/16/17 06:38 Glucose 176 mg/dL (70-99) H 06/16/17 06:38 Calculated Osmolality 306 (280-300) H 06/16/17 06:38 Albumin 2.9 g/dL (3.5-5.0) L 06/14/17 15:20 Globulin 3.7 g/dL (2.4-3.5) H 06/14/17 15:20 Albumin/Globulin Ratio 0.8 (1.1-2.2) L 06/14/17 15:20 Urine Clarity Turbid (Clear) A 06/14/17 12:30 Urine Protein 30 mg/dL (Neg-Trace) H 06/14/17 12:30 Urine Blood Small (Negative) H 06/14/17 12:30 Urine Nitrite Positive (Negative) A 06/14/17 12:30 Ur Leukocyte Esterase Large (Negative) H 12/03/17 12:30 Urine Microscopic RBC 5-15 per hpf (0-3) H 06/14/17 12:30 Urine Microscopic WBC TNTC per hpf (0-3) H 06/14/17 12:30 Ur Squamous Epith Cells Many per lpf (None-Few) H 06/14/17 12:30 Urine Bacteria Many per hpf (None-Few) H 06/14/17 12:30 Ur Culture Indicated? YES (NO) A 06/14/17 12:30 - VTE Documentation of Mechanical Device: Venous foot pump, device Consult Discharge Plan - Plan Referrals: NONE,PCP [Primary Care Provider] -
[2017-06-16] MEDS ORDERED: Aminoglycoside Consult 1 EACH MC ONE (15:10)
--- NOTE | 2017-06-16 17:38 | Internal Med Progress Note ---
Date of Encounter: 06/16/17 Time of Encounter: 10:00 - Assessment and plan (1) UTI (urinary tract infection) Current Visit: No Status: Acute Assessment and plan: Urine culture shows Klebsiella and Enterococcus, sensitive to vanco and zosyn respectively. Pt is on vanco and zosyn. Qualifiers: Urinary tract infection type: acute cystitis Hematuria presence: without hematuria Qualified Code(s): N30.00 - Acute cystitis without hematuria (2) Parkinson disease Current Visit: No Status: Chronic Assessment and plan: Cont home meds. (3) DVT prophylaxis Current Visit: No Status: Acute Assessment and plan: Heparin SC (4) Pneumonia Current Visit: No Status: Suspected Assessment and plan: Pt has suspected pneumonia on CXR, treated with vanco and zosyn now. Qualifiers: Pneumonia type: due to Pneumococcus Laterality: bilateral Lung location: lower lobe of lung Qualified Code(s): J13 - Pneumonia due to Streptococcus pneumoniae (5) Acute respiratory failure with hypoxia Current Visit: No Status: Acute Assessment and plan: Possibly due to COPD exacerbation and pneumonia. Cont suppotive treatment with NC O2 and BiPAP as needed. (6) COPD exacerbation Current Visit: No Status: Acute Assessment and plan: Slightly improved but still need O2 and BiPAP. Pt doesn't need O2 at home. Will cont Abx, steroid, and nebulizer. (7) Fracture of femoral neck, right Current Visit: Yes Status: Acute Assessment and plan: Cont symptomatic and supportive care Ortho on board.. scheduled for surgery but pt has hypoxia and SOB Repeat EKG shows moderate ST-T change with signs of lateral ischemia, will consult cardiology prior to surgery. Qualifiers: Encounter type: initial encounter Fracture type: closed Qualified Code(s) : S72.001A - Fracture of unspecified part of neck of right femur, initial encounter for closed fracture - Time Spent With Patient 25 - 35 minutes - Subjective Interval history: Patient was seen and examined. Shortness of breath has improved. Oxygen requirement has decreased. Patient tolerated nasal cannula oxygen on 3 L with SPO2 90-92%. Patient is very weak. I have discussed with patient's daughter ( and POA) regarding the risk of surgery. Patient may end up with difficult extubation, prolonged ventilation, needs of tracheostomy, further lung infection and even . Patient's daughter verbalized understanding of the risk but still would like to proceed to surgery. EKG shows moderate ST-T change , pt denies chest pain. Will consult cardio for further evaluation of surgery risks in AM. - Constitutional Vitals: Temp Pulse Resp BP Pulse Ox 98.3 F 101 16 126/72 97 06/16/17 16:23 06/16/17 16:23 06/16/17 16:28 06/16/17 16:23 06/16/17 16:28 General appearance: Present: cachectic, A&O X 1, pleasant, no acute distress - Head Head exam: Present: atraumatic, normocephalic - Eye Eye exam: Present: PERRL, conjuntiva pink, sclera anicteric Pupils: Present: PERRL - Neck Neck exam general surgery: Present: supple, trachea midline. Absent: lymphadenopathy - Respiratory Respiratory exam: Present: CTAB. Absent: accessory muscle use, rales, rhonchi, wheezes - Cardiovascular Cardiovascular exam: Present: RRR, +S1, +S2. Absent: diastolic murmur, gallop, rubs, systolic murmur - GI/Abdominal GI/Abdominal exam: Present: normal bowel sounds, soft, no peritoneal signs. Absent: distended, tenderness - Extremities Exam Extremities exam: Present: warm, radial pulses palpable and symmetrical. Absent : calf tenderness, cyanotic, pedal edema - Neurological Exam Neurological exam: Present: CN II-XII intact, oriented X3, no focal deficits. Absent: pronater drift, facial droop, speech deficit - Skin Skin exam: Present: dry, intact Internal Medicine: Result - Labs CBC & Chem 7: 06/16/17 06:38 06/16/17 06:38 Labs: Short CBC 06/16/17 Range/Units 06:38 WBC 12.4 H (4.3-11.1) K/mcL Hgb 11.6 (11.5-15.4) g/dL Hct 36.9 (35.3-44.9) % Plt Count 201 (140-400) K/mcL Neutrophils # 11.4 H (1.6-8.9) K/mcL BMP 06/16/17 06:38 Sodium 143 Potassium 3.4 L D Chloride 107 Carbon Dioxide 22 BUN 28 H Creatinine 0.83 Glucose 176 H Calcium 8.7 - ABG Interpretation ABG results: ABG ABG pH 7.41 pH Units (7.32-7.45) 06/15/17 19:54 ABG pCO2 33 mmHg (35-45) L 06/15/17 19:54 ABG pO2 58 mmHg (85-104) L 06/15/17 19:54 ABG O2 Saturation 90 % (95-98) L 06/15/17 19:54 - EKG Interpretation EKG Interpreted by Myself: Yes (ST-T change, suspect lateral ischemia) EKG shows normal: sinus rhythm Rate: tachycardia - VTE Documentation of Mechanical Device: Venous foot pump, device Consult Discharge Plan - Plan Referrals: NONE,PCP [Primary Care Provider] -
[2017-06-17] MEDS: Piperacillin/Tazobactam 3.375 GM/200 ML BAG IVPB SCH ×2 (00:35→10:58)
[2017-06-17] MEDS: methylPREDNISolone 125 MG/2 ML VIAL IVP SCH ×3 (00:35→12:23)
[2017-06-17] MEDS: Ipratropium/Albuterol Neb 3 ML IH SCH ×3 (04:48→11:07)
[2017-06-17] MEDS ORDERED: *HR* Heparin 5,000 UNIT/ML VIAL SQ SCH (06:00)
[2017-06-17] MEDS: Vancomycin 750 MG in D5% in Water 250 ML IVPB SCH ×2 (07:18→10:21)
[2017-06-17] MEDS ORDERED: Potassium Chloride Elixir 20 MEQ/15 ML UDC PO ONE (07:20)
--- NOTE | 2017-06-17 07:21 | Pulmonology Consult Note ---
Date of Encounter: 06/17/17 Time of Encounter: 07:20 Assessment and Plan (1) Preop pulmonary/respiratory exam Current Visit: Yes Status: Acute This is an 82-year-old woman with COPD and advanced dementia she is a Edu of a nursing facility for her dementia and ongoing clinical decline and what is essentially failure to thrive. Fortunately she had a recent fall with a right femur fracture pulmonary was consulted for evaluation of her preoperative pulmonary status as well as to evaluate for acute on chronic respiratory failure. Her respiratory failure is a combination of factors including suspected volume overload underlying pulmonary hypertension COPD with likely mild exacerbation and pneumonia. Clinically she looks quite stable today from what has been described to be over the prior 24 and 48 hours. I would recommend continuation of current treatments with plan to wean oxygen to around 89-92%. 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 It appears that brought microbiological workup has been obtained which is appropriate current antimicrobials include vancomycin and Zosyn which I feel is appropriate. I do not feel strongly that the patient requires MRSA coverage per say and I suspect that focus on coverage of enterococcus and Klebsiella pneumoniae on the urinary source would also cover potential lung pathogens. Zosyn is an attractive option because of its ability to cover anaerobic infections in the context of possible aspiration. From a pneumonia standpoint she should be treated for at least 7 days for pneumonia however I suspect for underlying UTI her antimicrobial coverage would go past this anyways From the standpoint of her COPD wih presumed AECOPD it is reasonable to continue IV steroids although I would wean the dose to methylprednisolone 40 mg twice a day in addition to continuation of bronchodilator therapy on a scheduled basis is receiving antimicrobial therapy as outlined above Her preoperative pulmonary examination reflects a very high risk of procedurally related pulmonary events including but not limited to respiratory failure requiring prolonged intubation and life threatening pneumonia. Clearly proceeding with surgery at the present but started and even increased risk given ongoing active infection and suspected COPD exacerbation. I recommend conservative management from a pulmonary perspective at this time. If final decision is made to proceed with surgery she will be at significantly increased risk of complications Lastly I had a hayde discussion with her healthcare power of shoe lacer and explained that clinically I feel that mothers course is consistent with end-of- life. I think is very appropriate to transition to hospice measures given her advanced dementia underlying cardiorespiratory problems and functional decline/ failure to thrive. Her CODE STATUS is currently DNR CC which reflects essentially comfort measures only i.e. hospice I would recommend a formal consultation with palliative care for ongoing goals of care discussion. At the end of her conversation her healthcare power of shoe lacer thank me for having the discussion with her and she agrees that her mother's life expectancy is very limited and she does want to focus on quality and not necessarily quantity of life going forward. Thank you for consulting pulmonary please call with any questions (2) Femur fracture, right Current Visit: Yes Status: Acute Qualifiers: Qualified Code(s): S72.91XA - Unspecified fracture of right femur, initial encounter for closed fracture (4) Emphysema of lung Current Visit: No Status: Chronic Qualifiers: Emphysema type: unspecified Qualified Code(s): J43.9 - Emphysema, unspecified (5) Failure to thrive syndrome, adult Current Visit: No Status: Chronic (6) UTI (urinary tract infection) Current Visit: No Status: Acute Qualifiers: Urinary tract infection type: acute cystitis Hematuria presence: without hematuria Qualified Code(s): N30.00 - Acute cystitis without hematuria (7) Goals of care, counseling/discussion Current Visit: No Status: Acute (8) Dementia Current Visit: No Status: Acute Qualifiers: Dementia type: associated with other underlying disease Dementia behavioral disturbance: without behavioral disturbance Qualified Code(s): F02.80 - Dementia in other diseases classified elsewhere without behavioral disturbance (9) At risk for aspiration Current Visit: No Status: Acute (10) Pneumonia Current Visit: No Status: Acute Qualifiers: Qualified Code(s): J18.9 - Pneumonia, unspecified organism (11) Acute on chronic respiratory failure with hypoxia Current Visit: No Status: Acute (12) COPD exacerbation Current Visit: No Status: Acute History of Present Illness Consult date: 06/17/17 Requesting physician: Jass Redd Reason for consult: pneumonia Chief complaint: Hip Pain History of present illness: This is an 82-year-old woman with past medical history of COPD she is a heavy smoker 60+ years. She also has underlying CHF pulmonary hypertension Parkinson' s and advanced dementia living in a nursing facility. She was noted to have a fall in the nursing facility associated with altered mental status likely in the context of urinary tract infection and was brought to [facility] for further evaluation there she was noted to have a right nondisplaced fracture of the femoral neck also with severe sepsis suspected secondary to urinary tract infection and possible pneumonia her courses been complicated by worsening respiratory failure requiring at times bilevel positive airway pressure support to maintain oxygen saturation. Today she is resting comfortably in bed and has saturation in the mid 90s on nasal cannula O2. Her daughter Lissette is at bedside she is her healthcare power of shoe lacer and has been deeply involved in her mother's care over the last 8 years. She says that she is noted very significant decline in her overall functional ability over the last year and recently has also noted that mother has been losing weight prompting discussion of possible feeding tube placement. She is clear that her mother never wanted to live on machines or undergo CPR and also declined option of feeding tube when the option was presented. Her CODE STATUS at present from the nursing facility is DNR CC although she is not enrolled to my knowledge in a hospice program and plan her healthcare power of shoe lacer denies her being enrolled in hospice. Past Med Surg Social Fam HX - Past Medical History Medical history: arthritis, COPD, dementia, GERD, hypertension, osteoporosis, syncope, other Psychiatric history: no psych history - Past Surgical History Surgical History: hysterectomy, ALCIDES/BSO, other - Social History Smoking Status: Former smoker Smokeless Tobacco Status: No Alcohol use: none Drug use: none - Family History Grandfather Hx Family Respiratory Disorders: Yes (Emphysema) Grandmother History Unknown: Yes Hx Family Neurologic Disorders: Yes (CVA) Mother Hx Family Respiratory Disorders: Yes (Empyhsema) Hx Family Neurologic Disorders: Yes (CVA) Brother Hx Family Respiratory Disorders: Yes (empyhema) Medications and Allergies Aspirin [Lo-Dose Aspirin EC] 81 mg PO DAILY 01/22/16 [History] Multivit-Min/FA/Lycopen/Lutein [Centrum Silver Tablet] 1 tab PO DAILY 01/22/16 [ History] Pravastatin Sodium 10 mg PO DAILY 01/22/16 [History] Amlodipine Besylate 2.5 mg PO DAILY 02/22/16 [History] Salicylic Acid/Ceramide Cmb #1 [Salicylic Acid 6% Cream Kit] 1 each TP MOTH [History] Hydrocortisone 1% CREAM [Cortaid] 1 appl TP TID PRN 08/26/16 [History] Ketoconazole Shampoo [Nizoral Shampoo] 1 appl TP DAILY 08/26/16 [History] Magnesium Hydroxide [Milk of Magnesia] 2,400 mg PO DAILY PRN 08/26/16 [History] Promethazine [Phenergan] 12.5 mg RC Q8H PRN 08/26/16 [History] Bisacodyl [Dulcolax] 10 mg RC DAILY PRN 12/15/16 [History] Lactulose 20 gm PO BID 12/15/16 [History] Carbidopa/Levodopa 25/100 [Sinemet 25/100] 2 each PO TID 06/14/17 [History] Lactose-Reduced Food [Ensure Plus] 1 bottle PO QID 06/14/17 [History] LevETIRAcetam [Keppra] 500 mg PO BID 06/14/17 [History] Oxygen 2 l NS AD PRN 06/14/17 [History] 3 Allergy/AdvReac Type Severity Reaction Status Date / Time No Known Allergies Allergy Verified 08/26/16 10:51 All Systems: A 10-system review of systems was performed and is negative for pertinent findings except as documented above in the HPI. Physical Examination Vital Signs: Vital Signs, Last 4 Hours Temp Pulse Resp BP Pulse Ox 06/17/17 07:06 97.9 F 81 18 117/61 99 06/17/17 04:48 17 100 General appearance: other (She says she is currently cold she knows she is at [facility] and her name is Elodia she is able to consistently answer my questions and appears quite lethargic. She is cachectic and appears chronically deconditioned ) Eyes: nonicteric ENT: oropharynx dry Neck: supple, no lymphadenopathy Auscultation: bilateral: diminished breath sounds, rhonchi Cardiovascular: regular rate and rhythm Gastrointestinal: soft, non-tender Extremities: other (Right leg swelling noted slightly increased from left is modest pain to palpation of the upper thigh patient is able to move both upper and lower extremities to command) pupils equal and round (Was Schrandt in upper extremities is symmetric and intact lower extremities there is a slight impairment in right versus left side) depressed Results - Laboratory Findings CBC and BMP: 06/16/17 06:38 12/05/17 06:38 ABG ABG pH 7.41 pH Units (7.32-7.45) 06/15/17 19:54 ABG pCO2 33 mmHg (35-45) L 06/15/17 19:54 ABG pO2 58 mmHg (85-104) L 06/15/17 19:54 ABG O2 Saturation 90 % (95-98) L 06/15/17 19:54 Abnormal lab findings: Abnormal lab results WBC 12.4 K/mcL (4.3-11.1) H 06/16/17 06:38 MCH 27.7 pg (28.0-33.3) L 06/16/17 06:38 MCHC 31.4 g/dL (31.6-35.5) L 06/16/17 06:38 Neutrophils # 11.4 K/mcL (1.6-8.9) H 06/16/17 06:38 ABG pCO2 33 mmHg (35-45) L 06/15/17 19:54 ABG pO2 58 mmHg (85-104) L 06/15/17 19:54 ABG O2 Saturation 90 % (95-98) L 06/15/17 19:54 ABG Base Excess -3 mEq/L (-2 to 3) L 06/15/17 19:54 Potassium 3.4 mEq/L (3.5-4.5) L D 06/16/17 06:38 BUN 28 mg/dL (7-20) H 06/16/17 06:38 BUN/Creatinine Ratio 34 (6-26) H 06/16/17 06:38 Glucose 176 mg/dL (70-99) H 06/16/17 06:38 Calculated Osmolality 306 (280-300) H 06/16/17 06:38 Albumin 2.9 g/dL (3.5-5.0) L 06/14/17 15:20 Globulin 3.7 g/dL (2.4-3.5) H 06/14/17 15:20 Albumin/Globulin Ratio 0.8 (1.1-2.2) L 06/14/17 15:20 Urine Clarity Turbid (Clear) A 06/14/17 12:30 Urine Protein 30 mg/dL (Neg-Trace) H 06/14/17 12:30 Urine Blood Small (Negative) H 06/14/17 12:30 Urine Nitrite Positive (Negative) A 06/14/17 12:30 Ur Leukocyte Esterase Large (Negative) H 06/14/17 12:30 Urine Microscopic RBC 5-15 per hpf (0-3) H 06/14/17 12:30 Urine Microscopic WBC TNTC per hpf (0-3) H 06/14/17 12:30 Ur Squamous Epith Cells Many per lpf (None-Few) H 06/14/17 12:30 Urine Bacteria Many per hpf (None-Few) H 06/14/17 12:30 Ur Culture Indicated? YES (NO) A 06/14/17 12:30 - Microbiology Findings Microbiology Findings: Microbiology, Last 48 Hours 06/14/17 18:07 Blood Culture - Preliminary Peripheral Venipuncture No growth. 06/14/17 18:12 Blood Culture - Preliminary Peripheral Venipuncture No growth. - Diagnostic Findings Chest x-ray: report reviewed, image reviewed - Clinical Findings Intake & Output: Intake & Output 06/16/17 06/16/17 06/17/17 15:59 23:59 07:59 Intake Total 200 / 200 305 / 305 Output Total 100 / 100 Balance 100 / 100 305 / 305 Consult Discharge Plan - Plan Referrals: NONE,PCP [Primary Care Provider] -
--- NOTE | 2017-06-17 10:29 | Orthopedics Progress Note ---
Date of Encounter: 06/17/17 Time of Encounter: 10:23 - Assessment and Plan (1) Fracture of femoral neck, right Current Visit: Yes Status: Acute Cancel surgery today due to perioperative risk. Palliative care has been consulted. We will treat this fracture non-operatively. Qualifiers: Encounter type: initial encounter Fracture type: closed Qualified Code(s) : S72.001A - Fracture of unspecified part of neck of right femur, initial encounter for closed fracture Subjective Interval history: S: R hip pain tolerable. Comfortable in bed. Has been turning with nursing assistance, not yet up to chair. O: Vitals reviewed, on 4 L O2, AF vitals otherwise stable GEN: Responds to questions RLE: +log roll/IR DNVI No other TTP A/P: 82 yo F with R FNFx -Had a long discussion with the family regarding the patient's current health status and increasing O2 requirement. Based on discussion with delinquent tax collection assistant and the hospitalist she is at a very high risk for perioperative events including during and following surgery. Surgery would likely help her somewhat with pain control but she does not walk, and I do not feel at this point it outweighs the risks. Palliative care has been consulted as well. We will cancel surgery and treat this fracture non-operatively. Objective Vital signs: Vital Signs Temp Pulse Resp BP Pulse Ox 06/17/17 08:15 100 06/17/17 08:03 18 97 06/17/17 07:06 97.9 F 81 18 117/61 99 06/17/17 04:48 17 100 06/16/17 23:59 26 99 06/16/17 20:34 16 90 06/16/17 20:15 98.2 F 101 17 138/69 91 06/16/17 16:28 16 97 06/16/17 16:23 98.3 F 101 16 126/72 97 06/16/17 11:42 97.9 F 104 15 112/63 94 06/16/17 11:12 22 89 Intake and Output 06/16/17 06/17/17 06/17/17 23:59 07:59 15:59 Intake Total 305 / 305 200 / 200 Balance 305 / 305 200 / 200 Intake: IV Fluids 305 / 305 200 / 200 Zosyn Premix 3.375 GM/200 ML 3. 200 / 200 200 / 200 375 gm In 200 ml @ 50 mls/hr IVPB Q8H [facility] Rx#:[id number] Keppra 500 MG In 0.9 % Sodium 105 / 105 Chloride 100 ML @ 420 mls/hr IVPB Q12HR [facility] Rx#:[id number] Other: Meal Dinner Percent of Meal Consumed 5% - Labs CBC & BMP: 06/16/17 06:38 06/16/17 06:38 Labs: Abnormal lab results WBC 12.4 K/mcL (4.3-11.1) H 06/16/17 06:38 MCH 27.7 pg (28.0-33.3) L 06/16/17 06:38 MCHC 31.4 g/dL (31.6-35.5) L 06/16/17 06:38 Neutrophils # 11.4 K/mcL (1.6-8.9) H 06/16/17 06:38 ABG pCO2 33 mmHg (35-45) L 06/15/17 19:54 ABG pO2 58 mmHg (85-104) L 06/15/17 19:54 ABG O2 Saturation 90 % (95-98) L 06/15/17 19:54 ABG Base Excess -3 mEq/L (-2 to 3) L 06/15/17 19:54 Potassium 3.4 mEq/L (3.5-4.5) L D 06/16/17 06:38 BUN 28 mg/dL (7-20) H 06/16/17 06:38 BUN/Creatinine Ratio 34 (6-26) H 06/16/17 06:38 Glucose 176 mg/dL (70-99) H 06/16/17 06:38 Calculated Osmolality 306 (280-300) H 06/16/17 06:38 Albumin 2.9 g/dL (3.5-5.0) L 06/14/17 15:20 Globulin 3.7 g/dL (2.4-3.5) H 06/14/17 15:20 Albumin/Globulin Ratio 0.8 (1.1-2.2) L 06/14/17 15:20 Urine Clarity Turbid (Clear) A 06/14/17 12:30 Urine Protein 30 mg/dL (Neg-Trace) H 06/14/17 12:30 Urine Blood Small (Negative) H 06/14/17 12:30 Urine Nitrite Positive (Negative) A 06/14/17 12:30 Ur Leukocyte Esterase Large (Negative) H 06/14/17 12:30 Urine Microscopic RBC 5-15 per hpf (0-3) H 06/14/17 12:30 Urine Microscopic WBC TNTC per hpf (0-3) H 06/14/17 12:30 Ur Squamous Epith Cells Many per lpf (None-Few) H 06/14/17 12:30 Urine Bacteria Many per hpf (None-Few) H 06/14/17 12:30 Ur Culture Indicated? YES (NO) A 06/14/17 12:30 - VTE Documentation of Mechanical Device: Venous foot pump, device Consult Discharge Plan - Plan Referrals: NONE,PCP [Primary Care Provider] -
[2017-06-17] MEDS: amLODIPine 5 MG TABLET PO SCH (10:35)
[2017-06-17] MEDS: Aspirin Enteric Coated 81 MG Tablet PO SCH (10:35)
[2017-06-17] MEDS: Carbidopa/Levodopa 25/100 TABLET PO SCH ×2 (10:36→14:40)
--- NOTE | 2017-06-17 11:17 | Palliative - Consult Note ---
<Mike Luna - Last Filed: 06/17/17 11:11> Date of Encounter: 06/17/17 Time of Encounter: 10:30 - Assessment and Plan (1) Goals of care, counseling/discussion Status: Acute Assessment and plan: Lengthy discussion with family regarding goals of care. Family has decided against surgery, opting for non-operative management given that her respiratory status would make extubation difficult. The family has settled on hospice, but is going to take some time to decide between different hospice providers. We will connect the patient with social work and continue to follow. The patient may be admitted to [facility] hospice before being discharged to outpatient hospice. Patient has decreased oral intake, but has established that a feeding tube would go against the patient's wishes, should it become necessary. (2) Frailty Status: Chronic Assessment and plan: PT/OT evaluation ordered (3) Fracture of femoral neck, right Status: Acute Assessment and plan: Patient has opted for nonsurgical management. Qualifiers: Encounter type: initial encounter Fracture type: closed Qualified Code(s) : S72.001A - Fracture of unspecified part of neck of right femur, initial encounter for closed fracture Palliative-CN HPI - Data of Consult Consult date: 06/17/17 Requesting Physician: Sai Lu MD Primary Care Provider: PCP NONE - Consult Narrative History of present illness: Ms. Campos is a 82 year old female who presented with an altered mental status resulting in a fall at [facility]. She has been wheelchair bound for several years, but in her confusion tried to stand up. She was noted to have a nondisplaced fracture of the right femoral neck, severe sepsis, UTI, and possible pneumonia. Her family notes that she has been declining over the last year, and has more recently started declining medications and food. Her CODE STATUS is DNR CC, though she was not currently enrolled in hospice. CC: Sai Lu MD Past Med Surg Social Fam HX - Past Medical History Medical history: arthritis, COPD, dementia, GERD, hypertension, osteoporosis, syncope, other Psychiatric history: no psych history - Past Surgical History Surgical History: hysterectomy, ALCIDES/BSO, other - Social History Smoking Status: Former smoker Smokeless Tobacco Status: No Alcohol use: none Drug use: none - Family History Grandfather Hx Family Respiratory Disorders: Yes (Emphysema) Grandmother History Unknown: Yes Hx Family Neurologic Disorders: Yes (CVA) Mother Hx Family Respiratory Disorders: Yes (Empyhsema) Hx Family Neurologic Disorders: Yes (CVA) Brother Hx Family Respiratory Disorders: Yes (empyhema) Medications and Allergies Aspirin [Lo-Dose Aspirin EC] 81 mg PO DAILY 01/22/16 [History] Multivit-Min/FA/Lycopen/Lutein [Centrum Silver Tablet] 1 tab PO DAILY 01/22/16 [ History] Pravastatin Sodium 10 mg PO DAILY 01/22/16 [History] Amlodipine Besylate 2.5 mg PO DAILY 02/22/16 [History] Salicylic Acid/Ceramide Cmb #1 [Salicylic Acid 6% Cream Kit] 1 each TP MOTH [History] Hydrocortisone 1% CREAM [Cortaid] 1 appl TP TID PRN 08/26/16 [History] Ketoconazole Shampoo [Nizoral Shampoo] 1 appl TP DAILY 08/26/16 [History] Magnesium Hydroxide [Milk of Magnesia] 2,400 mg PO DAILY PRN 08/26/16 [History] Promethazine [Phenergan] 12.5 mg RC Q8H PRN 08/26/16 [History] Bisacodyl [Dulcolax] 10 mg RC DAILY PRN 12/15/16 [History] Lactulose 20 gm PO BID 12/15/16 [History] Carbidopa/Levodopa 25/100 [Sinemet 25/100] 2 each PO TID 06/14/17 [History] Lactose-Reduced Food [Ensure Plus] 1 bottle PO QID 06/14/17 [History] LevETIRAcetam [Keppra] 500 mg PO BID 06/14/17 [History] Oxygen 2 l NS AD PRN 06/14/17 [History] 3 Allergy/AdvReac Type Severity Reaction Status Date / Time No Known Allergies Allergy Verified 08/26/16 10:51 - Constitutional Constitutional ROS PAL: anorexia - Cardiovascular Cardiovascular ROS: no chest pain - Respiratory Respiratory: dyspnea - Gastrointestinal Gastrointestinal: no abdominal pain, no nausea Palliative Care-Exam - Constitutional Vitals: Temp Pulse Resp BP Pulse Ox 97.9 F 81 18 117/61 100 06/17/17 07:06 06/17/17 07:06 06/17/17 08:03 12/06/17 07:06 06/17/17 08:15 General appearance: Present: thin Exam: frail - Head Head Exam: Present: atraumatic, normal inspection, normocephalic - ENT ENT exam: Present: mucous membranes moist - Respiratory Respiratory exam: Present: decreased breath sounds, rhonchi - Cardiovascular Cardiovascular exam: Present: RRR, +S1, +S2 - GI/Abdominal Exam GI/Abdominal exam: Present: diminished bowel sounds, soft. Absent: tenderness - Neurological Exam Neurological exam: Present: alert - Skin Skin exam: Present: dry, warm Internal Medicine - CN: Reslt - Labs CBC & Chem 7: 06/16/17 06:38 06/16/17 06:38 - ABG Interpretation ABG results: ABG ABG pH 7.41 pH Units (7.32-7.45) 06/15/17 19:54 ABG pCO2 33 mmHg (35-45) L 06/15/17 19:54 ABG pO2 58 mmHg (85-104) L 06/15/17 19:54 ABG O2 Saturation 90 % (95-98) L 06/15/17 19:54 Consult Discharge Plan - Plan Referrals: NONE,PCP [Primary Care Provider] - Palliative Quality Palliative Quality: Screen for Code Status: Yes, Screen for Goals of Care: Yes, Screen for Pain: Yes, If Pain Regimen Started, Initiate Bowel Regimen: Yes, Screen for Nausea/Vomitting: Yes Code Status: 06/15/17 11:21 CODE [Resuscitation Status: Active] [RES] Routine Comment: Resuscitation Status: DNR-Comfort Care <Ian Madison L - Last Filed: 06/17/17 16:59> Date of Encounter: 06/17/17 Palliative-CN HPI - Data of Consult Requesting Physician: Sai Lu MD Primary Care Provider: PCP NONE - Consult Narrative History of present illness: Ms. Campos is a 82 year old female CC: Sai Lu MD Palliative Care-Exam - Constitutional Vitals: Temp Pulse Resp BP Pulse Ox 97.8 F 91 18 116/67 92 06/17/17 12:10 06/17/17 12:10 06/17/17 11:25 06/17/17 12:10 06/17/17 12:30 Internal Medicine - CN: Reslt - Labs CBC & Chem 7: 06/16/17 06:38 06/16/17 06:38 - ABG Interpretation ABG results: ABG ABG pH 7.41 pH Units (7.32-7.45) 06/15/17 19:54 ABG pCO2 33 mmHg (35-45) L 06/15/17 19:54 ABG pO2 58 mmHg (85-104) L 06/15/17 19:54 ABG O2 Saturation 90 % (95-98) L 06/15/17 19:54 - Attending Attestation After long discussion with family, they decided to go ahead and go hospice we will make her GIP hospice for pain control considered for transfer to halfway the beginning of the week. Due to the fact the patient's pulmonary status is so tenuous biotics and all other aggressive care has been stopped in favor general inpatient hospice. I examined this patient and my medical decision-making was reviewed with the Resident Physician. I agree with the documented findings, disposition and treatment plan as described except to the extent set forth below. Palliative Quality Code Status: 06/15/17 11:21 CODE [Resuscitation Status: Active] [RES] Routine Comment: Resuscitation Status: DNR-Comfort Care
[2017-06-17 12:11] VITALS: BP 116/67
[2017-06-17] MEDS ORDERED: cefTRIAXone 1,000 MG in Water for inj. (sterile) 10 ML IVP SCH (14:00)
--- NOTE | 2017-06-17 14:26 | Discharge Summary ---
Date of Encounter: 06/17/17 Time of Encounter: 13:00 - Discharge Diagnosis (1) UTI (urinary tract infection) Priority: Primary Status: Acute Qualifiers: Urinary tract infection type: acute cystitis Hematuria presence: without hematuria Qualified Code(s): N30.00 - Acute cystitis without hematuria (2) Parkinson disease Priority: Secondary Status: Chronic (3) DVT prophylaxis Priority: Secondary Status: Acute (4) Pneumonia Priority: Primary Status: Suspected Qualifiers: Pneumonia type: due to Pneumococcus Laterality: bilateral Lung location: lower lobe of lung Qualified Code(s): J13 - Pneumonia due to Streptococcus pneumoniae (5) Acute respiratory failure with hypoxia Priority: Primary Status: Acute (6) COPD exacerbation Priority: Primary Status: Acute (7) Fracture of femoral neck, right Priority: Primary Status: Acute Qualifiers: Encounter type: initial encounter Fracture type: closed Qualified Code(s) : S72.001A - Fracture of unspecified part of neck of right femur, initial encounter for closed fracture - Discharge Medications Home Medications: Aspirin [Lo-Dose Aspirin EC] 81 mg PO DAILY 01/22/16 [History] Multivit-Min/FA/Lycopen/Lutein [Centrum Silver Tablet] 1 tab PO DAILY 01/22/16 [ History] Pravastatin Sodium 10 mg PO DAILY 01/22/16 [History] Amlodipine Besylate 2.5 mg PO DAILY 02/22/16 [History] Salicylic Acid/Ceramide Cmb #1 [Salicylic Acid 6% Cream Kit] 1 each TP MOTH [History] Hydrocortisone 1% CREAM [Cortaid] 1 appl TP TID PRN 08/26/16 [History] Ketoconazole Shampoo [Nizoral Shampoo] 1 appl TP DAILY 08/26/16 [History] Magnesium Hydroxide [Milk of Magnesia] 2,400 mg PO DAILY PRN 08/26/16 [History] Promethazine [Phenergan] 12.5 mg RC Q8H PRN 08/26/16 [History] Bisacodyl [Dulcolax] 10 mg RC DAILY PRN 12/15/16 [History] Lactulose 20 gm PO BID 12/15/16 [History] Carbidopa/Levodopa 25/100 [Sinemet 25/100] 2 each PO TID 06/14/17 [History] Lactose-Reduced Food [Ensure Plus] 1 bottle PO QID 06/14/17 [History] LevETIRAcetam [Keppra] 500 mg PO BID 06/14/17 [History] Oxygen 2 l NS AD PRN 06/14/17 [History] Allergies/Adverse Reactions: 3 Allergy/AdvReac Type Severity Reaction Status Date / Time No Known Allergies Allergy Verified 08/26/16 10:51 Procedures/tests Complete & Pending: Procedures Performed prior 72 hours Category Date Time Status EKG [ECG 12 lead ECG] [ECG] Routine Y 06/15/17 08:37 Completed EV echocardiogram Stat Y 06/15/17 08:35 Completed Date of admission: 06/14/17 17:30 Primary care physician: PCP NONE Consults: 06/16/17 18:12 Consult to Cardiology [CONS] Routine Comment: Consulting Provider: Cardiology [place] Reason for Consult: Pre-surgery evaluation, abnormal EKG Call Completed: No 06/16/17 18:13 Consult to Pulmonology [CONS] Routine Consulting Provider: [facility] [place] Reason for Consult: Pre-surgery evaluation, Pt has pneumonia and COPD exacerbation. Call Completed: No 06/17/17 09:06 Consult to Palliative Care [CONS] Stat Comment: Consulting Provider: Palliative [facility] [place] Reason for Consult: GOALS OF CARE Call Completed: Yes Discharging clinician: Jass Redd Anticipated date of discharge: 06/17/17 - Patient Status Disposition: Hospice - Medical Facility Condition: Fair Functional capacity at discharge: bed bound Overall status at discharge: patient is not back to baseline - Discharge Instructions Follow Up With: NONE,PCP [Primary Care Provider] - - Diet and Activity Activity: wear oxygen at all times Diet: low salt diet Hospital course: Ms. Campos is a 82 year old female admitted for hip fracture and fall. Patient is demented. Patient developed a COPD exacerbation and pneumonia before proceeding to surgery. Pulmonology consult was called. After discussing with the family regarding the risks and benefits, decision was made to pursue comfort care and not for surgery. Palliative care consult was called and saw patient. Will discharge patient to hospice care today. I personally discussed with palliative care doctor Dr. Madison and patient's family, will discontinue antibiotic and steroid upon discharge, family verbalizes understanding and agreement. I saw patient today and examined her. She is still very weak, still needed oxygen, respiratory distress has improved. Patient will discharge to our palliative care team for hospice at this point and transferred to outside hospice by palliative care team later. - Time Spent with Patient Total time spent providing and/or coordinating discharge services: 25 min Less than 30 minutes - Constitutional Vitals: Temp Pulse Resp BP Pulse Ox 97.8 F 91 18 116/67 92 06/17/17 12:10 06/17/17 12:10 06/17/17 11:25 06/17/17 12:10 06/17/17 12:30 General appearance: Present: cachectic, A&O X 1, pleasant, no acute distress - Head Head exam: Present: atraumatic, normocephalic - Eye Eye exam: Present: PERRL, conjuntiva pink, sclera anicteric Pupils: Present: PERRL - Neck Neck exam general surgery: Present: supple, trachea midline. Absent: lymphadenopathy - Respiratory Respiratory exam: Present: CTAB. Absent: accessory muscle use, rales, rhonchi, wheezes - Cardiovascular Cardiovascular exam: Present: RRR, +S1, +S2. Absent: diastolic murmur, gallop, rubs, systolic murmur - GI/Abdominal GI/Abdominal exam: Present: normal bowel sounds, soft, no peritoneal signs. Absent: distended, tenderness - Extremities Exam Extremities exam: Present: warm, radial pulses palpable and symmetrical. Absent : calf tenderness, cyanotic, pedal edema Additional comments: Rt hip ROM limited due to pain. - Neurological Exam Neurological exam: Present: CN II-XII intact, oriented X3, no focal deficits. Absent: pronater drift, facial droop, speech deficit - Skin Skin exam: Present: dry, intact - VTE Documentation of Mechanical Device: Venous foot pump, device
--- NOTE | 2017-06-17 14:30 | Physician Discharge Referral ---
Home Health/Hosp Referral Info Transfer to: Hospice Provider in Charge Post Discharge: Chief Environmental Commitment Officer - Diagnosis (1) UTI (urinary tract infection) Status: Acute (2) Parkinson disease Status: Chronic (3) DVT prophylaxis Status: Acute (4) Pneumonia Status: Suspected (5) Acute respiratory failure with hypoxia Status: Acute (6) COPD exacerbation Status: Acute (7) Fracture of femoral neck, right Status: Acute - Respiratory Orders Oxygen / L per min (2-3) Smoking Cessation: Smoking cessation has been advised. For more information, call the [place] [employer] Quit Line at 5-363-ZXWI-NOW. - Diet/Nutrition Diet/Nutrition Orders: Cardiac - Transfer Medications Home Medications: Aspirin [Lo-Dose Aspirin EC] 81 mg PO DAILY 01/22/16 [History] Multivit-Min/FA/Lycopen/Lutein [Centrum Silver Tablet] 1 tab PO DAILY 01/22/16 [ History] Pravastatin Sodium 10 mg PO DAILY 01/22/16 [History] Amlodipine Besylate 2.5 mg PO DAILY 02/22/16 [History] Salicylic Acid/Ceramide Cmb #1 [Salicylic Acid 6% Cream Kit] 1 each TP MOTH [History] Hydrocortisone 1% CREAM [Cortaid] 1 appl TP TID PRN 08/26/16 [History] Ketoconazole Shampoo [Nizoral Shampoo] 1 appl TP DAILY 08/26/16 [History] Magnesium Hydroxide [Milk of Magnesia] 2,400 mg PO DAILY PRN 08/26/16 [History] Promethazine [Phenergan] 12.5 mg RC Q8H PRN 08/26/16 [History] Bisacodyl [Dulcolax] 10 mg RC DAILY PRN 12/15/16 [History] Lactulose 20 gm PO BID 12/15/16 [History] Carbidopa/Levodopa 25/100 [Sinemet 25/100] 2 each PO TID 06/14/17 [History] Lactose-Reduced Food [Ensure Plus] 1 bottle PO QID 06/14/17 [History] LevETIRAcetam [Keppra] 500 mg PO BID 06/14/17 [History] Oxygen 2 l NS AD PRN 06/14/17 [History] Allergies/Adverse Reactions: 3 Allergy/AdvReac Type Severity Reaction Status Date / Time No Known Allergies Allergy Verified 08/26/16 10:51 Certification: Further, I certify that my clinical findings support that this patient is homebound (i.e. absences from home require considerable and taxing effort and are for medical reasons or catholic services or infrequently or short duration when for other reasons) because: Homebound Reason: Patient requires assistance of a person or device to safely leave home Attestation: My signature below is to certify that this patient is under my care and that I, or nurse practitioner, or a physician's pediatric dental assistant working with me, has a face-to -face encounter with this patient.
[2017-06-17] MEDS ORDERED: Ampicillin 2 GM in 0.9 % Sodium Chloride Mini Bag 100 ML IVPB SCH (18:00)
--- NOTE | 2017-06-17 18:23 | Electrocardiograph Report ---
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
--- NOTE | 2017-06-18 18:17 | Electrocardiograph Report ---
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
== END 2017-06-17 15:11 | disposition hospice, inpatient (51) | DRG 535 ==
LOC: 3NENU 12:10 → EMEROO 12:10 → 3NENU 16:40 → 2ANU 06-17 12:01
PROVIDERS: ADMIT Hospitalist; ATTEND Family Medicine

== ENCOUNTER 2017-06-17 13:07 | Inpatient (IN) ==
[2017-06-17] MEDS ORDERED: *HR* LORazepam 2 MG/ML VIAL IVP PRN (14:39)
[2017-06-17] MEDS ORDERED: Haloperidol Lactate 5 MG/ML VIAL IVP PRN (14:39)
[2017-06-17] MEDS ORDERED: Ondansetron 4 MG/2 ML VIAL IVP PRN (14:39)
[2017-06-17] MEDS ORDERED: Ipratropium/Albuterol Neb 3 ML IH PRN (14:39)
[2017-06-17] MEDS ORDERED: OxyCODONE CONC 5 MG/0.25 ML ORAL.SYG PO PRN (14:39)
[2017-06-17] MEDS ORDERED: Atropine Sulfate 1% 40 DROP/2 ML BOTTLE SL PRN (14:39)
[2017-06-17] MEDS ORDERED: Bisacodyl 10 MG RECTAL SUPPOSITORY RC PRN (14:39)
[2017-06-17] MEDS ORDERED: *HR* LORazepam Oral Conc 2 MG/ML PO PRN (14:39)
[2017-06-17] MEDS: Carbidopa/Levodopa 25/100 TABLET PO SCH ×2 (16:34→21:59)
[2017-06-17] MEDS: methylPREDNISolone 125 MG/2 ML VIAL IVP SCH (18:28)
[2017-06-17] MEDS: Sennosides/Docusate Sodium TABLET PO SCH (21:59)
[2017-06-18] MEDS: methylPREDNISolone 125 MG/2 ML VIAL IVP SCH ×5 (01:30→23:20)
[2017-06-18] MEDS: Carbidopa/Levodopa 25/100 TABLET PO SCH ×3 (09:42→20:00)
[2017-06-18] MEDS: Sennosides/Docusate Sodium TABLET PO SCH ×2 (09:42→20:00)
[2017-06-18] MEDS: amLODIPine 5 MG TABLET PO SCH (09:43)
--- NOTE | 2017-06-18 09:49 | Pallative History & Physical ---
Date of Encounter: 06/18/17 Time of Encounter: 07:45 Assessment and Plan (1) Acute on chronic respiratory failure with hypoxia Current visit: No Status: Acute Stable at this point, this is the hospice diagnosis, tin U oxygen and bronchodilator therapies. (2) Altered mental status Current visit: No Status: Acute I. 2 failure as well as pneumonia as well as pain from the right hip fracture this seems to be proving. Continue current meds Qualifiers: Altered mental status type: unspecified Qualified Code(s): R41.82 - Altered mental status, unspecified (3) Chronic respiratory failure with hypoxia Current visit: No Status: Acute Continue oxygen bronchodilator therapy. (4) Femur fracture, right Current visit: No Status: Acute No Plans for repair due to operative risk due to the patient's precarious respiratory status. Continue current meds for pain. Qualifiers: Qualified Code(s): S72.91XA - Unspecified fracture of right femur, initial encounter for closed fracture (5) Goals of care, counseling/discussion Current visit: No Status: Acute DNR comfort care, family is opted for GIP hospice for pain control and respiratory stabilization [facility] Patient has a right hip fracture which will not be operatively fixated, this is due to the patient's precarious pulmonary status. Hospice diagnosis is combination of pneumonia, chronic obstructive pulmonary disease with respiratory failure, and right hip fracture with a comorbidity is dementia. Internal Medicine - H&P: HPI Chief complaint: Axert hip Admitted From: Intrahospital Transfer Plans for Post Hospital Care: Hospice - Home History of present illness: Ms. 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 During the evaluation was noted the patient had very poor pulmonary status as well as [place]. He was recommended against by the medicine folks in the pulmonary folks, orthopedics agrees family agrees. Patient was brought under general inpatient hospice service to make sure her pain is under control prior to [facility] a [facility]. Currently the patient is having no pain other she has had a great deal of pain at times in that hip. He is doing about the same. Past Med Surg Social Fam HX - Past Medical History Medical history: arthritis, COPD, dementia, GERD, hypertension, osteoporosis, syncope, other Psychiatric history: no psych history - Past Surgical History Surgical History: hysterectomy, ALCIDES/BSO, other - Social History Smoking Status: Former smoker Smokeless Tobacco Status: No Alcohol use: none Drug use: none - Family History Grandfather Hx Family Respiratory Disorders: Yes (Emphysema) Grandmother Hx Family Neurologic Disorders: Yes (CVA) Mother Hx Family Respiratory Disorders: Yes (Empyhsema) Hx Family Neurologic Disorders: Yes (CVA) Brother Hx Family Respiratory Disorders: Yes (empyhema) Internal Medicine - H&P: Meds Aspirin [Lo-Dose Aspirin EC] 81 mg PO DAILY 01/22/16 [History] Multivit-Min/FA/Lycopen/Lutein [Centrum Silver Tablet] 1 tab PO DAILY 01/22/16 [ History] Pravastatin Sodium 10 mg PO DAILY 01/22/16 [History] Amlodipine Besylate 2.5 mg PO DAILY 02/22/16 [History] Salicylic Acid/Ceramide Cmb #1 [Salicylic Acid 6% Cream Kit] 1 each TP MOTH [History] Hydrocortisone 1% CREAM [Cortaid] 1 appl TP TID PRN 08/26/16 [History] Ketoconazole Shampoo [Nizoral Shampoo] 1 appl TP DAILY 08/26/16 [History] Magnesium Hydroxide [Milk of Magnesia] 2,400 mg PO DAILY PRN 08/26/16 [History] Promethazine [Phenergan] 12.5 mg RC Q8H PRN 08/26/16 [History] Bisacodyl [Dulcolax] 10 mg RC DAILY PRN 12/15/16 [History] Lactulose 20 gm PO BID 12/15/16 [History] Carbidopa/Levodopa 25/100 [Sinemet 25/100] 2 each PO TID 06/14/17 [History] Lactose-Reduced Food [Ensure Plus] 1 bottle PO QID 06/14/17 [History] LevETIRAcetam [Keppra] 500 mg PO BID 06/14/17 [History] Oxygen 2 l NS AD PRN 06/14/17 [History] 3 Allergy/AdvReac Type Severity Reaction Status Date / Time No Known Allergies Allergy Verified 08/26/16 10:51 - Constitutional Constitutional ROS PAL: no decreased appetite, no anorexia - EENT Eyes: no discharge, no pain Ears: no ear discharge, no ear pain Ears, nose, mouth, throat: no facial pain, no hoarseness, no lip swelling, no mouth pain - Cardiovascular Cardiovascular ROS: no chest pain, no chest pain at rest, no dyspnea on exertion - Respiratory Respiratory: cough, dyspnea - Gastrointestinal Gastrointestinal: constipation, no nausea, no vomiting - Genitourinary Palliative ROS female: no urinary hesitancy, no urinary incontinence, no urinary urgency - Musculoskeletal Musculoskeletal ROS IM: no arthralgias, no back pain, no joint swelling - Integumentary ROS Integumentary: no skin pain, no skin ulcer, no sores - Neurological Neurological ROS: frequent falls (Paps not frequent but one that did cause a fracture), no headache(s), no lack of coordination - Psychiatric Psychiatric general PM: no anxiety, no behavioral changes, no homicidal ideation , no suicidal ideation - Endocrine Endocrine IM: as per [facility] Palliative Care-Exam - Constitutional Vitals: Temp Pulse Resp BP Pulse Ox 97.4 F L 79 15 139/71 93 06/18/17 07:17 06/18/17 07:17 06/18/17 07:17 06/18/17 07:17 06/18/17 07:17 General appearance: Present: no acute distress - Head Head Exam: Present: atraumatic, normal inspection - Eye Eye exam: Present: EOMI, normal appearance - ENT ENT exam: Present: mucous membranes moist - Neck Neck exam: Present: normal inspection - Respiratory Respiratory exam: Present: decreased breath sounds - Cardiovascular Cardiovascular exam: Present: RRR - GI/Abdominal Exam GI/Abdominal exam: Present: normal bowel sounds. Absent: distended, guarding - Extremities Exam Extremities exam: Present: normal inspection, tenderness (Right hip). Absent: pedal edema - Neurological Exam Neurological exam: Present: alert - Psychiatric Psychiatric exam: Present: normal affect, normal mood. Absent: agitated, anxious - Skin Skin exam: Present: dry, warm Palliative Quality Palliative Quality: Screen for Code Status: Yes, Screen for Goals of Care: Yes, Screen for Pain: Yes, If Pain Regimen Started, Initiate Bowel Regimen: Yes, Screen for Nausea/Vomitting: Yes Code Status: 06/17/17 14:39 Resuscitation Status: Active [RES] Stat Comment: Resuscitation Status: DNR-Comfort Care
--- NOTE | 2017-06-18 09:57 | Event Note ---
Date of Encounter: 06/18/17 Time of Encounter: 09:55 Hospice medical laboratory technologist certification of terminal illness: Hospice benefit. Start: 06/17/2017 Hospice benefit. In: +90 days Palliative performance scale: 30-40% History: Patient with history of dementia and severe COPD, came into the hospital for right hip fracture which was deemed to be in operable due to the fact of her poor luminary status as well as pneumonia. Pulmonary status is precarious, and has worsened over the last several weeks. Patient has had been in overall decline which culminated with a fall and hip fracture. Family has opted to have no further aggressive therapy including stopping all antibiotics. For that reason I believe These findings support a life expectancy of 6 months or less. I attest that I have compose the above narrative based on my review of the patient's medical records, and or on my examination of the patient. Ian Madison M.D. Associate medical housekeeper. [facility]
[2017-06-19] MEDS: methylPREDNISolone 125 MG/2 ML VIAL IVP SCH ×3 (05:42→17:57)
[2017-06-19] MEDS: amLODIPine 5 MG TABLET PO SCH (09:03)
[2017-06-19] MEDS: Sennosides/Docusate Sodium TABLET PO SCH ×2 (09:03→21:11)
[2017-06-19] MEDS: Carbidopa/Levodopa 25/100 TABLET PO SCH ×3 (09:03→21:11)
--- NOTE | 2017-06-19 09:38 | Palliative Progress Note ---
Date of Encounter: 06/19/17 Time of Encounter: 06:50 - Assessment and plan (1) Acute on chronic respiratory failure with hypoxia Current Visit: No Status: Acute Assessment and plan: Stable at this point, this is the hospice diagnosis, continue oxygen and bronchodilator therapies. No changes today. (2) Altered mental status Current Visit: No Status: Acute Assessment and plan: Patient is quite awake and alert and able to converse well. At this point in time I feel she is probably at her baseline. Qualifiers: Altered mental status type: unspecified Qualified Code(s): R41.82 - Altered mental status, unspecified (3) Chronic respiratory failure with hypoxia Current Visit: No Status: Acute Assessment and plan: Continue oxygen bronchodilator therapy. No changes today. (4) Femur fracture, right Current Visit: No Status: Acute Assessment and plan: No Plans for repair due to operative risk due to the patient's precarious respiratory status. Continue current meds for pain. No changes today. Qualifiers: Qualified Code(s): S72.91XA - Unspecified fracture of right femur, initial encounter for closed fracture (5) Goals of care, counseling/discussion Current Visit: No Status: Acute Assessment and plan: DNR comfort care, family is opted for GIP hospice for pain control and respiratory stabilization prior to returning to skilled nursing. Patient has a right hip fracture which will not be operatively fixated, this is due to the patient's precarious pulmonary status. Hospice diagnosis is combination of pneumonia, chronic obstructive pulmonary disease with respiratory failure, and right hip fracture with a comorbidity is dementia. No changes today, patient is doing extremely well, much better than I expected given her hip fracture and her pulmonary status with pneumonia. Do believe that she is quite tenuous at this point in wish to observe for another day or so , I will not make a transition over the weekend due to the possibility of his with the handoff will anticipate a transition to skilled nursing come Thursday. Point I believe the patient still justifies GIP in terms the potential for pain and trouble breathing, however clearly if this does not change she will be skilled nursing appropriate come Thursday. - Time Spent With Patient Total time spent is greater than 50% in coordination of care (as documented) at patient's floor/unit and/or counseling patient: - Subjective Interval history: No complaints of except being thirsty. After being given her Pepsi she felt much better. H her breathing is doing okay. Her pain is under good control. - Constitutional General appearance: Present: no acute distress - Head Head exam: Present: atraumatic, normal inspection - Eye Eye exam: Present: normal appearance - ENT ENT exam: Present: mucous membranes moist - Respiratory Respiratory exam: Present: decreased breath sounds - Cardiovascular Cardiovascular exam: Present: RRR - GI/Abdominal GI/Abdominal exam: Present: normal bowel sounds, soft. Absent: tenderness - Extremities Exam Extremities exam: Present: normal inspection. Absent: tenderness (Right hip) - Neurological Exam Neurological exam: Present: alert - Psychiatric Psychiatric exam: Absent: agitated, anxious - Skin Skin exam: Present: dry, warm Palliative Quality Palliative Quality: Screen for Code Status: Yes, Screen for Goals of Care: Yes, Screen for Pain: Yes, If Pain Regimen Started, Initiate Bowel Regimen: Yes, Screen for Nausea/Vomitting: Yes Code Status: 06/17/17 14:39 Resuscitation Status: Active [RES] Stat Comment: Resuscitation Status: DNR-Comfort Care Consult Discharge Plan - Plan Referrals: NONE,PCP [Primary Care Provider] -
[2017-06-20] MEDS: methylPREDNISolone 125 MG/2 ML VIAL IVP SCH ×4 (01:20→17:01)
[2017-06-20] MEDS: Sennosides/Docusate Sodium TABLET PO SCH ×2 (07:30→21:51)
[2017-06-20] MEDS: amLODIPine 5 MG TABLET PO SCH (09:22)
[2017-06-20] MEDS: Carbidopa/Levodopa 25/100 TABLET PO SCH ×3 (09:22→21:50)
--- NOTE | 2017-06-20 12:45 | Palliative Progress Note ---
Date of Encounter: 06/20/17 Time of Encounter: 12:30 - Assessment and plan (1) Pain Current Visit: No Status: Acute Assessment and plan: Patient with fractured right hip. Denies pain at present. Tenderness upon palpation. Positioned for comfort. PRN Oxycodone. (2) Dyspnea Current Visit: No Status: Acute Assessment and plan: Continue Duonebs, O2, steroids, and position for comfort. Denies SOB. (3) Goals of care, counseling/discussion Current Visit: No Status: Acute Assessment and plan: Patient will DC to ECF at beginning of the week. Patient is comfort care with broken hip that is inoperable. Provide comfort as needed. 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 Opens eyes and speech clear. Able to give limited history. Appears comfortable. - Constitutional General appearance: Present: cooperative, no acute distress - Head Head exam: Present: atraumatic, normal inspection - Eye Eye exam: Present: PERRL - ENT ENT exam: Present: mucous membranes moist - Neck Neck exam: Present: full ROM - Respiratory Respiratory exam: Present: decreased breath sounds - Expanded Respiratory Exam Location: decreased breath sounds: Left, Right, Lower - Cardiovascular Cardiovascular exam: Present: RRR, +S1, +S2 - GI/Abdominal GI/Abdominal exam: Present: normal bowel sounds, soft - Extremities Exam Extremities exam: Present: joint swelling, tenderness (Left hip) - Neurological Exam Neurological exam: Present: alert - Psychiatric Psychiatric exam: Present: normal affect - Skin Skin exam: Present: pallor, warm Palliative Quality Palliative Quality: Screen for Code Status: Yes, Screen for Goals of Care: Yes, Screen for Pain: Yes, If Pain Regimen Started, Initiate Bowel Regimen: Yes, Screen for Nausea/Vomitting: Yes Code Status: 06/17/17 14:39 Resuscitation Status: Active [RES] Stat Comment: Resuscitation Status: DNR-Comfort Care Consult Discharge Plan - Plan Referrals: NONE,PCP [Primary Care Provider] -
[2017-06-21] MEDS: methylPREDNISolone 125 MG/2 ML VIAL IVP SCH ×5 (01:29→23:46)
[2017-06-21] MEDS: amLODIPine 5 MG TABLET PO SCH (09:07)
[2017-06-21] MEDS: Carbidopa/Levodopa 25/100 TABLET PO SCH ×3 (09:07→21:38)
[2017-06-21] MEDS: Sennosides/Docusate Sodium TABLET PO SCH ×2 (09:07→21:38)
--- NOTE | 2017-06-21 10:36 | Palliative Progress Note ---
Date of Encounter: 06/21/17 Time of Encounter: 10:00 - Assessment and plan (1) Pain Current Visit: No Status: Acute Assessment and plan: Patient with fractured right hip. Denies pain at present. Tenderness upon palpation. Positioned for comfort. PRN Oxycodone. (2) Dyspnea Current Visit: No Status: Acute Assessment and plan: Continue Duonebs, O2, steroids, and position for comfort. Denies SOB. (3) Goals of care, counseling/discussion Current Visit: No Status: Acute Assessment and plan: Patient will DC to ECF at beginning of the week. Patient is comfort care with broken hip that is inoperable. Provide comfort as needed. (4) COPD (chronic obstructive pulmonary disease) Current Visit: No Status: Chronic Qualifiers: COPD type: emphysema Emphysema type: centrilobular Qualified Code(s): J43.2 - Centrilobular emphysema - Time Spent With Patient Total time spent is greater than 50% in coordination of care (as documented) at patient's floor/unit and/or counseling patient: less than 15 minutes - Subjective Interval history: Resting quietly. Opens eyes and speech clear. Able to give limited history. Appears comfortable. - Constitutional Vitals: stable General appearance: Present: no acute distress - Head Head exam: Present: atraumatic, normal inspection - Eye Eye exam: Present: PERRL Pupils: Present: PERRL - ENT ENT exam: Present: mucous membranes moist - Neck Neck exam: Present: full ROM - Respiratory Respiratory exam: Present: decreased breath sounds - Expanded Respiratory Exam Location: decreased breath sounds: Left, Right, Lower - Cardiovascular Cardiovascular exam: Present: RRR, +S1, +S2 - GI/Abdominal GI/Abdominal exam: Present: normal bowel sounds, soft - Extremities Exam Extremities exam: Present: normal capillary refill, tenderness (right hip) - Neurological Exam Neurological exam: Present: alert Palliative Quality Palliative Quality: Screen for Code Status: Yes, Screen for Goals of Care: Yes, Screen for Pain: Yes, If Pain Regimen Started, Initiate Bowel Regimen: Yes, Screen for Nausea/Vomitting: Yes Code Status: 06/17/17 14:39 Resuscitation Status: Active [RES] Stat Comment: Resuscitation Status: DNR-Comfort Care Consult Discharge Plan - Plan Referrals: NONE,PCP [Primary Care Provider] -
[2017-06-22] MEDS: methylPREDNISolone 125 MG/2 ML VIAL IVP SCH (05:10)
[2017-06-22] MEDS: amLODIPine 5 MG TABLET PO SCH (08:50)
[2017-06-22] MEDS: predniSONE 20 MG TABLET PO SCH ×2 (08:50→17:35)
[2017-06-22] MEDS: Carbidopa/Levodopa 25/100 TABLET PO SCH ×3 (08:50→21:52)
[2017-06-22] MEDS: Sennosides/Docusate Sodium TABLET PO SCH ×2 (08:52→21:53)
--- NOTE | 2017-06-22 10:49 | Palliative Progress Note ---
Date of Encounter: 06/22/17 Time of Encounter: 07:50 - Assessment and plan (1) Acute on chronic respiratory failure with hypoxia Current Visit: No Status: Acute Assessment and plan: Stable at this point, this is the hospice diagnosis, continue oxygen and bronchodilator therapies. No changes today. Tung meds today stop IV steroids switched over to oral patient will be discharged tomorrow to custodial. (2) Altered mental status Current Visit: No Status: Acute Assessment and plan: Patient is quite awake and alert and able to converse well. At this point in time I feel she is probably at her baseline. This is completely resolved she is back to baseline at this point plan is for discharge to custodial tomorrow. Qualifiers: Altered mental status type: unspecified Qualified Code(s): R41.82 - Altered mental status, unspecified (3) Chronic respiratory failure with hypoxia Current Visit: No Status: Acute Assessment and plan: Continue oxygen bronchodilator therapy. No changes today. She will go home tomorrow making 1 last med changed today to observe and then home tomorrow back to custodial. (4) Femur fracture, right Current Visit: No Status: Acute Assessment and plan: No Plans for repair due to operative risk due to the patient's precarious respiratory status. Continue current meds for pain. No changes today. Qualifiers: Qualified Code(s): S72.91XA - Unspecified fracture of right femur, initial encounter for closed fracture (5) Goals of care, counseling/discussion Current Visit: No Status: Acute Assessment and plan: DNR comfort care, family is opted for [facility] hospice for pain control and respiratory stabilization prior to returning to custodial. Patient has a right hip fracture which will not be operatively fixated, this is due to the patient's precarious pulmonary status. Hospice diagnosis is combination of pneumonia, chronic obstructive pulmonary disease with respiratory failure, and right hip fracture with a comorbidity is dementia. It has done well since starting GIP, and no longer needs to be on GIP except for medicine changed today switching from IV to oral steroids. With that change patient no longer needs to be in GIP and she will be discharged to custodial tomorrow. Elverta is she will be going to [facility] with home ID and does not have a dede cannot get one done, therefore the patient will be discharged from [facility] to reenroll with either [facility] or in hospice. Work is working on this currently. - Time Spent With Patient Total time spent is greater than 50% in coordination of care (as documented) at patient's floor/unit and/or counseling patient: - Subjective Interval history: No complaints of except being thirsty. Triny is presently are giving her something to drink, patient has no complaints regarding pain or trouble breathing. - Constitutional General appearance: Present: no acute distress - Head Head exam: Present: atraumatic, normal inspection - Eye Eye exam: Present: normal appearance - ENT ENT exam: Present: mucous membranes moist - Respiratory Respiratory exam: Present: decreased breath sounds - Cardiovascular Cardiovascular exam: Present: RRR - GI/Abdominal GI/Abdominal exam: Present: normal bowel sounds, soft. Absent: tenderness - Extremities Exam Extremities exam: Present: normal inspection, tenderness (Right side with history of right hip fracture) - Neurological Exam Neurological exam: Present: alert - Psychiatric Psychiatric exam: Absent: agitated, anxious - Skin Skin exam: Present: dry, warm Palliative Quality Palliative Quality: Screen for Code Status: Yes, Screen for Goals of Care: Yes, Screen for Pain: Yes, If Pain Regimen Started, Initiate Bowel Regimen: Yes, Screen for Nausea/Vomitting: Yes Code Status: 06/17/17 14:39 Resuscitation Status: Active [RES] Stat Comment: Resuscitation Status: DNR-Comfort Care Consult Discharge Plan - Plan Referrals: NONE,PCP [Primary Care Provider] -
[2017-06-23 06:59] VITALS: BP 148/68
[2017-06-23] MEDS: amLODIPine 5 MG TABLET PO SCH (07:54)
[2017-06-23] MEDS: Carbidopa/Levodopa 25/100 TABLET PO SCH (07:54)
[2017-06-23] MEDS: predniSONE 20 MG TABLET PO SCH (07:54)
[2017-06-23] MEDS: Sennosides/Docusate Sodium TABLET PO SCH (07:58)
--- NOTE | 2017-06-23 09:06 | Discharge Summary ---
Date of Encounter: 06/23/17 Time of Encounter: 09:00 - Discharge Diagnosis (1) COPD (chronic obstructive pulmonary disease) Priority: Primary Status: Chronic Qualifiers: COPD type: emphysema Emphysema type: unspecified Qualified Code(s): J43.9 - Emphysema, unspecified (2) Fracture of femoral neck, right Priority: Secondary Status: Acute Qualifiers: Encounter type: initial encounter Fracture type: closed Qualified Code(s) : S72.001A - Fracture of unspecified part of neck of right femur, initial encounter for closed fracture - Discharge Medications Prescriptions: LORazepam Oral Conc [Ativan Oral Conc] 1 mg PO Q4HR PRN #30 mls PRN Reason: Anxiety OxyCODONE CONC 5 mg PO Q2H PRN #30 oral.syg PRN Reason: Moderate pain/Dyspnea Home Medications: Amlodipine Besylate 2.5 mg PO DAILY 02/22/16 [History] Hydrocortisone 1% CREAM [Cortaid] 1 appl TP TID PRN 08/26/16 [History] Bisacodyl [Dulcolax] 10 mg RC DAILY PRN 12/15/16 [History] Carbidopa/Levodopa 25/100 [Sinemet 25/100] 2 each PO TID 06/14/17 [History] LevETIRAcetam [Keppra] 500 mg PO BID 06/14/17 [History] Oxygen 2 l NS AD PRN 06/14/17 [History] Ipratropium/Albuterol Neb [Duoneb] 3 ml IH [id number] PRN inhsol 06/23/17 [Rx] LORazepam Oral Conc [Ativan Oral Conc] 1 mg PO Q4HR PRN #30 mls 06/23/17 [Rx] OxyCODONE CONC 5 mg PO Q2H PRN #30 oral.syg 06/23/17 [Rx] predniSONE [PredniSONE] 20 mg PO BIDWM tablet 06/23/17 [Rx] Allergies/Adverse Reactions: 3 Allergy/AdvReac Type Severity Reaction Status Date / Time No Known Allergies Allergy Verified 08/26/16 10:51 Internal Medicine - DS: Prov Date of admission: 06/17/17 15:23 Primary care physician: PCP NONE Admitting clinician: Ian Madison Consults: 06/17/17 14:45 Consult to Palliative Care [CONS] Routine Comment: Consulting Provider: Pall[facility] Reason for Consult: cross coverage Call Completed: Yes Discharging clinician: Adriana Montanez Anticipated date of discharge: 06/23/17 - Patient Status Disposition: Hospice - Medical Facility Condition: Serious Functional capacity at discharge: bed bound Overall status at discharge: patient is not back to baseline - Discharge Instructions Follow Up With: NONE,PCP [Primary Care Provider] - - Diet and Activity Diet: regular diet - Hospital Course Hospital course: Ms. Campos is a 82 year old female who was admitted to general inpatient hospice after a hospital stay for right femur fracture and pneumonia. Not a surgical candidate. Patient has end stage COPD. She did poorly throughout hospitalization and has had recent significant decline. Patient/family opted to discontinue atb therapy and transition to comfort care only. She was admitted to general in hospice to adjust medications and management of symptoms. She has tolerated transition to oral medications well, and is stable to transition to nursing facility. She will be transitioned to [facility] and to another hospice agency that serves that facility. - Time Spent with Patient Total time spent providing and/or coordinating discharge services: Internal Medicine - DS: Exam - Constitutional Vitals: Vital Signs Temp Pulse Resp BP Pulse Ox 06/23/17 06:50 98.1 F 66 14 148/68 99 06/22/17 20:19 98 F 82 16 122/69 94 Intake and Output 06/22/17 06/23/17 06/23/17 23:59 07:59 15:59 Output Total 100 / 100 200 / 200 Balance -100 / -100 -200 / -200 Output: Urine 100 / 100 Catheter 200 / 200 Other: # Bowel Movements 0 Weight 38 kg Patient Weight 06/23/17 23:59 Weight 38 kg General appearance: no acute distress, thin - Respiratory Respiratory exam: Present: decreased breath sounds, CTAB - Cardiovascular Cardiovascular exam: Present: +S1, +S2 - GI/Abdominal GI/Abdominal exam: Present: normal bowel sounds, soft - Additional comments: Wong with light yellow urine - Neurological Exam Neurological exam: Present: alert, oriented X3 Additional comments: generalized weakness - Skin Skin exam: Present: dry, pallor, warm
--- NOTE | 2017-06-23 09:24 | Physician Discharge Referral ---
ExtendedCare Referral Info Transfer To: [facility] with hospice care Institutional Level of Care: Intermediate - Diagnosis (1) COPD (chronic obstructive pulmonary disease) Status: Chronic (2) Fracture of femoral neck, right Status: Acute Prognosis: Poor Aware of Diagnosis: Patient, Family Aware of Prognosis: Patient, Family - Transfer Medications Prescriptions: LORazepam Oral Conc [Ativan Oral Conc] 1 mg PO Q4HR PRN #30 mls PRN Reason: Anxiety OxyCODONE CONC 5 mg PO Q2H PRN #30 oral.syg PRN Reason: Moderate pain/Dyspnea Home Medications: Amlodipine Besylate 2.5 mg PO DAILY 02/22/16 [History] Hydrocortisone 1% CREAM [Cortaid] 1 appl TP TID PRN 08/26/16 [History] Bisacodyl [Dulcolax] 10 mg RC DAILY PRN 12/15/16 [History] Carbidopa/Levodopa 25/100 [Sinemet 25/100] 2 each PO TID 06/14/17 [History] LevETIRAcetam [Keppra] 500 mg PO BID 06/14/17 [History] Oxygen 2 l NS AD PRN 06/14/17 [History] Ipratropium/Albuterol Neb [Duoneb] 3 ml IH [id number] PRN inhsol 06/23/17 [Rx] LORazepam Oral Conc [Ativan Oral Conc] 1 mg PO Q4HR PRN #30 mls 06/23/17 [Rx] OxyCODONE CONC 5 mg PO Q2H PRN #30 oral.syg 06/23/17 [Rx] predniSONE [PredniSONE] 20 mg PO BIDWM tablet 06/23/17 [Rx] Allergies/Adverse Reactions: 3 Allergy/AdvReac Type Severity Reaction Status Date / Time No Known Allergies Allergy Verified 08/26/16 10:51 - Respiratory Orders Smoking Cessation: Smoking cessation has been advised. For more information, call the [employer] Quit Line at 0-441-RPJN-NOW. - Ancillary Orders May use pressure relief devices daily prn, May go on ABEL w/family/respon green party w /meds at nurse discretion PRN - Advance Directives Code Status: DNR-Comfort Care - Mobility Orders Bedrest - Treatments Skin tear care topically daily PRN per policy, May check for fecal impaction rectally daily PRN, Fleet enema rectally every other day PRN cleansing purposes - Diet Orders Mechanical Soft CERTIFICATION: I certify that the transfer of the above named patient to an Extended Care Facility is necessary for the continuing treatment of the diagnosis listed. The above information is true and accurate reflection of patient's current condition. Confidential - Redisclosure prohibited without a patient's written consent.
== END 2017-06-23 15:00 | disposition hospice, inpatient (51) | DRG 533 ==
LOC: 2ANU 15:23
PROVIDERS: ADMIT Family Medicine Hospice and Palliative Medicine; ATTEND Family Medicine Hospice and Palliative Medicine